=== PATIENT | female | born 1935 | race Caucasian/White ===

== ENCOUNTER 2020-06-18 10:44 | Outpatient (REF) | payer MEDICARE, SELFPAY ==
[2020-06-18 10:57] LABS: MANUAL DIFF FLAG NO
[2020-06-18 11:40] LABS: Basophils Percent Auto 0.3 % (0-2); Eosinophils Absolute Auto 0.1 X10*3/uL (0.0-0.4); Eosinophils Percent Auto 2.1 % (0-4); Hematocrit 36.6 % (37-47); Hemoglobin 12.4 g/dl (12.0-16.0); Imm Gran Abs Auto 0.01 X10*3/uL (0.00-0.03); Imm Gran Pct Auto 0.2 % (0.0-0.4); Lymphocytes Absolute Auto 2.2 X10*3/uL (1.2-4.9); Lymphocytes Percent Auto 36.1 % (20-40); Mean Corpuscular HGB Conc 33.9 g/dl (31.0-35.0); Mean Corpuscular Hemoglobin 32.5 pg (27.0-33.0); Mean Corpuscular Volume 95.8 fL (80-98); Mean Platelet Volume 11.2 fL (9.4-12.3); Monocytes Absolute Auto 0.4 X10*3/uL (0.1-1.2); Monocytes Percent Auto 7.2 % (2-11); Neutrophils Absolute Auto 3.3 X10*3/uL (2.0-8.3); Neutrophils Percent Auto 54.1 % (45-73); Platelet Count 237 X10*3/uL (160-400); Red Blood Count 3.82 X10*6/uL (4.20-5.50); Red Cell Distribution Width 11.9 % (11.0-16.0); White Blood Count 6.1 X10*3/uL (4.8-10.8)
[2020-06-18 11:52] LABS: Glucose Urine UA NEG (NEG); Leukocyte Esterase Urine TRACE (NEG); Nitrite Urine NEG (NEG); PH 6.5 (5.0-8.0); Urine Blood NEG (NEG); Urine Ketones NEG (NEG); Urine Protein NEG (NEG-TRACE)
[2020-06-18 11:55] LABS: Appearance Urine CLOUDY; Color Urine YELLOW; Estimated Average Glucose 100 mg/dL; Hemoglobin A1c % 5.1 %
[2020-06-18 12:08] LABS: Creatinine Urine 98.77 mg/dL; Microalbum/Creatinine Ratio Ur 47.5 ug/mg cr
[2020-06-18 12:10] LABS: Bacteria Urine 3+ /LPF; RBC Urine 0-2 /HPF (0); Squamous Epithelial Cell Urine 1+ /LPF
[2020-06-18 12:13] LABS: Alanine Aminotransferase 25 U/L (0-31); Albumin Level 4.5 g/dL (3.5-5.0); Alkaline Phosphatase 86 U/L (39-117); Anion Gap 13 (12-20); Aspartate Amino Transferase 28 U/L (5-31); Bilirubin Total 1.2 mg/dL (0.0-1.0); Blood Urea Nitrogen 17 mg/dL (9-16); Calcium 9.6 mg/dL (8.4-10.2); Carbon Dioxide 30 mmol/L (22-29); Chloride 99 mmol/L (96-108); Cholesterol 175 mg/dL; Estimated Glomerular Filt Rate > 60; Glucose Fasting 92 mg/dL (60-99); HDL Cholesterol 78 mg/dL; LDL Cholesterol Calculated 71 mg/dl; Potassium 4.1 mmol/L (3.3-5.1); Sodium 138 mmol/L (135-145); Total Protein 7.1 g/dL (6.5-8.0); Triglycerides 134 mg/dL
[2020-06-18 12:28] LABS: Reflex LDLD? No
[2020-06-18 12:34] LABS: TSH reflex Free T4 1.02 uIU/mL (0.32-4.0)
== END 2020-06-18 10:45 | disposition home or self-care (01) ==
LOC: HO.LNP 10:44
PROVIDERS: Visit Provider Internal Medicine
DX: E05.90 Thyrotoxicosis, unspecified without thyrotoxic crisis or storm (principal); I10 Essential (primary) hypertension; R73.03 Prediabetes; E78.00 Pure hypercholesterolemia, unspecified
CPT/HCPCS: 80053; 80061; 81001; 81003; 82043; 83036; 84443; 85025

== ENCOUNTER 2020-08-13 13:30 | Outpatient (REF) | payer SELFPAY ==
--- NOTE | 2020-08-13 14:06 | MHC.AU.P13 ---
Hearing Instrument Maintenance Date of Visit: 08/13/20 Right Ear: Staffing Analyst: Phonak Model: [place] SP Serial Number: [id number] Repair Warranty: Loss and Damage Warranty: Battery Size: 13 Color: beige Tubing: #13 THICK DOUBLE BEND Left Ear: Staffing Analyst: Phonak Model: IGNACIO SP Serial Number: [id number] Repair Warranty: Loss and Damage Warranty: Battery Size: 13 Color: BEIGE Follow-Up Summary: Aids brought in for cleaning - cleaned aids and retubed earmolds - both amplifying clearly. Recommended updated audiological evaluation. Recommendations: Recommendations: Hearing instrument follow-up or maintenance as needed. Signature: Provider: MISAEL Vanegas
== END 2020-08-13 13:31 | disposition home or self-care (01) ==
LOC: HO.HAP 13:30
PROVIDERS: Visit Provider Internal Medicine
DX: Z46.1 Encounter for fitting and adjustment of hearing aid (principal)
CPT/HCPCS: 99499

== ENCOUNTER 2021-02-08 00:18 | Inpatient (IN) | payer MEDICARE, SELFPAY ==
[2021-02-08] VITALS (22 sets, daily range): BP systolic 110–202; BP diastolic 65–103; PULSE 70–89; RESP 12–20; TEMP 36.3–36.8; O2SAT 90–100; BMI 23.0; BMI 25.0
--- NOTE | ~2021-02-08 | XR_ITS ---
EXAMINATION: XR ANKLE, RIGHT CLINICAL INFORMATION: Fall, right ankle pain, injury with deformity rule out fract COMPARISON: None TECHNIQUE: AP, lateral, and mortise views of the right ankle. FINDINGS: Bones are markedly osteopenic. There is a oblique transverse fracture of the base of the medial malleolus with lateral displacement of the medial malleolar fragment by 3 mm. . There is a oblique Hernandez B fracture of the distal fibula with lateral displacement of the distal fibular fracture by 5 mm. As seen on the lateral view, there is cortical irregularity along the posterior malleolus which is likely due to a mildly displaced posterior malleolar avulsion fracture, not well seen on the AP view. Surrounding soft tissues are swollen. There is mild widening of the medial ankle mortise. Diffuse edema signal. Moderate sized enthesopathic spur is present at the plantar fascial origin on the calcaneus. 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 XR/XR ankle RT 2V IMPRESSION: 1. Trimalleolar fracture at the right ankle with mild lateral displacement of the distal fracture fragments. 2. Marked osteopenia.
--- NOTE | ~2021-02-08 | XR_ITS ---
EXAMINATION: XR ANKLE, RIGHT CLINICAL INFORMATION: Postreduction films. COMPARISON: Same date at 12:44 AM TECHNIQUE: Four views of the right ankle. FINDINGS: Cast material is in place. There is persistent lateral displacement of the medial and lateral malleolar fracture fragments. The suspected posteriorly the fracture is not well seen. There is persistent widening of the medial ankle mortise. Soft tissues are swollen. Plantar calcaneal enthesopathic spur. Osteophyte is at the first MTP joint. XR/XR ankle RT 2V IMPRESSION: Persistent lateral displacement of the malleolar fracture fragments and talus status post splinting.
--- NOTE | ~2021-02-08 | FL_ITS ---
EXAMINATION: XR FLUOROSCOPY WITH IMAGES CLINICAL INFORMATION: Right ankle fracture COMPARISON: Previous x-ray 02/08/2021 TECHNIQUE: Fluoroscopy performed by Dr. Nilson Medel. Fluoroscopy time: 0.2 minutes DAP: 0.008 mGym2 Images: 3 FINDINGS: There is a plate and screws transfixing the distal fibular shaft fracture. There are 2 screws transfixing the transverse medial malleolar fracture. There is improved alignment. FL/FL guidance in OR IMPRESSION: Fluoroscopic guidance for ORIF of right ankle fracture.
--- NOTE | 2021-02-08 00:37 | ECG_ITS ---
Test Reason : FALL Blood Pressure : / mmHG Vent. Rate : 072 BPM Atrial Rate : 072 BPM P-R Int : 182 ms QRS Dur : 074 ms QT Int : 406 ms P-R-T Axes : 062 011 017 degrees QTc Int : 444 ms Sinus rhythm with occasional Premature ventricular complexes Nonspecific T wave abnormality Inferior leads Abnormal ECG No previous ECGs available Referred By: Momo Reno Electronically Signed By:BEATRICE PASCAL MD
--- NOTE | 2021-02-08 00:38 | ED_ITS ---
HPI - Fall General Chief Complaint: Fall Stated Complaint: ankle pain due to pain Time Seen by Provider: 02/08/21 00:32 Source: patient Mode of arrival: EMS Limitations: no limitations History of Present Illness HPI Narrative: 85-year-old female who presents emergency department for evaluation of a right ankle injury from a trip and fall at home. The patient states that she tripped and injured her right ankle. She states that after injuring her ankle she was unable to stand and walk. She denies any other inju ry. She denies head, neck, chest, abdominal injury. The patient states that she lives at home with her who has dementia. She states that her daughter lives nearby. She states that she did drink some wine last night but cannot quantify the amount of wine that she drank. She denied being ill in any way prior to the fall. She is currently complaining of right ankle pain which she describes as a sharp achy pain which is worse with movement. The pain is 9/10 at its worst. She did not take any pain medications prior to coming to the emergency department. Related Data Home Medications Medication Instructions Recorded Confirmed Unobtainable 02/08/21 02/08/21 Allergies Allergy/AdvReac Type Severity Reaction Status Date / Time No Known Allergies Allergy Unverified 12/21/19 15:56 [No Known Allergies*] Review of Systems Review of Systems: Yes all other systems are reviewed and are negative [facility] Past Medical History [facility] Narrative: Past medical history: Hypertension, hyperlipidemia, vasovagal syncope. Past surgical history: None. Social history: The patient lives with her has dementia. She states that her daughter lives nearby. She denies tobacco use. She does drink alcohol occasionally and she states she drink wine last night. She denies drug use. Medical History (Updated 02/08/21 @ 07:24 by Momo Reno MD) High cholesterol HTN (hypertension) Vaso-vagal reaction Social History Social History Alcohol intake: current Alcohol intake frequency: a few times a week Patient Tobacco Use Status: Never used Tobacco Use of substances other than those prescribed or required for medical reasons: No Advance Directives: No Advance Directives Information Provided: No Physical Exam Vital Signs: Vital Signs: Last Vital Signs Temp 98.1 F 02/08/21 01:30 Pulse 72 02/08/21 06:00 Resp 16 02/08/21 06:00 BP 174/70 H 02/08/21 04:00 Pulse Ox 95 02/08/21 02:44 Body Mass Index 23.0 Const: General: cooperative and no acute distress Orientation/consciousness: oriented to person and oriented to place Limitations: no limitations HENMT: Head: Yes normal to inspection, Yes normocephalic and Yes atraumatic Ears: external ears normal General nose exam: Normal external nose present Face and sinus: Yes normal facial exam Mouth: Normal oral and palatal mucosa present Throat: Yes posterior oropharynx normal Eyes: General: appearance normal, both eyes and all related structures Pupils: Equal, round and reactive pupils present Neck: Neck: Yes normal visual inspection, Yes no lymphadenopathy, Yes trachea midline and Yes supple Chest: Chest palpation & inspection: normal inspection of the chest and normal palpation of entire chest wall Resp: Effort & Inspection: normal respiratory effort and able to speak in complete sentences Auscultation: clear to auscultation bilaterally Cardio: Rate: regular rate Rhythm: abnormal rhythm regularly irregular Heart sounds: S1 normal heart sound present, S2 normal heart sound present and no murmurs GI: Inspection: Yes normal to inspection Palpation (GI): Soft to palpation, nontender and no guarding Auscultation: normal bowel sounds : General: Yes no CVA tenderness Back/Spine/Pelvis: Back: no CVA tenderness Skin: General skin exam: no rashes or lesions noted Neuro: General: oriented to person and oriented to place Cranial nerves: Yes CN's II-XII intact bilaterally and Yes Equal, round and reactive pupils present Cognition (Neuro): normal cognition Motor exam (neuro): 5/5 motor strength present throughout Extrem: Other: The patient has ecchymosis and soft tissue swelling to her right ankle with obvious deformity to the ankle, her extremities neurovascularly intact. Psych: Appearance: grossly normal Speech and movement: Normal speech and movement present Affect: normal affect Attitude: cooperative Thought process: Normal thought process present Thought content: Normal thought content present Course Course Course Narrative: 85-year-old female who presents emergency department for evaluation of trip and fall with injury to her right ankle. The patient's vital signs revealed an elevated blood pressure of 192/88 otherwise were unremarkable. Her exam does reveal an obvious deformity with ecchymosis and soft tissue swelling of her right ankle. I did order laboratory evaluation includes CBC, CMP, PT/INR, PTT, blood alcohol level. Twelve EKG and right ankle x-rays will be obtained. The patient'morgan will be treated with morphine 4 mg IV. 0653: The patient's x-ray of her right ankle revealed a trimalleolar fracture at the right ankle with mild lateral displacement of the distal fracture fragments. Laboratory evaluation revealed an H&H of 12 and 35.7. I was detectable but not elevated at 4.1. Blood alcohol level was elevated at 105. Using procedural sedation, I did reduce the patient's fracture and the patient was placed in a sugar-tung Ortho Glass and posterior ortho glass splint. Patient's extremities neurovascular intact. I did discuss the patient's fracture with the covering orthopedic physician kindergarten assistant,Rosalind Silva. She recommended follow-up with Orthopedics in several days to determine if the patient needs outpatient surgery or this could be managed with casting. The patient's age, the patient will be kept in the emergency department for case management and physical therapy evaluation to determine if she can be discharged home or if she needs to go to [facility]. I will also try to obtain an Orthopedic consult while the patient is here in the emergency department. 0716: Physician observation started at 0716. Patient placed in physician observation because the patient needed more time for case management and PT evaluation determine if the patient can be safely discharged home were she needs [facility]. At the time observation was started the patient's vitals were stable, patient is alert and oriented , Neuro: nonfocal, CV RRR, Lungs clear, right lower extremity neurovascular intact, ortho glass splint in place. Procedures Orthopedic Fracture Reduction Right ankle trimalleolar fracture: Time Out Performed: Yes Side: right Fracture Reduction Location: tibia (Distal) and fibula (Distal) Analgesia: procedural sedation (Propofol) Technique: traction/counter-traction Post Reduction X-rays Demonstrate: acceptable reduction Post-reduction neuro exam: intact Post-reduction vascular exam: intact Splint Applied: Yes (Ortho glass stirrup splint and posterior short-leg splint) Patient Tolerated Procedure: well MDM - Fall Lab Data Result diagrams: 02/08/21 00:48 02/08/21 00:48 Labs: Lab Results 02/08/21 02/08/21 02/08/21 Range/Units 00:48 00:48 00:48 WBC 9.3 (4.8-10.8) X10*3/uL RBC 3.78 L (4.20-5.50) X10*6/uL Hgb 12.0 (12.0-16.0) g/dl Hct 35.7 L (37.0-47.0) % MCV 94.4 (80.0-98.0) fL MCH 31.7 (27.0-33.0) pg MCHC 33.6 (31.0-35.0) g/dl RDW 11.9 (11.0-16.0) % Plt Count 226 (160-400) X10*3/uL MPV 10.5 (9.4-12.3) fL Immature Gran % (Auto) 0.2 (0.0-0.4) % Neut % (Auto) 73.3 H (45-73) % Lymph % (Auto) 19.7 L (20-40) % Bradley % (Auto) 5.7 (2-11) % Eos % (Auto) 0.9 (0-4) % Baso % (Auto) 0.2 (0-2) % Lymph # (Auto) 1.8 (1.2-4.9) X10*3/uL [place] # (Auto) 0.5 (0.1-1.2) X10*3/uL Eos # (Auto) 0.1 (0.0-0.4) X10*3/uL Baso # (Auto) 0.0 (0.0-0.2) X10*3/uL Abs Immat Gran (auto) 0.02 (0.00-0.03) X10*3/uL Absolute Neuts (auto) 6.8 (2.0-8.3) x10*3/uL Absolute Nucleated RBC 0.000 (0.0-0.012) X10*3/uL Nucleated RBC % (auto) 0.0 (0.0-0.2) /100WBC PT 10.5 (9.9-13.0) SEC INR 0.9 (0.9-1.1) APTT 29.3 (24.1-38.0) SEC Sodium 136 (135-145) mmol/L Potassium 4.3 (3.3-5.1) mmol/L Chloride 99 (96-108) mmol/L Carbon Dioxide 25 (22-29) mmol/L Anion Gap 16 (12-20) BUN 14 (9-16) mg/dL Creatinine 0.75 (0.5-1.4) mg/dL Estim Creat Clear Calc 46.5 Estimated GFR > 60 Random Glucose 121 H (60-115) mg/dL Calcium 9.8 (8.4-10.2) mg/dL Total Bilirubin 0.8 (0.0-1.0) mg/dL AST 28 (5-31) U/L ALT 31 (0-31) U/L Alkaline Phosphatase 96 (39-117) U/L Troponin I High Sens (<3.5-17.0) ng/L Total Protein 6.8 (6.5-8.0) g/dL Albumin 4.2 (3.5-5.0) g/dL Ethyl Alcohol mg/dL 02/08/21 02/08/21 Range/Units 00:48 01:03 WBC (4.8-10.8) X10*3/uL RBC (4.20-5.50) X10*6/uL Hgb (12.0-16.0) g/dl Hct (37.0-47.0) % MCV (80.0-98.0) fL MCH (27.0-33.0) pg MCHC (31.0-35.0) g/dl RDW (11.0-16.0) % Plt Count (160-400) X10*3/uL MPV (9.4-12.3) fL Immature Gran % (Auto) (0.0-0.4) % Neut % (Auto) (45-73) % Lymph % (Auto) (20-40) % Bradley % (Auto) (2-11) % Eos % (Auto) (0-4) % Baso % (Auto) (0-2) % Lymph # (Auto) (1.2-4.9) X10*3/uL [place] # (Auto) (0.1-1.2) X10*3/uL Eos # (Auto) (0.0-0.4) X10*3/uL Baso # (Auto) (0.0-0.2) X10*3/uL Abs Immat Gran (auto) (0.00-0.03) X10*3/uL Absolute Neuts (auto) (2.0-8.3) x10*3/uL Absolute Nucleated RBC (0.0-0.012) X10*3/uL Nucleated RBC % (auto) (0.0-0.2) /100WBC PT (9.9-13.0) SEC INR (0.9-1.1) APTT (24.1-38.0) SEC Sodium (135-145) mmol/L Potassium (3.3-5.1) mmol/L Chloride (96-108) mmol/L Carbon Dioxide (22-29) mmol/L Anion Gap (12-20) BUN (9-16) mg/dL Creatinine (0.5-1.4) mg/dL Estim Creat Clear Calc Estimated GFR Random Glucose (60-115) mg/dL Calcium (8.4-10.2) mg/dL Total Bilirubin (0.0-1.0) mg/dL AST (5-31) U/L ALT (0-31) U/L Alkaline Phosphatase (39-117) U/L Troponin I High Sens 4.1 (<3.5-17.0) ng/L Total Protein (6.5-8.0) g/dL Albumin (3.5-5.0) g/dL Ethyl Alcohol 105 mg/dL ECG Data Attestation: I personally reviewed and interpreted this ECG as follows: Interpretation: 0059 normal sinus rhythm rate of 72, normal OH interval QRS interval QTC interval, occasional PVC, no ST segment elevation, no ST segment depression, no significant T-wave abnormalities. Discharge Plan Discharge Clinical Impression: Closed trimalleolar fracture of ankle Qualifiers: Encounter type: initial encounter Laterality: right Qualified Code(s): S82.851A - Displaced trimalleolar fracture of right lower leg, initial encounter for closed fracture Fall Qualifiers: Encounter type: initial encounter Qualified Code(s): W19.XXXA - Unspecified fall, initial encounter Alcohol intoxication Qualifiers: Complication of substance-induced condition: uncomplicated Qualified Code(s): F10.920 - Alcohol use, unspecified with intoxication, uncomplicated Prescriptions: No Action Unobtainable RF: 0
[2021-02-08] MEDS: Morphine Sulfate 4 MG/ML CARTRIDGE IVPUSH ×2 (00:50→02:31)
[2021-02-08 00:55] LABS: MANUAL DIFF FLAG NO
--- NOTE | 2021-02-08 00:55 | PC.NURSE ---
x-ray at bedside patient medicated for pain. last time she had something to eat or drink was at 6pm last night. reports pain is 4/0 whikle stationary, 9/10 with movement.
[2021-02-08 01:01] LABS: Basophils Percent Auto 0.2 % (0-2); Eosinophils Absolute Auto 0.1 X10*3/uL (0.0-0.4); Eosinophils Percent Auto 0.9 % (0-4); Hematocrit 35.7 % (37.0-47.0); Imm Gran Abs Auto 0.02 X10*3/uL (0.00-0.03); Imm Gran Pct Auto 0.2 % (0.0-0.4); Lymphocytes Absolute Auto 1.8 X10*3/uL (1.2-4.9); Lymphocytes Percent Auto 19.7 % (20-40); Mean Corpuscular HGB Conc 33.6 g/dl (31.0-35.0); Mean Corpuscular Hemoglobin 31.7 pg (27.0-33.0); Mean Corpuscular Volume 94.4 fL (80.0-98.0); Mean Platelet Volume 10.5 fL (9.4-12.3); Monocytes Absolute Auto 0.5 X10*3/uL (0.1-1.2); Monocytes Percent Auto 5.7 % (2-11); Neutrophils Absolute Auto 6.8 x10*3/uL (2.0-8.3); Neutrophils Percent Auto 73.3 % (45-73); Platelet Count 226 X10*3/uL (160-400); Red Blood Count 3.78 X10*6/uL (4.20-5.50); Red Cell Distribution Width 11.9 % (11.0-16.0); White Blood Count 9.3 X10*3/uL (4.8-10.8)
[2021-02-08 01:12] LABS: INTERNATIONAL NORM RATIO 0.9 (0.9-1.1); Prothrombin Time 10.5 SEC (9.9-13.0)
[2021-02-08 01:14] LABS: Partial Thromboplastin Time 29.3 SEC (24.1-38.0)
[2021-02-08 01:15] LABS: Ethanol 105 mg/dL
[2021-02-08 01:19] LABS: Alanine Aminotransferase 31 U/L (0-31); Albumin Level 4.2 g/dL (3.5-5.0); Alkaline Phosphatase 96 U/L (39-117); Anion Gap 16 (12-20); Aspartate Amino Transferase 28 U/L (5-31); Bilirubin Total 0.8 mg/dL (0.0-1.0); Blood Urea Nitrogen 14 mg/dL (9-16); Calcium 9.8 mg/dL (8.4-10.2); Carbon Dioxide 25 mmol/L (22-29); Chloride 99 mmol/L (96-108); Creatinine Clr Calc Pharmacy 46.5; Estimated Glomerular Filt Rate > 60; Glucose Random 121 mg/dL (60-115); Potassium 4.3 mmol/L (3.3-5.1); Sodium 136 mmol/L (135-145); Total Protein 6.8 g/dL (6.5-8.0)
[2021-02-08 01:27] LABS: Troponin-I High Sensitivity 4.1 ng/L (<3.5-17.0)
[2021-02-08] MEDS: propofoL 200 MG/20 ML VIAL 60 MG IVPUSH (01:56)
--- NOTE | 2021-02-08 02:15 | PC.NURSE ---
PATIENT TOLERATED PROCEDURE WELL. MD GIVING 30MG OF PROPROFOL IV, WITNESSED WASTE OF THE ADDITIONAL ORDERED 30 MG WASTED WITH ISAIAS KENYON. DOCUMENTED ADJUSTED DOSE IN THE EMAR.
--- NOTE | 2021-02-08 03:31 | PC.NURSE ---
PATIET UNSURE OF HOME MEDICATION FAMILY MEMBER UNSURE OF MEDICATIONS. FAMILY MEMBER INSTRUCTED TO BRING MEDICATION LIST WHEN RETURNING TO THE DEPARTMENT IN THE AM. PATIENT OFFERING NO COMPLAINTS AT THIS TIME PAIN IS 1/10. NO DISTRESS NOTED.
--- NOTE | 2021-02-08 08:34 | PHA.MEDREC ---
Pharmacy Consult ? Medication Reconciliation Pharmacy has completed the medication reconciliation.
[2021-02-08] MEDS: ondansetron HCL 4 MG/2 ML VIAL IVPUSH (09:11)
--- NOTE | 2021-02-08 09:52 | MHC.CM.ED ---
pt would like to go to [facility] as a first choice, secondary choices are [facility] in [place]. pt has been vaccinated c [employer]: mid may and beginning of june of 2020. a HCP was completed per family request. daughter is at bedside. at the time of this note patient was admitted as inpatient . cm to cont. to follow.
--- NOTE | 2021-02-08 10:57 | PC.NURSE ---
The pt is resting in bed, alert and oriented x 3, daughter at bedside, RLE splint in place at site of knon R ankle Fx. pt is TBADM and she verbalizes an understanding of this and of the need for R ankle surgical repair. Speech clear and appropriate. SHe is pain free. No CP or SOB. She is taking PO food and fluids without difficulty. Pt is incontinent of urine - skin yhas been cleansed, linens changed. Awaiting inpatient bed assignment,
[2021-02-08 12:24] LABS: COVID-19 Test Negative (Negative); IDNOW Serial# 9DD0AD1C
--- NOTE | 2021-02-08 12:32 | PM.IMCN ---
History of Present Illness Data of Consult Service Date: 02/08/21 Requesting physician: Nilson Medel Primary Care Provider: Cesar Estrada MD [facility] Reason for consult: fall, foot fx 85-year-old female with past medical history of hypertension, Graves disease status post thyroidectomy in the past, hyperlipidemia, legally blind, loud on hearing: Came to the hospital status post fall. Patient said that she was watching TV show called clementoparsnehal-and then she went to switch of the lights-she says that she was supposed to return slowly but trying to turn quickly and lost balance and fell down. Denies any chest pain or palpitations or dizziness or shortness of breath before during or after the episode. She said she did not loss of consciousness She also has history of falling down before. Denies any new complaint abdominal pain or fever or chills or nausea or vomiting Denies any cough Denies any weakness or numbness. Lab imaging and EKG reviewed: Foot x-ray: Shows a right foot fracture CBC: WBCs 9.3, H&H 12.0/35.7 Platelets 226 For BUN: 14, creatinine 0.75 potassium 4.3 trop 4.1 EKG: NSR , hr 72 Socially: She lives with her a spent, ADL independent before the fall, could able to climb 1 flight of stair but she said is difficult to walk excessively for her on from last few years due to a knee arthritis. Review of Systems Review of Systems: As above. Yes all other systems are reviewed and are negative [facility] Medical History High cholesterol HTN (hypertension) Vaso-vagal reaction Pertinent family history: She says for her sister had heart disease. Social History Alcohol intake: current Alcohol intake frequency: a few times a week Patient Tobacco Use Status: Never used Tobacco Use of substances other than those prescribed or required for medical reasons: No Advance Directives: No Advance Directives Information Provided: No Meds Allergies Allergy/AdvReac Type Severity Reaction Status Date / Time No Known Allergies Allergy Unverified 12/21/19 15:56 [No Known Allergies*] Active Medications: Current Medications Acetaminophen (Acetaminophen 325 Mg Tablet) 650 mg PO Q6H PRN PRN Reason: Pain, Mild (Pain Scale 1-3) Docusate Sodium (Docusate Sodium 100 Mg Capsule) 100 mg PO BID [facility] Hydromorphone HCl (Hydromorphone Hcl 0.5 Mg/0.5 Ml Syringe) 0.25 mg IVPUSH Q4H PRN; Protocol PRN Reason: Pain, Severe (Pain Scale 7-10) Oxycodone HCl (Oxycodone Hcl Immed Release 5 Mg Tablet) 5 mg PO Q4H PRN PRN Reason: Pain, Moderate (Pain Scale 4-6 Pharmacy Consult (Consult Rx Perform Med Rec) 1 each MISCELLANE ONCE PRN PRN Reason: Consult order Sodium Chloride (0.9 % Sodium Chloride Flush 3 Ml Syringe) 3 ml IVFLUSH QSHIFT [facility] Home Medications Medication Instructions Recorded Confirmed Last Taken Type atorvastatin 10 mg tablet 10 mg PO DAILY 02/08/21 02/08/21 02/07/21 History estradiol 1 g VAGINAL SUWE 02/08/21 02/08/21 02/05/21 History latanoprost 0.005 % eye drops 1 drp OPHTHALMIC-RIGHT BEDTIME 02/08/21 02/08/21 02/07/21 History levothyroxine 100 mcg tablet 100 mcg PO DAILY 02/08/21 02/08/21 02/07/21 History metoprolol succinate 50 mg 50 mg PO DAILY 02/08/21 02/08/21 02/07/21 History tablet,extended release 24 hr omeprazole 20 mg capsule,delayed 1 cap PO DAILY 02/08/21 02/08/21 02/07/21 History release valsartan 320 mg tablet 320 mg PO DAILY 02/08/21 02/08/21 02/07/21 History Physical Exam Vital Signs and Narrative: Vital Signs: Last Vital Signs Temp 98.1 F 02/08/21 01:30 Pulse 81 02/08/21 11:56 Resp 14 02/08/21 11:56 BP 184/75 H 02/08/21 11:56 Pulse Ox 95 02/08/21 11:56 Body Mass Index 23.0 Physical exam: Appearance: Alert.? Oriented X3.? not in distress.? Eyes: Pupils equal, round and reactive to light.? Sclera nonicteric.? ENT: Pharynx normal.? Moist mucous membranes. cvs: rrr, [id number] , no murmur res: clear to auscultation ,no rhonchii or wheezing abd: no rebound or guarding ,nt, bs present. ext pulses present , no cyanosis oe edema , right foot wrapped with dressing , able to wiggle toes. neuro: axo3 , nonfocal. Results Labs CBC and Chem 7: 02/08/21 00:48 02/08/21 00:48 Labs: Laboratory Results - last 24 hr 02/08/21 02/08/21 02/08/21 00:48 00:48 00:48 MCV 94.4 MCH 31.7 MCHC 33.6 RDW 11.9 Plt Count 226 MPV 10.5 Immature Gran % (Auto) 0.2 Neut % (Auto) 73.3 H Lymph % (Auto) 19.7 L [place] % (Auto) 5.7 Eos % (Auto) 0.9 Baso % (Auto) 0.2 Lymph # (Auto) 1.8 [place] # (Auto) 0.5 Eos # (Auto) 0.1 Baso # (Auto) 0.0 Abs Immat Gran (auto) 0.02 Absolute Neuts (auto) 6.8 Absolute Nucleated RBC 0.000 Nucleated RBC % (auto) 0.0 PT 10.5 INR 0.9 APTT 29.3 Anion Gap 16 Estim Creat Clear Calc 46.5 Estimated GFR > 60 Random Glucose 121 H Calcium 9.8 Total Bilirubin 0.8 AST 28 ALT 31 Alkaline Phosphatase 96 Troponin I High Sens Total Protein 6.8 Albumin 4.2 Ethyl Alcohol COVID-19 ([facility]) COVID-19 Clin Com 02/08/21 02/08/21 02/08/21 00:48 01:03 11:59 MCV MCH MCHC RDW Plt Count MPV Immature Gran % (Auto) Neut % (Auto) Lymph % (Auto) [place] % (Auto) Eos % (Auto) Baso % (Auto) Lymph # (Auto) [place] # (Auto) Eos # (Auto) Baso # (Auto) Abs Immat Gran (auto) Absolute Neuts (auto) Absolute Nucleated RBC Nucleated RBC % (auto) PT INR APTT Anion Gap Estim Creat Clear Calc Estimated GFR Random Glucose Calcium Total Bilirubin AST ALT Alkaline Phosphatase Troponin I High Sens 4.1 Total Protein Albumin Ethyl Alcohol 105 COVID-19 ([facility]) Negative COVID-19 Clin Com See Note Imaging Radiologist's Impressions: Impressions Ankle X-Ray 02/08/21 00:32 IMPRESSION: 1. Trimalleolar fracture at the right ankle with mild lateral displacement of the distal fracture fragments. 2. Marked osteopenia. Ankle X-Ray 02/08/21 02:19 IMPRESSION: Persistent lateral displacement of the malleolar fracture fragments and talus status post splinting. Assessment and Plan (1) Hypothyroid: Status: Acute 85-year-old female with past medical history of hypertension, supplement-came to the hospital because of fall and foot fracture. 1. foot Fx: Pain mangement with oxycodone and morphine bowel regimen further management as per surgery Rcri -no hx of heart dis, Hf, chd, dm,cerebrovascular dis or pulmonary dis, function status somewhat limited but could climb 1 flight 12 steps stairs at home , ekg seems fine. Patient is moderate risk for given surgical procedure. 2. HTn:continue metoprolol and valsartan 3.Graves disease status post thyroidectomy :on levothyroxine . 4. Hlp: continue statin. 5. hx o alcohol use : once weekly add thiamine folic acid. dvt prophylax: mech devices as per primaty team. code status :full code Above management discussed with the patient patient daughter at bedside in detail length they both understand and in agreement with the above plan including code status currently patient is full code. Time spent 70 minutes
[2021-02-08 13:05] LABS: Estimated Average Glucose 103 mg/dL; Hemoglobin A1c % 5.2 %
--- NOTE | 2021-02-08 13:16 | P.HPOP_ITS ---
History of Present Illness History of Present Illness Date of Service: 02/08/21 <Rosalind Silva PA-C - Last Filed: 02/08/21 13:25> 02/11/21 <Nilson Medel MD - Last Filed: 02/11/21 13:30> Chief complaint: left distal femur fracture <Rosalind Silva PA-C - Last Filed: 02/08/21 13:25> Narrative: Licha Holguin is a 85 year old female with a past medical history significant for hypertension and hyperlipidemia who presents to the emergency department after sustaining a unwitnessed mechanical fall. She is accompanied by her daughter Mirella at bedside. The patient is ambulatory at baseline without assistance and lives at home with her who has dementia in which she cares for. She denies hitting her head, shortness of breath, or chest pain. She does have a prior history of syncopal episodes a which is attributed to orthostatic hypotension. <Rosalind Silva PA-C - Last Filed: 02/08/21 13:25> Review of Systems Review of Systems: Yes all other systems are reviewed and are negative <Rosalind Silva PA-C - Last Filed: 02/08/21 13:25> [facility] Past Medical History Medical History: Medical History High cholesterol HTN (hypertension) Vaso-vagal reaction <Rosalind Silva PA-C - Last Filed: 02/08/21 13:25> Social History Social History: Social History Household Members: Spouse Housing: House Do you presently have visiting nurse or other home services: No Alcohol intake: current Alcohol intake frequency: a few times a week Patient Tobacco Use Status: Never used Tobacco Use of substances other than those prescribed or required for medical reasons: No Currently Displaying Signs/Symptoms of Drug Intoxication Withdrawal: No Have you been hit, kicked, punched, or otherwise hurt by someone within the past year? If so, by whom?: No Do you feel safe in your current relationship?: No Is there a partner from a previous relationship who is making you feel unsafe now?: No Are you made to feel afraid or neglected: No Spiritual Healthcare Practices: latter day Are you DNR?: No Advance Directives: No Advance Directives Information Provided: No Advance Directives on File: Yes Do you have thoughts of harming others: None Do you have a plan to hurt others: No Plan Recently lost weight without trying: No How much weight loss: 2-13 pounds Eating poorly because of decreased appetite: No Nutrition screen score: 1 Nutrition Risks: No Nutritional Risk Patient : No : No Poor oral hygiene: No Current occupational status: retired <Rosalind Silva PA-C - Last Filed: 02/08/21 13:25> Meds Allergies/Adverse reactions: Allergies Allergy/AdvReac Type Severity Reaction Status Date / Time No Known Allergies Allergy Unverified 12/21/19 15:56 [No Known Allergies*] <Rosalind Silva PA-C - Last Filed: 02/08/21 13:25> Active Medications: Current Medications Acetaminophen (Acetaminophen 325 Mg Tablet) 650 mg PO Q6H PRN PRN Reason: Pain, Mild (Pain Scale 1-3) Atorvastatin Calcium (Atorvastatin Calcium 10 Mg Tablet) 10 mg PO DAILY [facility] Docusate Sodium (Docusate Sodium 100 Mg Capsule) 100 mg PO BID [facility] Hydromorphone HCl (Hydromorphone Hcl 0.5 Mg/0.5 Ml Syringe) 0.25 mg IVPUSH Q4H PRN; Protocol PRN Reason: Pain, Severe (Pain Scale 7-10) Latanoprost (Latanoprost 0.005 % Ophth Vivien 2.5 Ml Drops) 1 drop EYE-RIGHT BEDTIME [facility] Levothyroxine Sodium (Levothyroxine Sodium 100 Mcg Tablet) 100 mcg PO DAILY@0600 [facility] Metoprolol Succinate (Metoprolol Succinate Er 50 Mg Tab.Er.24h) 50 mg PO DAILY [facility]; Protocol Omeprazole (Omeprazole 20 Mg Capsule.Dr) 20 mg PO DAILY@0630 [facility] Oxycodone HCl (Oxycodone Hcl Immed Release 5 Mg Tablet) 5 mg PO Q4H PRN PRN Reason: Pain, Moderate (Pain Scale 4-6 Pharmacy Consult (Consult Rx Perform Med Rec) 1 each MISCELLANE ONCE PRN PRN Reason: Consult order Sodium Chloride (0.9 % Sodium Chloride Flush 3 Ml Syringe) 3 ml IVFLUSH [facility] Valsartan (Valsartan 320 Mg Tablet) 320 mg PO DAILY [facility]; Protocol <Rosalind Silva PA-C - Last Filed: 02/08/21 13:25> Home medications: Home Medications Medication Instructions Recorded Confirmed Last Taken Type atorvastatin 10 mg tablet 10 mg PO DAILY 02/08/21 02/08/21 02/07/21 History estradiol 1 g VAGINAL SUWE 02/08/21 02/08/21 02/05/21 History latanoprost 0.005 % eye drops 1 drp OPHTHALMIC-RIGHT BEDTIME 02/08/21 02/08/21 1 04/09/20 History levothyroxine 100 mcg tablet 100 mcg PO DAILY 02/08/21 02/08/21 02/07/21 History metoprolol succinate 50 mg 50 mg PO DAILY 02/08/21 02/08/21 02/07/21 History tablet,extended release 24 hr omeprazole 20 mg capsule,delayed 1 cap PO DAILY 02/08/21 02/08/21 02/07/21 History release valsartan 320 mg tablet 320 mg PO DAILY 02/08/21 02/08/21 02/07/21 History <Rosalind Silva PA-C - Last Filed: 02/08/21 13:25> Physical Exam Vital Signs: Vital Signs: Last Vital Signs Temp 98.1 F 02/08/21 01:30 Pulse 81 02/08/21 11:56 Resp 14 02/08/21 11:56 BP 184/75 H 02/08/21 11:56 Pulse Ox 95 02/08/21 11:56 Body Mass Index 23.0 <Rosalind Silva PA-C - Last Filed: 02/08/21 13:25> Const: General: cooperative, healthy appearing and no acute distress <Rosalind Silva PA-C - Last Filed: 02/08/21 13:25> Resp: Effort & Inspection: normal respiratory effort and able to speak in complete sentences <ANTONINA Wheeler Last Filed: 02/08/21 13:25> Cardio: Rate: regular rate <ANTONINA Wheeler Last Filed: 02/08/21 13:25> Peripheral pulses: Peripheral pulses 2+ throughout <Rosalind Drake ANTONINA Silva - Last Filed: 02/08/21 13:25> GI: Palpation (GI): Soft to palpation <Rosalind Drake ANTONINA Silva - Last Filed: 02/08/21 13:25> Skin: Lesions: no lesions <Rosalind Silva PA-C - Last Filed: 02/08/21 13:25> Rashes: no rashes <Rosalind Noelle Silva PA-C - Last Filed: 02/08/21 13:25> Extrem: Other: Right ankle skin is intact with minimal edema and ecchymosis. Patient is able to dorsiflex and plantar flex but is limited due to pain. Tenderness over the medial and lateral malleolus. Sensation is intact. Pedal pulse is not palpable on exam however the patient has warm perfusing tissue. <Rosalind Silva PA-C - Last Filed: 02/08/21 13:25> Results Labs Result Diagrams: : 02/11/21 06:04 02/11/21 06:04 <Rosalind K ANTONINA Silva Duong Last Filed: 02/08/21 13:25> Labs: Abnormal lab results 02/08/21 02/08/21 Range/Units 00:48 00:48 RBC 3.78 L (4.20-5.50) X10*6/uL Hct 35.7 L (37.0-47.0) % Neut % (Auto) 73.3 H (45-73) % Lymph % (Auto) 19.7 L (20-40) % Random Glucose 121 H (60-115) mg/dL H & H 02/08/21 Range/Units 00:48 Hgb 12.0 (12.0-16.0) g/dl Hct 35.7 L (37.0-47.0) % Coagulation 02/08/21 Range/Units 00:48 INR 0.9 (0.9-1.1) All other labs normal. <ANTONINA Wheeler Last Filed: 02/08/21 13:25> Assessment and Plan (1) Closed trimalleolar fracture of ankle: Qualifiers: Encounter type: initial encounter Laterality: right Qualified Code(s): S82.851A - Displaced trimalleolar fracture of right lower leg, initial encounter for closed fracture <Rosalind Silva PA-C - Last Filed: 02/08/21 13:25> Status: Acute <Rosalind Silva PA-C - Last Filed: 02/08/21 13:25> Ms. Holguin is an 85-year-old female with a past medical history significant for hypertension and hyperlipidemia. She also reports that she has had multiple syncopal episodes in the past which were treated to orthostatic hypotension. Yesterday evening she was in her home and sustained a mechanical fall. She presented to the ED where x-rays were obtained and she was found to have a right ankle trimalleolar fracture. The patient was placed in a posterior splint as well as a stirrup splint and Orthopedics was consulted for further evaluation and treatment. I discussed the case with Dr. Medel and explained the extent of the injury to the patient and her daughter Mirella. I explained the options available which include surgical intervention. I explained the procedure in detail along with the length of recovery and rehab course. I explained the risk, benefits and alternatives. Risk including, but not limited to infection, blood clots, bleeding, non union or malunion and nerve/tissue damage to surrounding areas. I answered all their questions and with their understanding they have consented to move forward with Operative Fixation of the right ankle. We will monitor the p atient daily for evaluation of swelling in preparation for surgical intervention. Emerita Vu can be reached at [phone] <Rosalind Silva PA-C - Last Filed: 02/08/21 13:25> Quality Stroke Does the patient have a stroke diagnosis?: No <Rosalind Silva PA-C - Last Filed: 02/08/21 13:25> VTE Prior VTE?: No <Rosalind Silva PA-C - Last Filed: 02/08/21 13:25> VTE Risk Level:: Surgical - very high <ANTONINA Wheeler Last Filed: 02/08/21 13:25> VTE Device Contraindication: N/A - Device Ordered <Rosalind Silva PA-C - Last Filed: 02/08/21 13:25> VTE Drug Contraindication: N/A - Med Ordered <Rosalind Silva PA-C - Last Filed: 02/08/21 13:25> Procedures Date of Service Date of Service: 02/08/21 <Rosalind Silva PA-C - Last Filed: 02/08/21 13:25>
[2021-02-08] MEDS: Metoprolol Succinate ER 50 MG TAB.ER.24H PO (14:25)
[2021-02-08] MEDS: Atorvastatin Calcium 10 MG TABLET PO (14:26)
[2021-02-08] MEDS: Levothyroxine Sodium 100 MCG TABLET PO (14:26)
[2021-02-08] MEDS: Valsartan 320 MG TABLET PO (14:32)
[2021-02-08] MEDS: 0.9 % Sodium Chloride Flush 3 ML SYRINGE IVFLUSH ×2 (16:27→21:57)
[2021-02-08] MEDS: amLODIPine Besylate 2.5 MG TABLET PO (19:24)
[2021-02-08] MEDS: ALPRAZolam 0.25 MG TABLET PO (19:25)
[2021-02-08] MEDS: Latanoprost 0.005 % Ophth Sol 2.5 ML DROPS 1 DROP EYE-RIGHT (21:57)
[2021-02-08] MEDS: Docusate Sodium 100 MG CAPSULE PO (21:57)
[2021-02-09] VITALS (10 sets, daily range): BP systolic 121–198; BP diastolic 68–88; PULSE 58–82; RESP 18–20; TEMP 36.3–37.1; O2SAT 91–97
[2021-02-09 05:40] LABS: MANUAL DIFF FLAG NO
[2021-02-09] MEDS: Levothyroxine Sodium 100 MCG TABLET PO (05:43)
[2021-02-09] MEDS: Omeprazole 20 MG CAPSULE.DR PO (05:43)
[2021-02-09 05:51] LABS: Basophils Percent Auto 0.1 % (0-2); Eosinophils Absolute Auto 0.1 X10*3/uL (0.0-0.4); Eosinophils Percent Auto 1.7 % (0-4); Hematocrit 32.5 % (37.0-47.0); Hemoglobin 11.1 g/dl (12.0-16.0); Imm Gran Abs Auto 0.01 X10*3/uL (0.00-0.03); Imm Gran Pct Auto 0.1 % (0.0-0.4); Lymphocytes Absolute Auto 1.3 X10*3/uL (1.2-4.9); Lymphocytes Percent Auto 16.6 % (20-40); Mean Corpuscular HGB Conc 34.2 g/dl (31.0-35.0); Mean Corpuscular Hemoglobin 32.3 pg (27.0-33.0); Mean Corpuscular Volume 94.5 fL (80.0-98.0); Mean Platelet Volume 10.9 fL (9.4-12.3); Monocytes Absolute Auto 0.8 X10*3/uL (0.1-1.2); Neutrophils Absolute Auto 5.4 x10*3/uL (2.0-8.3); Neutrophils Percent Auto 71.5 % (45-73); Platelet Count 187 X10*3/uL (160-400); Red Blood Count 3.44 X10*6/uL (4.20-5.50); White Blood Count 7.6 X10*3/uL (4.8-10.8)
[2021-02-09 06:06] LABS: Anion Gap 15 (12-20); Blood Urea Nitrogen 13 mg/dL (9-16); Calcium 9.3 mg/dL (8.4-10.2); Carbon Dioxide 27 mmol/L (22-29); Chloride 96 mmol/L (96-108); Creatinine Clr Calc Pharmacy 58.1; Estimated Glomerular Filt Rate > 60; Glucose Fasting 109 mg/dL (60-99); Sodium 134 mmol/L (135-145)
--- NOTE | 2021-02-09 08:36 | PM.PNORT ---
Subjective Subjective Date of Service: 02/09/21 Interval history: Patient is resting comfortably in bed. Overnight the patient had an increase in blood pressure. Medicine was notified and medications adjusted accordingly. Patient reports that her pain is tolerable. No additional complaints. Physical Exam Vital Signs: Vital Signs: Last Vital Signs Temp 97.6 F 02/09/21 07:14 Pulse 73 02/09/21 07:14 Resp 18 02/09/21 07:14 BP 185/82 H 02/09/21 07:14 Pulse Ox 93 02/09/21 07:14 Body Mass Index 25.0 Const: General: cooperative, healthy appearing and no acute distress Resp: Effort & Inspection: normal respiratory effort and able to speak in complete sentences Cardio: Rate: regular rate Peripheral pulses: Peripheral pulses 2+ throughout GI: Palpation (GI): Soft to palpation Skin: Lesions: no lesions Rashes: no rashes Extrem: Other: Right ankle skin intact. Mild swelling and ecchymosis. Patient is able to demonstrate limited dorsiflexion and plantarflexion due to pain. She is able to move all digits. Sensation intact. Procedures Date of Service Date of Service: 02/09/21 Progress Note: A&P Assessment and plan (1) Closed trimalleolar fracture of ankle: Status: Acute Assessment and Plan: Pain management Surgical planning for ORIF right ankle once swelling allows Keep splint clean, dry, and intact Elevate on 3 pillows Fall Risk Details Current Medications: Current Medications Acetaminophen (Acetaminophen 325 Mg Tablet) 650 mg PO Q6H PRN PRN Reason: Pain, Mild (Pain Scale 1-3) Alprazolam (Alprazolam 0.25 Mg Tablet) 0.25 mg PO DAILY PRN PRN Reason: anxiety Amlodipine Besylate (Amlodipine Besylate 2.5 Mg Tablet) 2.5 mg PO DAILY [facility]; Protocol Atorvastatin Calcium (Atorvastatin Calcium 10 Mg Tablet) 10 mg PO DAILY [facility] Last Admin: 02/08/21 14:26 Dose: 10 mg Documented by: Docusate Sodium (Docusate Sodium 100 Mg Capsule) 100 mg PO BID [facility] Last Admin: 02/08/21 21:57 Dose: 100 mg Documented by: Folic Acid (Folic Acid 1 Mg Tablet) 1 mg PO DAILY [facility] Hydromorphone HCl (Hydromorphone Hcl 0.5 Mg/0.5 Ml Syringe) 0.25 mg IVPUSH Q4H PRN; Protocol PRN Reason: Pain, Severe (Pain Scale 7-10) Latanoprost (Latanoprost 0.005 % Ophth Vivien 2.5 Ml Drops) 1 drop EYE-RIGHT BEDTIME [facility] Last Admin: 02/08/21 21:57 Dose: 1 drop Documented by: Levothyroxine Sodium (Levothyroxine Sodium 100 Mcg Tablet) 100 mcg PO DAILY@0600 [facility] Last Admin: 02/09/21 05:43 Dose: 100 mcg Documented by: Metoprolol Succinate (Metoprolol Succinate Er 50 Mg Tab.Er.24h) 50 mg PO DAILY [facility]; Protocol Last Admin: 02/08/21 14:25 Dose: 50 mg Documented by: Omeprazole (Omeprazole 20 Mg Capsule.Dr) 20 mg PO DAILY@0630 [facility] Last Admin: 02/09/21 05:43 Dose: 20 mg Documented by: Oxycodone HCl (Oxycodone Hcl Immed Release 5 Mg Tablet) 5 mg PO Q4H PRN PRN Reason: Pain, Moderate (Pain Scale 4-6 Pharmacy Consult (Consult Rx Perform Med Rec) 1 each MISCELLANE ONCE PRN PRN Reason: Consult order Sodium Chloride (0.9 % Sodium Chloride Flush 3 Ml Syringe) 3 ml IVFLUSH QSHIFT [facility] Last Admin: 02/08/21 21:57 Dose: 3 ml Documented by: Thiamine HCl (Thiamine Hcl 100 Mg Tablet) 100 mg PO DAILY [facility] Valsartan (Valsartan 320 Mg Tablet) 320 mg PO DAILY [facility]; Protocol Last Admin: 02/08/21 14:32 Dose: 320 mg Documented by: Time Spent With Patient Time: Total time spent is greater than 50% in coordination of care (as documented) at patient's floor/unit and/or counseling patient: Time with patient: less than 15 minutes Quality Stroke Does the patient have a stroke diagnosis?: No VTE Prior VTE?: No VTE Risk Level:: Surgical - very high VTE Device Contraindication: N/A - Device Ordered VTE Drug Contraindication: N/A - Med Ordered
[2021-02-09] MEDS: Valsartan 320 MG TABLET PO (09:21)
[2021-02-09] MEDS: Metoprolol Succinate ER 50 MG TAB.ER.24H PO (09:22)
[2021-02-09] MEDS: Docusate Sodium 100 MG CAPSULE PO ×2 (09:22→20:04)
[2021-02-09] MEDS: Atorvastatin Calcium 10 MG TABLET PO (09:22)
[2021-02-09] MEDS: Acetaminophen 325 MG TABLET 650 MG PO (09:23)
[2021-02-09] MEDS: Folic Acid 1 MG TABLET PO (09:25)
[2021-02-09] MEDS: Thiamine HCL 100 MG TABLET PO (09:25)
[2021-02-09] MEDS: amLODIPine Besylate 2.5 MG TABLET PO ×2 (09:27→15:49)
[2021-02-09] MEDS: 0.9 % Sodium Chloride Flush 3 ML SYRINGE IVFLUSH ×3 (09:32→23:57)
--- NOTE | 2021-02-09 09:38 | HO.PM.IMPN ---
Subjective Subjective Date of Service: 02/09/21 Interval History: htn Review of Systems Denies any new complaint of chest pain or shortness of breath or abdominal pain or fever or chills or nausea or vomiting Denies any cough Denies any weakness or numbness. slightly anxious about procedure. Physical Exam Vital Signs: Vital Signs: Last Vital Signs Temp 97.6 F 02/09/21 07:14 Pulse 73 02/09/21 07:14 Resp 18 02/09/21 07:14 BP 185/82 H 02/09/21 07:14 Pulse Ox 93 02/09/21 07:14 Body Mass Index 25.0 Appearance: Alert.? Oriented X3.? not in distress.? Eyes: Pupils equal, round and reactive to light.? Sclera nonicteric.? ENT: Pharynx normal.? Moist mucous membranes. cvs: rrr, [id number] , no murmur res: clear to auscultation ,no rhonchii or wheezing abd: no rebound or guarding ,nt, bs present. ext pulses present , no cyanosis oe edema , right foot wrapped with dressing , able to wiggle toes. neuro: axo3 , nonfocal. Objective Data Active Medications Acetaminophen (Acetaminophen 325 Mg Tablet) 650 mg PO Q6H PRN PRN Reason: Pain, Mild (Pain Scale 1-3) Last Admin: 02/09/21 09:23 Dose: 650 mg Documented by: DIAN Alprazolam (Alprazolam 0.25 Mg Tablet) 0.25 mg PO DAILY PRN PRN Reason: anxiety Amlodipine Besylate (Amlodipine Besylate 2.5 Mg Tablet) 2.5 mg PO DAILY [facility]; Protocol Last Admin: 02/09/21 09:27 Dose: 2.5 mg Documented by: DIAN Atorvastatin Calcium (Atorvastatin Calcium 10 Mg Tablet) 10 mg PO DAILY [facility] Last Admin: 02/09/21 09:22 Dose: 10 mg Documented by: DIAN Docusate Sodium (Docusate Sodium 100 Mg Capsule) 100 mg PO BID [facility] Last Admin: 02/09/21 09:22 Dose: 100 mg Documented by: DIAN Folic Acid (Folic Acid 1 Mg Tablet) 1 mg PO DAILY [facility] Last Admin: 02/09/21 09:25 Dose: 1 mg Documented by: DIAN Hydromorphone HCl (Hydromorphone Hcl 0.5 Mg/0.5 Ml Syringe) 0.25 mg IVPUSH Q4H PRN; Protocol PRN Reason: Pain, Severe (Pain Scale 7-10) Latanoprost (Latanoprost 0.005 % Ophth Vivien 2.5 Ml Drops) 1 drop EYE-RIGHT BEDTIME [facility] Last Admin: 02/08/21 21:57 Dose: 1 drop Documented by: JOSEPH Levothyroxine Sodium (Levothyroxine Sodium 100 Mcg Tablet) 100 mcg PO DAILY@0600 [facility] Last Admin: 02/09/21 05:43 Dose: 100 mcg Documented by: JOSEPH Metoprolol Succinate (Metoprolol Succinate Er 50 Mg Tab.Er.24h) 50 mg PO DAILY [facility]; Protocol Last Admin: 02/09/21 09:22 Dose: 50 mg Documented by: DIAN Omeprazole (Omeprazole 20 Mg Capsule.Dr) 20 mg PO DAILY@0630 [facility] Last Admin: 02/09/21 05:43 Dose: 20 mg Documented by: JOSEPH Oxycodone HCl (Oxycodone Hcl Immed Release 5 Mg Tablet) 5 mg PO Q4H PRN PRN Reason: Pain, Moderate (Pain Scale 4-6 Pharmacy Consult (Consult Rx Perform Med Rec) 1 each MISCELLANE ONCE PRN PRN Reason: Consult order Sodium Chloride (0.9 % Sodium Chloride Flush 3 Ml Syringe) 3 ml IVFLUSH QSHIFT [facility] Last Admin: 02/09/21 09:32 Dose: 3 ml Documented by: DIAN Thiamine HCl (Thiamine Hcl 100 Mg Tablet) 100 mg PO DAILY [facility] Last Admin: 02/09/21 09:25 Dose: 100 mg Documented by: DIAN Valsartan (Valsartan 320 Mg Tablet) 320 mg PO DAILY [facility]; Protocol Last Admin: 02/09/21 09:21 Dose: 320 mg Documented by: DIAN Labs CBC & Chem 7: 02/09/21 05:25 02/09/21 05:25 Labs: Laboratory Results - last 24 hr 02/08/21 02/08/21 02/09/21 00:48 11:59 05:25 MCV 94.5 MCH 32.3 MCHC 34.2 RDW 12.0 Plt Count 187 MPV 10.9 Immature Gran % (Auto) 0.1 Neut % (Auto) 71.5 Lymph % (Auto) 16.6 L Nye % (Auto) 10.0 Eos % (Auto) 1.7 Baso % (Auto) 0.1 Lymph # (Auto) 1.3 Nye # (Auto) 0.8 Eos # (Auto) 0.1 Baso # (Auto) 0.0 Abs Immat Gran (auto) 0.01 Absolute Neuts (auto) 5.4 Absolute Nucleated RBC 0.000 Nucleated RBC % (auto) 0.0 Anion Gap Estim Creat Clear Calc Estimated GFR Fasting Glucose Estimat Average Glucose 103 Hemoglobin A1c % 5.2 Calcium COVID-19 ([facility]) Negative COVID-19 Clin Com See Note 02/09/21 05:25 MCV MCH MCHC RDW Plt Count MPV Immature Gran % (Auto) Neut % (Auto) Lymph % (Auto) Nye % (Auto) Eos % (Auto) Baso % (Auto) Lymph # (Auto) Nye # (Auto) Eos # (Auto) Baso # (Auto) Abs Immat Gran (auto) Absolute Neuts (auto) Absolute Nucleated RBC Nucleated RBC % (auto) Anion Gap 15 Estim Creat Clear Calc 58.1 Estimated GFR > 60 Fasting Glucose 109 H Estimat Average Glucose Hemoglobin A1c % Calcium 9.3 COVID-19 ([facility]) COVID-19 Clin Com Assessment and Plan (1) Hypothyroid: Status: Acute Assessment and Plan: 85-year-old female with past medical history of hypertension, supplement-came to the hospital because of fall and foot fracture. 1. foot Fx: Pain mangement with oxycodone and morphine bowel regimen further management as per surgery 2. HTn uncontrolled -multifactorial , may be pain/stress also contributing:continue metoprolol and valsartan, will add small dose amlodipine. 3.Graves disease status post thyroidectomy :on levothyroxine . 4. Hlp: continue statin. 5. hx o alcohol use : add thiamine folic acid. [facility]. Quality Stroke Does the patient have a stroke diagnosis?: No VTE Prior VTE?: No VTE Risk Level:: Surgical - very high VTE Device Contraindication: N/A - Device Ordered VTE Drug Contraindication: N/A - Med Ordered
[2021-02-09] MEDS: Enoxaparin Sodium 40 MG/0.4 ML SYRINGE SUBCUT (12:31)
--- NOTE | 2021-02-09 13:03 | MHC.CM.PN ---
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 PT REPORTS SHE RECENTLY CHANGED HER HCP HER HAS DEMENTIA IMM DELIVERED PT IS AWARE SHE WILL LIKELY NEED STR PT [facility]
[2021-02-09] MEDS: Latanoprost 0.005 % Ophth Sol 2.5 ML DROPS 1 DROP EYE-RIGHT (21:44)
[2021-02-10] VITALS (9 sets, daily range): BP systolic 136–188; BP diastolic 64–90; PULSE 70–89; RESP 15–20; TEMP 36.2–37.4; O2SAT 93–96
[2021-02-10] MEDS: Omeprazole 20 MG CAPSULE.DR PO (06:33)
[2021-02-10] MEDS: Levothyroxine Sodium 100 MCG TABLET PO (06:33)
[2021-02-10 06:40] LABS: MANUAL DIFF FLAG NO
[2021-02-10 06:57] LABS: Basophils Percent Auto 0.3 % (0-2); Eosinophils Absolute Auto 0.1 X10*3/uL (0.0-0.4); Eosinophils Percent Auto 1.7 % (0-4); Hematocrit 33.1 % (37.0-47.0); Hemoglobin 11.1 g/dl (12.0-16.0); Imm Gran Abs Auto 0.02 X10*3/uL (0.00-0.03); Imm Gran Pct Auto 0.3 % (0.0-0.4); Lymphocytes Absolute Auto 1.3 X10*3/uL (1.2-4.9); Lymphocytes Percent Auto 19.1 % (20-40); Mean Corpuscular HGB Conc 33.5 g/dl (31.0-35.0); Mean Corpuscular Volume 92.5 fL (80.0-98.0); Mean Platelet Volume 11.2 fL (9.4-12.3); Monocytes Absolute Auto 0.8 X10*3/uL (0.1-1.2); Monocytes Percent Auto 11.5 % (2-11); Neutrophils Absolute Auto 4.4 x10*3/uL (2.0-8.3); Neutrophils Percent Auto 67.1 % (45-73); Platelet Count 191 X10*3/uL (160-400); Red Blood Count 3.58 X10*6/uL (4.20-5.50); Red Cell Distribution Width 11.6 % (11.0-16.0); White Blood Count 6.6 X10*3/uL (4.8-10.8)
[2021-02-10] MEDS: Thiamine HCL 100 MG TABLET PO (07:32)
[2021-02-10] MEDS: Valsartan 320 MG TABLET PO (07:32)
[2021-02-10] MEDS: NIFEdipine ER 30 MG TAB.ER.24 60 MG PO (07:32)
[2021-02-10] MEDS: Atorvastatin Calcium 10 MG TABLET PO (07:33)
[2021-02-10] MEDS: Metoprolol Succinate ER 50 MG TAB.ER.24H PO (07:33)
[2021-02-10] MEDS: 0.9 % Sodium Chloride Flush 3 ML SYRINGE IVFLUSH ×3 (07:33→22:41)
[2021-02-10 07:34] LABS: Anion Gap 12 (12-20); Blood Urea Nitrogen 12 mg/dL (9-16); Carbon Dioxide 30 mmol/L (22-29); Chloride 94 mmol/L (96-108); Creatinine Clr Calc Pharmacy 63.9; Estimated Glomerular Filt Rate > 60; Glucose Fasting 98 mg/dL (60-99); Sodium 132 mmol/L (135-145)
[2021-02-10] MEDS: Folic Acid 1 MG TABLET PO (07:34)
--- NOTE | 2021-02-10 08:16 | P.PNOP_ITS ---
Subjective Subjective Date of Service: 02/10/21 Interval history: Patient is resting comfortably in bed. Patient reports that her pain is tolerable. No additional complaints. Physical Exam Vital Signs: Vital Signs: Last Vital Signs Temp 98.6 F 02/10/21 07:08 Pulse 70 02/10/21 07:33 Resp 18 02/10/21 07:08 BP 188/90 H 02/10/21 07:33 Pulse Ox 93 02/10/21 07:08 Body Mass Index 25.0 Const: General: cooperative, healthy appearing and no acute distress Resp: Effort & Inspection: normal respiratory effort and able to speak in complete sentences Cardio: Rate: regular rate Peripheral pulses: Peripheral pulses 2+ throughout GI: Palpation (GI): Soft to palpation Skin: Lesions: no lesions Rashes: no rashes Extrem: Other: Right ankle skin intact. Mild swelling and ecchymosis. Patient is able to demonstrate limited dorsiflexion and plantarflexion due to pain. She is able to move all digits. Sensation intact. Procedures Date of Service Date of Service: 02/10/21 Progress Note: A&P Assessment and plan (1) Closed trimalleolar fracture of ankle: Status: Acute Assessment and Plan: Pain management Surgical planning for ORIF right ankle once swelling allows - Likely Wednesday and patient will be NPO after midnight tonight Keep splint clean, dry, and intact Elevate on 3 pillows Fall Risk Details Current Medications: Current Medications Acetaminophen (Acetaminophen 325 Mg Tablet) 650 mg PO Q6H PRN PRN Reason: Pain, Mild (Pain Scale 1-3) Last Admin: 02/09/21 09:23 Dose: 650 mg Documented by: Alprazolam (Alprazolam 0.25 Mg Tablet) 0.25 mg PO DAILY PRN PRN Reason: anxiety Atorvastatin Calcium (Atorvastatin Calcium 10 Mg Tablet) 10 mg PO DAILY [facility] Last Admin: 02/10/21 07:33 Dose: 10 mg Documented by: Docusate Sodium (Docusate Sodium 100 Mg Capsule) 100 mg PO BID [facility] Last Admin: 02/10/21 07:33 Dose: Not Given Documented by: Enoxaparin Sodium (Enoxaparin Sodium 40 Mg/0.4 Ml Syringe) 40 mg SUBCUT Q24H [facility] Stop: 02/18/21 00:00 Last Admin: 02/09/21 12:31 Dose: 40 mg Documented by: Folic Acid (Folic Acid 1 Mg Tablet) 1 mg PO DAILY [facility] Last Admin: 02/10/21 07:34 Dose: 1 mg Documented by: Hydralazine HCl (Hydralazine Hcl 20 Mg/Ml Vial) 5 mg IVPUSH Q6H PRN PRN Reason: SBP > 160 Hydromorphone HCl (Hydromorphone Hcl 0.5 Mg/0.5 Ml Syringe) 0.25 mg IVPUSH Q4H PRN; Protocol PRN Reason: Pain, Severe (Pain Scale 7-10) Latanoprost (Latanoprost 0.005 % Ophth Vivien 2.5 Ml Drops) 1 drop EYE-RIGHT BEDTIME [facility] Last Admin: 02/09/21 21:44 Dose: 1 drop Documented by: Levothyroxine Sodium (Levothyroxine Sodium 100 Mcg Tablet) 100 mcg PO DAILY@0600 [facility] Last Admin: 02/10/21 06:33 Dose: 100 mcg Documented by: Metoprolol Succinate (Metoprolol Succinate Er 50 Mg Tab.Er.24h) 50 mg PO DAILY [facility]; Protocol Last Admin: 02/10/21 07:33 Dose: 50 mg Documented by: Nifedipine (Nifedipine Er 30 Mg Tab.Er.24) 60 mg PO DAILY [facility]; Protocol Last Admin: 02/10/21 07:32 Dose: 60 mg Documented by: Omeprazole (Omeprazole 20 Mg Capsule.Dr) 20 mg PO DAILY@0630 [facility] Last Admin: 02/10/21 06:33 Dose: 20 mg Documented by: Oxycodone HCl (Oxycodone Hcl Immed Release 5 Mg Tablet) 5 mg PO Q4H PRN PRN Reason: Pain, Moderate (Pain Scale 4-6 Pharmacy Consult (Consult Rx Perform Med Rec) 1 each MISCELLANE ONCE PRN PRN Reason: Consult order Sodium Chloride (0.9 % Sodium Chloride Flush 3 Ml Syringe) 3 ml IVFLUSH QSHIFT [facility] Last Admin: 02/10/21 07:33 Dose: 3 ml Documented by: Thiamine HCl (Thiamine Hcl 100 Mg Tablet) 100 mg PO DAILY [facility] Last Admin: 02/10/21 07:32 Dose: 100 mg Documented by: Valsartan (Valsartan 320 Mg Tablet) 320 mg PO DAILY [facility]; Protocol Last Admin: 02/10/21 07:32 Dose: 320 mg Documented by: Time Spent With Patient Time: Total time spent is greater than 50% in coordination of care (as documented) at patient's floor/unit and/or counseling patient: Time with patient: less than 15 minutes Quality Stroke Does the patient have a stroke diagnosis?: No VTE Prior VTE?: No VTE Risk Level:: Surgical - very high VTE Device Contraindication: N/A - Device Ordered VTE Drug Contraindication: N/A - Med Ordered
--- NOTE | 2021-02-10 11:23 | MHC.CM.PN ---
Per ROUNDS discussion, Patient is not yet medically cleared for dc (Uncontrolled HTN). STR/SNF is the goal for dc and CM will follow for possible need to adjust the dc plan.
[2021-02-10] MEDS: Enoxaparin Sodium 40 MG/0.4 ML SYRINGE SUBCUT (11:44)
--- NOTE | 2021-02-10 12:18 | HO.PM.IMPN ---
Subjective Subjective Date of Service: 02/10/21 Interval History: htn Review of Systems Denies any new complaint of chest pain or shortness of breath or abdominal pain or fever or chills or nausea or weakness or numbness. less anxious today Physical Exam Vital Signs: Vital Signs: Last Vital Signs Temp 97.9 F 02/10/21 10:55 Pulse 76 02/10/21 10:55 Resp 15 02/10/21 10:55 BP 176/77 H 02/10/21 10:55 Pulse Ox 93 02/10/21 10:55 Body Mass Index 25.0 Appearance: Alert.? Oriented X3.? not in distress.? Eyes: Pupils equal, round and reactive to light.? Sclera nonicteric.? ENT: Pharynx normal.? Moist mucous membranes. cvs: rrr, [id number] , no murmur res: clear to auscultation ,no rhonchii or wheezing abd: no rebound or guarding ,nt, bs present. ext pulses present , no cyanosis oe edema , right foot wrapped with dressing , able to wiggle toes. neuro: axo3 , nonfocal. Objective Data Active Medications Acetaminophen (Acetaminophen 325 Mg Tablet) 650 mg PO Q6H PRN PRN Reason: Pain, Mild (Pain Scale 1-3) Last Admin: 02/09/21 09:23 Dose: 650 mg Documented by: DIAN Alprazolam (Alprazolam 0.25 Mg Tablet) 0.25 mg PO DAILY PRN PRN Reason: anxiety Atorvastatin Calcium (Atorvastatin Calcium 10 Mg Tablet) 10 mg PO DAILY [facility] Last Admin: 02/10/21 07:33 Dose: 10 mg Documented by: CHARLOTTE Docusate Sodium (Docusate Sodium 100 Mg Capsule) 100 mg PO BID [facility] Last Admin: 02/10/21 07:33 Dose: Not Given Documented by: CHARLOTTE Non-Admin Reason: Patient Refused Enoxaparin Sodium (Enoxaparin Sodium 40 Mg/0.4 Ml Syringe) 40 mg SUBCUT Q24H [facility] Stop: 02/18/21 00:00 Last Admin: 02/10/21 11:44 Dose: 40 mg Documented by: CHARLOTTE Folic Acid (Folic Acid 1 Mg Tablet) 1 mg PO DAILY [facility] Last Admin: 02/10/21 07:34 Dose: 1 mg Documented by: CHARLOTTE Hydralazine HCl (Hydralazine Hcl 20 Mg/Ml Vial) 5 mg IVPUSH Q6H PRN PRN Reason: SBP > 160 Hydromorphone HCl (Hydromorphone Hcl 0.5 Mg/0.5 Ml Syringe) 0.25 mg IVPUSH Q4H PRN; Protocol PRN Reason: Pain, Severe (Pain Scale 7-10) Cefazolin Sodium/Dextrose (Ancef) 2 gm in 50 mls @ 100 mls/hr IV PREOP ONE Stop: 02/11/21 08:44 Latanoprost (Latanoprost 0.005 % Ophth Vivien 2.5 Ml Drops) 1 drop EYE-RIGHT BEDTIME [facility] Last Admin: 02/09/21 21:44 Dose: 1 drop Documented by: CARLOS Levothyroxine Sodium (Levothyroxine Sodium 100 Mcg Tablet) 100 mcg PO DAILY@0600 [facility] Last Admin: 02/10/21 06:33 Dose: 100 mcg Documented by: JEANNE Metoprolol Succinate (Metoprolol Succinate Er 50 Mg Tab.Er.24h) 50 mg PO DAILY [facility]; Protocol Last Admin: 02/10/21 07:33 Dose: 50 mg Documented by: CHARLOTTE Nifedipine (Nifedipine Er 30 Mg Tab.Er.24) 60 mg PO DAILY [facility]; Protocol Last Admin: 02/10/21 07:32 Dose: 60 mg Documented by: CHARLOTTE Omeprazole (Omeprazole 20 Mg Capsule.Dr) 20 mg PO DAILY@0630 [facility] Last Admin: 02/10/21 06:33 Dose: 20 mg Documented by: JEANNE Oxycodone HCl (Oxycodone Hcl Immed Release 5 Mg Tablet) 5 mg PO Q4H PRN PRN Reason: Pain, Moderate (Pain Scale 4-6 Pharmacy Consult (Consult Rx Perform Med Rec) 1 each MISCELLANE ONCE PRN PRN Reason: Consult order Sodium Chloride (0.9 % Sodium Chloride Flush 3 Ml Syringe) 3 ml IVFLUSH QSHIFT [facility] Last Admin: 02/10/21 07:33 Dose: 3 ml Documented by: CHARLOTTE Thiamine HCl (Thiamine Hcl 100 Mg Tablet) 100 mg PO DAILY [facility] Last Admin: 02/10/21 07:32 Dose: 100 mg Documented by: CHARLOTTE Valsartan (Valsartan 320 Mg Tablet) 320 mg PO DAILY [facility]; Protocol Last Admin: 02/10/21 07:32 Dose: 320 mg Documented by: CHARLOTTE Labs CBC & Chem 7: 02/10/21 06:02 02/10/21 06:02 Labs: Laboratory Results - last 24 hr 02/10/21 02/10/21 02/10/21 06:02 06:02 09:53 MCV 92.5 MCH 31.0 MCHC 33.5 RDW 11.6 Plt Count 191 MPV 11.2 Immature Gran % (Auto) 0.3 Neut % (Auto) 67.1 Lymph % (Auto) 19.1 L [place] % (Auto) 11.5 H Eos % (Auto) 1.7 Baso % (Auto) 0.3 Lymph # (Auto) 1.3 [place] # (Auto) 0.8 Eos # (Auto) 0.1 Baso # (Auto) 0.0 Abs Immat Gran (auto) 0.02 Absolute Neuts (auto) 4.4 Absolute Nucleated RBC 0.000 Nucleated RBC % (auto) 0.0 Anion Gap 12 Estim Creat Clear Calc 63.9 Estimated GFR > 60 Fasting Glucose 98 Calcium 9.0 Blood Type B Negative Antibody Screen NEGATIVE Assessment and Plan (1) HTN (hypertension): Status: Acute (2) Hypothyroid: Status: Acute Assessment and Plan: 85-year-old female with past medical history of hypertension, supplement-came to the hospital because of fall and foot fracture. 1. foot Fx: Pain mangement with oxycodone and morphine bowel regimen further management as per surgery 2. HTn uncontrolled -multifactorial , may be pain/stress also contributing:continue metoprolol and valsartan, will add small dose amlodipine. 3.Graves disease status post thyroidectomy :on levothyroxine . 4. Hlp: continue statin. 5. hx o alcohol use : add thiamine folic acid. dvt prophylax: [facility] devices as per primaty team. Quality Stroke Does the patient have a stroke diagnosis?: No VTE Prior VTE?: No VTE Risk Level:: Surgical - very high VTE Device Contraindication: N/A - Device Ordered VTE Drug Contraindication: N/A - Med Ordered
[2021-02-10] MEDS: hydrALAZINE HCl 20 MG/ML VIAL 5 MG IVPUSH (13:44)
--- NOTE | 2021-02-10 16:51 | CONS_ITS ---
DATE OF SERVICE: 02/10/2021 REASON FOR CONSULTATION: I was called to see this patient to assist in the management of severe hypertension and hyponatremia. HISTORY OF PRESENT ILLNESS: To summarize, Licha is an 85-year-old woman with history of hypertension who follows with Dr. Estrada. She has been on valsartan and metoprolol, and she has done very well. Prior to the admission, she was watching TV and she try to stand and fell and sustained fracture of the right malleolus. At the time of admission, she was hypertensive with blood pressure of 184/94. Blood pressure has been difficult to control since admission. Serum sodium was 134, which was up to 132, and this consultation has been requested for management of hypertension. Her daughter Mirella was at bedside. Mirella tells me that Licha has a diagnosis of vasovagal syncope in the past. She is not sure if she has undergone any workup for the same. ONGOING MEDICAL PROBLEMS: Include history of hypertension, essentially normal renal function, vasovagal reaction, hyperlipidemia, history of hypothyroidism, history of Graves disease status post thyroidectomy, history of alcohol use. PAST SURGICAL HISTORY: Include thyroidectomy. HOME MEDICATIONS: Include atorvastatin, estradiol, levothyroxine 100 mcg, metoprolol, omeprazole, valsartan 320 mg. Not on any diuretics. ALLERGIES: NO KNOWN DRUG ALLERGIES. SOCIAL HISTORY: She has a history of consuming alcohol. No history of any smoking. REVIEW OF SYSTEMS: She has no headache, nausea, or vomiting. No abdominal pain, diarrhea, or constipation. No urinary symptoms. No palpitations. No unexplained sweating. All other systems were reviewed. PHYSICAL EXAMINATION: GENERAL: Licha is an 85-year-old woman. She is comfortable, not in any distress. NECK: Supple. No JVD. She has strabismus. No carotid bruits. LUNGS: Air entry equal. No rales. HEART: S1, S2 heard. No gallop or rub. ABDOMEN: Soft, nontender. Bowel sounds are heard. No bruit. EXTREMITIES: Right leg is wrapped. Left leg, no edema. VITAL SIGNS: All the blood pressure readings were reviewed. Most recent blood pressure 188/90 mmHg, pulse of 70 per minute. LABORATORY DATA: Hemoglobin 11.1, platelets 191. Sodium 132, bicarb of 30, BUN 12, creatinine 0.59. Urine studies in the past showed no protein or blood. Serum alcohol level was 105 on admission. Ankle x-ray was reviewed. IMPRESSION: 1. Severe hypertension. 2. Licha has a history of hypertension. Blood pressure is suboptimal at this time. She is on 3 medications including Diovan 320 mg, metoprolol 50 mg, and Nifedipine has been added. We will recheck the blood pressure today and optimize the blood pressure goals. Keep systolic blood pressure less than 160 mmHg today. There is a history of vasovagal phenomena. Ideally, we should check her orthostatic blood pressure change. However, due to her ankle fracture, we will hold off on this for the time being. If the blood pressure remains elevated, we will screen for secondary causes. 3. The renal function is stable and normal at baseline. 4. Hyponatremia. The pain could be a source of non-osmotic ADH release. However, she has a history of hypothyroidism; therefore, TSH should be checked to make sure she is not hypothyroid. 5. Mild alkalosis, which seems to be chronic. Given the history of hypertension and alkalosis, I will check the serum aldosterone and plasma renin activity, even though she has no documented hypokalemia. We will be happy to follow along with the team. MD MIRIAN Hoyos/MODL / [id number] MTDD
[2021-02-10] MEDS: Latanoprost 0.005 % Ophth Sol 2.5 ML DROPS 1 DROP EYE-RIGHT (22:40)
[2021-02-11] VITALS (15 sets, daily range): BP systolic 108–178; BP diastolic 55–82; PULSE 68–90; RESP 14–20; TEMP 36.1–37.2; O2SAT 92–100
[2021-02-11] MEDS: Omeprazole 20 MG CAPSULE.DR PO (05:52)
[2021-02-11] MEDS: Levothyroxine Sodium 100 MCG TABLET PO (05:52)
[2021-02-11 06:17] LABS: MANUAL DIFF FLAG NO
[2021-02-11 06:40] LABS: Basophils Percent Auto 0.2 % (0-2); Eosinophils Absolute Auto 0.1 X10*3/uL (0.0-0.4); Eosinophils Percent Auto 1.8 % (0-4); Hematocrit 33.7 % (37.0-47.0); Hemoglobin 11.5 g/dl (12.0-16.0); Imm Gran Abs Auto 0.03 X10*3/uL (0.00-0.03); Imm Gran Pct Auto 0.5 % (0.0-0.4); Lymphocytes Absolute Auto 1.1 X10*3/uL (1.2-4.9); Lymphocytes Percent Auto 17.9 % (20-40); Mean Corpuscular HGB Conc 34.1 g/dl (31.0-35.0); Mean Corpuscular Hemoglobin 31.3 pg (27.0-33.0); Mean Corpuscular Volume 91.6 fL (80.0-98.0); Mean Platelet Volume 10.7 fL (9.4-12.3); Monocytes Absolute Auto 0.8 X10*3/uL (0.1-1.2); Monocytes Percent Auto 12.4 % (2-11); Neutrophils Absolute Auto 4.1 x10*3/uL (2.0-8.3); Neutrophils Percent Auto 67.2 % (45-73); Platelet Count 192 X10*3/uL (160-400); Red Blood Count 3.68 X10*6/uL (4.20-5.50); Red Cell Distribution Width 11.7 % (11.0-16.0); White Blood Count 6.1 X10*3/uL (4.8-10.8)
[2021-02-11 06:41] LABS: Anion Gap 10 (12-20); Blood Urea Nitrogen 13 mg/dL (9-16); Calcium 9.3 mg/dL (8.4-10.2); Carbon Dioxide 29 mmol/L (22-29); Chloride 94 mmol/L (96-108); Creatinine Clr Calc Pharmacy 66.2; Estimated Glomerular Filt Rate > 60; Glucose Fasting 102 mg/dL (60-99); Sodium 129 mmol/L (135-145)
[2021-02-11 07:04] LABS: Thyroid Stimulating Hormone 3.17 uIU/mL (0.32-4.0)
[2021-02-11] MEDS: 0.9 % Sodium Chloride Flush 3 ML SYRINGE IVFLUSH ×2 (08:57→20:45)
[2021-02-11] MEDS: Valsartan 320 MG TABLET PO (08:57)
[2021-02-11] MEDS: Metoprolol Succinate ER 50 MG TAB.ER.24H PO (08:58)
[2021-02-11] MEDS: Atorvastatin Calcium 10 MG TABLET PO (08:58)
[2021-02-11] MEDS: NIFEdipine ER 30 MG TAB.ER.24 60 MG PO (08:58)
[2021-02-11] MEDS: Thiamine HCL 100 MG TABLET PO (08:58)
[2021-02-11] MEDS: Folic Acid 1 MG TABLET PO (08:58)
[2021-02-11] MEDS: Docusate Sodium 100 MG CAPSULE PO ×2 (08:58→20:45)
--- NOTE | 2021-02-11 10:09 | PM.PNNEP ---
Subjective Subjective Date of Service: 02/12/21 Interval history: Events noted Feeling better Physical Exam Vital Signs: Vital Signs: Last Vital Signs Temp 98.4 F 02/11/21 08:00 Pulse 90 02/11/21 08:58 Resp 18 02/11/21 08:00 BP 177/82 H 02/11/21 08:58 Pulse Ox 93 02/11/21 08:00 Body Mass Index 25.0 Const: General: cooperative Neck: Neck: Yes no JVD Resp: Effort & Inspection: normal respiratory effort Auscultation: clear to auscultation bilaterally Cardio: Jugular venous distension: no JVD Palpation: no palpable S3 and no palpable S4 Rate: not tachycardic GI: Inspection: Yes normal to inspection Palpation (GI): Soft to palpation Auscultation: normal bowel sounds Skin: General skin exam: no rashes or lesions noted Extrem: Right upper extremity: No no edema Objective Data Labs CBC & Chem 7: 02/12/21 06:05 02/12/21 06:05 Labs: Laboratory Results - last 24 hr 02/10/21 02/11/21 02/11/21 09:53 06:04 06:04 WBC 6.1 RBC 3.68 L Hgb 11.5 L Hct 33.7 L MCV 91.6 MCH 31.3 MCHC 34.1 RDW 11.7 Plt Count 192 MPV 10.7 Immature Gran % (Auto) 0.5 H Neut % (Auto) 67.2 Lymph % (Auto) 17.9 L [place] % (Auto) 12.4 H Eos % (Auto) 1.8 Baso % (Auto) 0.2 Lymph # (Auto) 1.1 L [place] # (Auto) 0.8 Eos # (Auto) 0.1 Baso # (Auto) 0.0 Abs Immat Gran (auto) 0.03 Absolute Neuts (auto) 4.1 Absolute Nucleated RBC 0.000 Nucleated RBC % (auto) 0.0 Sodium 129 L Potassium 4.0 Chloride 94 L Carbon Dioxide 29 Anion Gap 10 L BUN 13 Creatinine 0.57 Estim Creat Clear Calc 66.2 Estimated GFR > 60 Fasting Glucose 102 H Calcium 9.3 TSH 3.17 Antibody Screen NEGATIVE Procedures Date of Service Date of Service: 02/11/21 Assessment & Plan Assessment and plan (1) HTN (hypertension): Status: Acute Assessment and Plan: Work up in progress BP elevated but better controlled Keep current meds (2) Hyponatremia: Status: Acute Assessment and Plan: Asymptomatic Urine studies ordered - but not dose Assessment and Plan: Restrict hypotonic fluids /PO water to 1L per 24 hrs Obtain urine studies. From a renal stand point, no absolute contraindication for surgery Time Spent With Patient Time: Total time spent is greater than 50% in coordination of care (as documented) at patient's floor/unit and/or counseling patient: Progress Note: Quality Stroke Does the patient have a stroke diagnosis?: No
--- NOTE | 2021-02-11 13:12 | HO.ANESPROP2 ---
[facility] Active Problems Active Problems: All Active Problems (Updated 02/11/21 @ 10:11 by Mario Gan MD) Hyponatremia (Acute) HTN (hypertension) (Acute) Hypothyroid (Acute) Closed trimalleolar fracture of ankle (Acute) Fall (Acute) Alcohol intoxication (Acute) Past Medical History Medical History High cholesterol HTN (hypertension) Vaso-vagal reaction Patient : No Family History Family history of problems with anesthesia: No Surgical History History of Problems with Anesthesia: No Social History Social History Household Members: Spouse Housing: House Do you presently have visiting nurse or other home services: No Alcohol intake: current Alcohol intake frequency: a few times a week Patient Tobacco Use Status: Never used Tobacco Use of substances other than those prescribed or required for medical reasons: No Currently Displaying Signs/Symptoms of Drug Intoxication Withdrawal: No Have you been hit, kicked, punched, or otherwise hurt by someone within the past year? If so, by whom?: No Do you feel safe in your current relationship?: No Is there a partner from a previous relationship who is making you feel unsafe now?: No Are you made to feel afraid or neglected: No Spiritual Healthcare Practices: faith Are you DNR?: No Advance Directives: No Advance Directives Information Provided: No Advance Directives on File: Yes Do you have thoughts of harming others: None Do you have a plan to hurt others: No Plan Recently lost weight without trying: No How much weight loss: 2-13 pounds Eating poorly because of decreased appetite: No Nutrition screen score: 1 Nutrition Risks: No Nutritional Risk Patient : No : No Poor oral hygiene: No Current occupational status: retired Meds Allergies Allergy/AdvReac Type Severity Reaction Status Date / Time No Known Allergies Allergy Unverified 12/21/19 15:56 [No Known Allergies*] Active Medications: Current Medications Acetaminophen (Acetaminophen 325 Mg Tablet) 650 mg PO Q6H PRN PRN Reason: Pain, Mild (Pain Scale 1-3) Last Admin: 02/09/21 09:23 Dose: 650 mg Documented by: Alprazolam (Alprazolam 0.25 Mg Tablet) 0.25 mg PO DAILY PRN PRN Reason: anxiety Atorvastatin Calcium (Atorvastatin Calcium 10 Mg Tablet) 10 mg PO DAILY [facility] Last Admin: 02/11/21 08:58 Dose: 10 mg Documented by: Docusate Sodium (Docusate Sodium 100 Mg Capsule) 100 mg PO BID [facility] Last Admin: 02/11/21 08:58 Dose: 100 mg Documented by: Enoxaparin Sodium (Enoxaparin Sodium 40 Mg/0.4 Ml Syringe) 40 mg SUBCUT Q24H [facility] Stop: 02/18/21 00:00 Last Admin: 02/10/21 11:44 Dose: 40 mg Documented by: Folic Acid (Folic Acid 1 Mg Tablet) 1 mg PO DAILY [facility] Last Admin: 02/11/21 08:58 Dose: 1 mg Documented by: Hydralazine HCl (Hydralazine Hcl 20 Mg/Ml Vial) 5 mg IVPUSH Q6H PRN PRN Reason: SBP > 160 Last Admin: 02/10/21 13:44 Dose: 5 mg Documented by: Hydromorphone HCl (Hydromorphone Hcl 0.5 Mg/0.5 Ml Syringe) 0.25 mg IVPUSH Q4H PRN; Protocol PRN Reason: Pain, Severe (Pain Scale 7-10) Latanoprost (Latanoprost 0.005 % Ophth Vivien 2.5 Ml Drops) 1 drop EYE-RIGHT BEDTIME [facility] Last Admin: 02/10/21 22:40 Dose: 1 drop Documented by: Levothyroxine Sodium (Levothyroxine Sodium 100 Mcg Tablet) 100 mcg PO DAILY@0600 [facility] Last Admin: 02/11/21 05:52 Dose: 100 mcg Documented by: Metoprolol Succinate (Metoprolol Succinate Er 50 Mg Tab.Er.24h) 50 mg PO DAILY [facility]; Protocol Last Admin: 02/11/21 08:58 Dose: 50 mg Documented by: Nifedipine (Nifedipine Er 30 Mg Tab.Er.24) 60 mg PO DAILY [facility]; Protocol Last Admin: 02/11/21 08:58 Dose: 60 mg Documented by: Omeprazole (Omeprazole 20 Mg Capsule.) 20 mg PO DAILY@0630 [facility] Last Admin: 02/11/21 05:52 Dose: 20 mg Documented by: Oxycodone HCl (Oxycodone Hcl Immed Release 5 Mg Tablet) 5 mg PO Q4H PRN PRN Reason: Pain, Moderate (Pain Scale 4-6 Pharmacy Consult (Consult Rx Perform Med Rec) 1 each MISCELLANE ONCE PRN PRN Reason: Consult order Sodium Chloride (0.9 % Sodium Chloride Flush 3 Ml Syringe) 3 ml IVFLUSH QSHIFT [facility] Last Admin: 02/11/21 08:57 Dose: 3 ml Documented by: Thiamine HCl (Thiamine Hcl 100 Mg Tablet) 100 mg PO DAILY [facility] Last Admin: 02/11/21 08:58 Dose: 100 mg Documented by: Valsartan (Valsartan 320 Mg Tablet) 320 mg PO DAILY [facility]; Protocol Last Admin: 02/11/21 08:57 Dose: 320 mg Documented by: Home Medications Medication Instructions Recorded Confirmed Last Taken Type atorvastatin 10 mg tablet 10 mg PO DAILY 02/08/21 02/08/21 02/07/21 History estradiol 1 g VAGINAL SUWE 02/08/21 02/08/21 02/05/21 History latanoprost 0.005 % eye drops 1 drp OPHTHALMIC-RIGHT BEDTIME 02/08/21 02/08/21 02/07/21 History levothyroxine 100 mcg tablet 100 mcg PO DAILY 02/08/21 02/08/21 02/07/21 History metoprolol succinate 50 mg 50 mg PO DAILY 02/08/21 02/08/21 02/07/21 History tablet,extended release 24 hr omeprazole 20 mg capsule,delayed 1 cap PO DAILY 02/08/21 02/08/21 02/07/21 History release valsartan 320 mg tablet 320 mg PO DAILY 02/08/21 02/08/21 02/07/21 History Exam Exam Date and Time: February 11, 2021 1312 Height,Weight and Vital Signs: Height 5 ft 4 in Weight 66 kg Last Vital Signs Temp 97.0 F 02/11/21 12:47 Pulse 87 02/11/21 12:47 Resp 16 02/11/21 12:47 BP 168/72 H 02/11/21 12:47 Pulse Ox 97 02/11/21 12:47 Pertinent Lab Results Pertinent Lab Results: Laboratory Tests 02/08/21 02/08/21 02/08/21 00:48 00:48 00:48 WBC 9.3 RBC 3.78 L Hgb 12.0 Hct 35.7 L MCV 94.4 MCH 31.7 MCHC 33.6 RDW 11.9 Plt Count 226 MPV 10.5 Immature Gran % (Auto) 0.2 Neut % (Auto) 73.3 H Lymph % (Auto) 19.7 L Hart % (Auto) 5.7 Eos % (Auto) 0.9 Baso % (Auto) 0.2 Lymph # (Auto) 1.8 Hart # (Auto) 0.5 Eos # (Auto) 0.1 Baso # (Auto) 0.0 Abs Immat Gran (auto) 0.02 Absolute Neuts (auto) 6.8 Absolute Nucleated RBC 0.000 Nucleated RBC % (auto) 0.0 PT 10.5 INR 0.9 APTT 29.3 Sodium 136 Potassium 4.3 Chloride 99 Carbon Dioxide 25 Anion Gap 16 BUN 14 Creatinine 0.75 Estim Creat Clear Calc 46.5 Estimated GFR > 60 Random Glucose 121 H Fasting Glucose Estimat Average Glucose Hemoglobin A1c % Calcium 9.8 Total Bilirubin 0.8 AST 28 ALT 31 Alkaline Phosphatase 96 Troponin I High Sens Total Protein 6.8 Albumin 4.2 TSH Ethyl Alcohol COVID-19 ([facility]ARSHAL) [employer] Blood Type Antibody Screen 02/08/21 02/08/21 02/08/21 00:48 00:48 01:03 WBC RBC Hgb Hct MCV MCH MCHC RDW Plt Count MPV Immature Gran % (Auto) Neut % (Auto) Lymph % (Auto) Hart % (Auto) Eos % (Auto) Baso % (Auto) Lymph # (Auto) Hart # (Auto) Eos # (Auto) Baso # (Auto) Abs Immat Gran (auto) Absolute Neuts (auto) Absolute Nucleated RBC Nucleated RBC % (auto) PT INR APTT Sodium Potassium Chloride Carbon Dioxide Anion Gap BUN Creatinine Estim Creat Clear Calc Estimated GFR Random Glucose Fasting Glucose Estimat Average Glucose 103 Hemoglobin A1c % 5.2 Calcium Total Bilirubin AST ALT Alkaline Phosphatase Troponin I High Sens 4.1 Total Protein Albumin TSH Ethyl Alcohol 105 COVID-19 ([facility]ARSHAL) [employer] Blood Type Antibody Screen 02/08/21 02/09/21 02/09/21 11:59 05:25 05:25 WBC 7.6 RBC 3.44 L Hgb 11.1 L Hct 32.5 L MCV 94.5 MCH 32.3 MCHC 34.2 RDW 12.0 Plt Count 187 MPV 10.9 Immature Gran % (Auto) 0.1 Neut % (Auto) 71.5 Lymph % (Auto) 16.6 L Hart % (Auto) 10.0 Eos % (Auto) 1.7 Baso % (Auto) 0.1 Lymph # (Auto) 1.3 Hart # (Auto) 0.8 Eos # (Auto) 0.1 Baso # (Auto) 0.0 Abs Immat Gran (auto) 0.01 Absolute Neuts (auto) 5.4 Absolute Nucleated RBC 0.000 Nucleated RBC % (auto) 0.0 PT INR APTT Sodium 134 L Potassium 4.0 Chloride 96 Carbon Dioxide 27 Anion Gap 15 BUN 13 Creatinine 0.65 Estim Creat Clear Calc 58.1 Estimated GFR > 60 Random Glucose Fasting Glucose 109 H Estimat Average Glucose Hemoglobin A1c % Calcium 9.3 Total Bilirubin AST ALT Alkaline Phosphatase Troponin I High Sens Total Protein Albumin TSH Ethyl Alcohol COVID-19 ([facility]ARSHAL) Negative [employer] See Note Blood Type Antibody Screen 02/10/21 02/10/21 02/10/21 06:02 06:02 09:53 WBC 6.6 RBC 3.58 L Hgb 11.1 L Hct 33.1 L MCV 92.5 MCH 31.0 MCHC 33.5 RDW 11.6 Plt Count 191 MPV 11.2 Immature Gran % (Auto) 0.3 Neut % (Auto) 67.1 Lymph % (Auto) 19.1 L Hart % (Auto) 11.5 H Eos % (Auto) 1.7 Baso % (Auto) 0.3 Lymph # (Auto) 1.3 Hart # (Auto) 0.8 Eos # (Auto) 0.1 Baso # (Auto) 0.0 Abs Immat Gran (auto) 0.02 Absolute Neuts (auto) 4.4 Absolute Nucleated RBC 0.000 Nucleated RBC % (auto) 0.0 PT INR APTT Sodium 132 L Potassium 4.0 Chloride 94 L Carbon Dioxide 30 H Anion Gap 12 BUN 12 Creatinine 0.59 Estim Creat Clear Calc 63.9 Estimated GFR > 60 Random Glucose Fasting Glucose 98 Estimat Average Glucose Hemoglobin A1c % Calcium 9.0 Total Bilirubin AST ALT Alkaline Phosphatase Troponin I High Sens Total Protein Albumin TSH Ethyl Alcohol COVID-19 ([facility]ARSHAL) [employer] Blood Type B Negative Antibody Screen NEGATIVE 02/11/21 02/11/21 06:04 06:04 WBC 6.1 RBC 3.68 L Hgb 11.5 L Hct 33.7 L MCV 91.6 MCH 31.3 MCHC 34.1 RDW 11.7 Plt Count 192 MPV 10.7 Immature Gran % (Auto) 0.5 H Neut % (Auto) 67.2 Lymph % (Auto) 17.9 L Hart % (Auto) 12.4 H Eos % (Auto) 1.8 Baso % (Auto) 0.2 Lymph # (Auto) 1.1 L Hart # (Auto) 0.8 Eos # (Auto) 0.1 Baso # (Auto) 0.0 Abs Immat Gran (auto) 0.03 Absolute Neuts (auto) 4.1 Absolute Nucleated RBC 0.000 Nucleated RBC % (auto) 0.0 PT INR APTT Sodium 129 L Potassium 4.0 Chloride 94 L Carbon Dioxide 29 Anion Gap 10 L BUN 13 Creatinine 0.57 Estim Creat Clear Calc 66.2 Estimated GFR > 60 Random Glucose Fasting Glucose 102 H Estimat Average Glucose Hemoglobin A1c % Calcium 9.3 Total Bilirubin AST ALT Alkaline Phosphatase Troponin I High Sens Total Protein Albumin TSH 3.17 Ethyl Alcohol COVID-19 ([facility]AL) COVID-19 Clin Com Blood Type Antibody Screen Airway Mallampati Class: II TM Dist: >3cm Neck ROM: Full Heart: RRR Lungs: CTA Assessment and Plan Final Anesthetic Review Family History of Problems with Anesthesia: No History of Problems with Anesthesia: No Patient Risk: Intermediate Procedure Risk: Intermediate Anesthetic Plan Anesthetic Plan: GA and Neuraxial Block: Disposition: Standard PACU
--- NOTE | 2021-02-11 13:30 | MHC.SHP ---
Pre-Procedural Eval Section A Date of Service: 02/11/21 The patient is an INPATIENT: Yes Changes since office visit: Yes Patient answered all questions; No Cold of Flu in the past 2 weeks, No New Medical Problems and No Changes in Medication The History & Physical has been completed within 30 days and I have reviewed it.: Yes Section B Chief Complaint: left distal femur fracture Allergies: Allergies Allergy/AdvReac Type Severity Reaction Status Date / Time No Known Allergies Allergy Unverified 12/21/19 15:56 [No Known Allergies*] Plan I have reviewed the history and physical and performed a pertinent physical examination on my patient. No changes have occurred unless specified.
--- NOTE | 2021-02-11 14:40 | P.PNIM_ITS ---
Subjective Subjective Date of Service: 02/11/21 Interval History: Patient seen and examined at bedside. Blood pressure review still slightly high with a systolic around 160s. Patient reports that even at her primary care's office her blood pressure usually runs high, she denies any chest pain, no shortness of breath, no lower extremity swelling. She has no constipation and no urinary symptoms. Plan for surgery this afternoon. Review of Systems Review of Systems: Yes all other systems are reviewed and are negative Physical Exam Vital Signs: Vital Signs: Last Vital Signs Temp 97.0 F 02/11/21 12:47 Pulse 87 02/11/21 12:47 Resp 16 02/11/21 12:47 BP 168/72 H 02/11/21 12:47 Pulse Ox 97 02/11/21 12:47 Body Mass Index 25.0 Const: General: cooperative and no acute distress Orientation/consciousness: patient oriented x3 Eyes: Pupils: Equal, round and reactive pupils present Resp: Effort & Inspection: normal respiratory effort, able to speak in complete sentences and abnormal respiratory pattern Auscultation: clear to auscultation bilaterally Cardio: Rate: regular rate Rhythm: regular rhythm Neuro: General: patient oriented x3 Cranial nerves: Yes Equal, round and reactive pupils present Cognition (Neuro): normal cognition Extrem: General: Yes normal to inspection and Yes no pedal edema Objective Data Active Medications Acetaminophen (Acetaminophen 325 Mg Tablet) 650 mg PO Q6H PRN PRN Reason: Pain, Mild (Pain Scale 1-3) Last Admin: 02/09/21 09:23 Dose: 650 mg Documented by: DIAN Alprazolam (Alprazolam 0.25 Mg Tablet) 0.25 mg PO DAILY PRN PRN Reason: anxiety Atorvastatin Calcium (Atorvastatin Calcium 10 Mg Tablet) 10 mg PO DAILY [facility] Last Admin: 02/11/21 08:58 Dose: 10 mg Documented by: ARIADNA Docusate Sodium (Docusate Sodium 100 Mg Capsule) 100 mg PO BID [facility] Last Admin: 02/11/21 08:58 Dose: 100 mg Documented by: ARIADNA Enoxaparin Sodium (Enoxaparin Sodium 40 Mg/0.4 Ml Syringe) 40 mg SUBCUT Q24H [facility] Stop: 02/18/21 00:00 Last Admin: 02/10/21 11:44 Dose: 40 mg Documented by: [place] Folic Acid (Folic Acid 1 Mg Tablet) 1 mg PO DAILY [facility] Last Admin: 02/11/21 08:58 Dose: 1 mg Documented by: ARIADNA Hydralazine HCl (Hydralazine Hcl 20 Mg/Ml Vial) 5 mg IVPUSH Q6H PRN PRN Reason: SBP > 160 Last Admin: 02/10/21 13:44 Dose: 5 mg Documented by: [place] Hydromorphone HCl (Hydromorphone Hcl 0.5 Mg/0.5 Ml Syringe) 0.25 mg IVPUSH Q4H PRN; Protocol PRN Reason: Pain, Severe (Pain Scale 7-10) Latanoprost (Latanoprost 0.005 % Ophth Vivien 2.5 Ml Drops) 1 drop EYE-RIGHT BEDTIME [facility] Last Admin: 02/10/21 22:40 Dose: 1 drop Documented by: TRICIA Levothyroxine Sodium (Levothyroxine Sodium 100 Mcg Tablet) 100 mcg PO DAILY@0600 [facility] Last Admin: 02/11/21 05:52 Dose: 100 mcg Documented by: TRICIA Metoprolol Succinate (Metoprolol Succinate Er 50 Mg Tab.Er.24h) 50 mg PO DAILY [facility]; Protocol Last Admin: 02/11/21 08:58 Dose: 50 mg Documented by: ARIADNA Nifedipine (Nifedipine Er 30 Mg Tab.Er.24) 60 mg PO DAILY [facility]; Protocol Last Admin: 02/11/21 08:58 Dose: 60 mg Documented by: ARIADNA Omeprazole (Omeprazole 20 Mg Capsule.) 20 mg PO DAILY@0630 [facility] Last Admin: 02/11/21 05:52 Dose: 20 mg Documented by: TRICIA Ondansetron HCl (Ondansetron Hcl 4 Mg/2 Ml Vial) 4 mg IVPUSH ONCE PRN PRN Reason: Nausea and Vomiting Oxycodone HCl (Oxycodone Hcl Immed Release 5 Mg Tablet) 5 mg PO Q4H PRN PRN Reason: Pain, Moderate (Pain Scale 4-6 Pharmacy Consult (Consult Rx Perform Med Rec) 1 each MISCELLANE ONCE PRN PRN Reason: Consult order Sodium Chloride (0.9 % Sodium Chloride Flush 3 Ml Syringe) 3 ml IVFLUSH QSHIFT [facility] Last Admin: 02/11/21 08:57 Dose: 3 ml Documented by: ARIADNA Thiamine HCl (Thiamine Hcl 100 Mg Tablet) 100 mg PO DAILY [facility] Last Admin: 02/11/21 08:58 Dose: 100 mg Documented by: ARIADNA Valsartan (Valsartan 320 Mg Tablet) 320 mg PO DAILY [facility]; Protocol Last Admin: 02/11/21 08:57 Dose: 320 mg Documented by: ARIADNA Labs CBC & Chem 7: 02/11/21 06:04 02/11/21 06:04 Labs: Laboratory Results - last 24 hr 02/11/21 02/11/21 06:04 06:04 MCV 91.6 MCH 31.3 MCHC 34.1 RDW 11.7 Plt Count 192 MPV 10.7 Immature Gran % (Auto) 0.5 H Neut % (Auto) 67.2 Lymph % (Auto) 17.9 L Spink % (Auto) 12.4 H Eos % (Auto) 1.8 Baso % (Auto) 0.2 Lymph # (Auto) 1.1 L Spink # (Auto) 0.8 Eos # (Auto) 0.1 Baso # (Auto) 0.0 Abs Immat Gran (auto) 0.03 Absolute Neuts (auto) 4.1 Absolute Nucleated RBC 0.000 Nucleated RBC % (auto) 0.0 Anion Gap 10 L Estim Creat Clear Calc 66.2 Estimated GFR > 60 Fasting Glucose 102 H Calcium 9.3 TSH 3.17 Assessment and Plan (1) HTN (hypertension): Status: Acute (2) Hyponatremia: Status: Acute (3) Closed trimalleolar fracture of ankle: Status: Acute Assessment and Plan: This is an 85-year-old female who was admitted to the hospital on 02 08 secondary to malleolar fracture has uncontrolled hypertension. We were consulted on this patient for management of her blood pressure. # uncontrolled hypertension - she is on 3 medications including Diovan metoprolol and nifedipine. Nephrology recommends to keep systolic blood pressure less than 160, -this morning blood pressures slightly better - will continue her current medications including metoprolol 50, nifedipine 60 mg daily, as well as Diovan 320 mg daily - further nephrology recommendation appreciated # hyponatremia - possibly secondary to pain driving ADH release - asymptomatic - nephrology recommends restricting hypotonic fluids with p.o. water to 1 L per 24 hours - urine studies - follow BMP # malleolar fracture - plan for surgery today - pain control - DVT prophylaxis per surgical team # hypothyroidism - TSH normal - continue levothyroxine # history of alcohol use - continue folic acid and thiamine DVT prophylaxis: SCDs at this time, with post surgery, per surgical team Quality Stroke Does the patient have a stroke diagnosis?: No VTE Prior VTE?: No VTE Risk Level:: Surgical - very high VTE Device Contraindication: N/A - Device Ordered VTE Drug Contraindication: N/A - Med Ordered
--- NOTE | 2021-02-11 16:08 | PM.OP ---
Brief Operative Note Date of Service: 02/11/21 Pre-op diagnosis: right bimalleolar ankle fracture Post-op diagnosis: same Procedure: ORIF right bimalleolar ankle fracture Implants: Vania locking plat and screws laterally and 2 400 mm 4.0 partially threaded cannulated screws medially Surgeon: Nilson Medel MD Anesthesia: GETA and regional Was an Specialist Field Engineer used for this Procedure?: Yes Specialist Field Engineer: Aysha Ruth Estimated blood loss (mL): 20 Tourniquet time (min): 30 IV fluids (mL): 800 Pathology: none sent Condition: stable Disposition: PACU
[2021-02-11] MEDS: ceFAZolin Sodium/Dextrose,Iso 2 GM/50 ML PIGGYBACK IV (20:45)
[2021-02-12] VITALS (10 sets, daily range): BP systolic 147–177; BP diastolic 65–101; PULSE 70–88; RESP 18–20; TEMP 36.3–37.3; O2SAT 92–100
[2021-02-12] MEDS: Acetaminophen 325 MG TABLET 650 MG PO ×2 (00:21→06:24)
[2021-02-12 03:55] LABS: Creatinine Urine 121.06 mg/dL
[2021-02-12 04:01] LABS: Osmolality Urine 671 mosm/kg (373-1093)
[2021-02-12] MEDS: Omeprazole 20 MG CAPSULE.DR PO (06:18)
[2021-02-12] MEDS: Levothyroxine Sodium 100 MCG TABLET PO (06:18)
[2021-02-12 06:40] LABS: MANUAL DIFF FLAG NO
[2021-02-12 06:48] LABS: Basophils Percent Auto 0.1 % (0-2); Eosinophils Absolute Auto 0.1 X10*3/uL (0.0-0.4); Eosinophils Percent Auto 1.3 % (0-4); Hematocrit 34.1 % (37.0-47.0); Imm Gran Abs Auto 0.02 X10*3/uL (0.00-0.03); Imm Gran Pct Auto 0.2 % (0.0-0.4); Lymphocytes Percent Auto 12.4 % (20-40); Mean Corpuscular HGB Conc 35.2 g/dl (31.0-35.0); Mean Corpuscular Hemoglobin 32.3 pg (27.0-33.0); Mean Corpuscular Volume 91.9 fL (80.0-98.0); Mean Platelet Volume 10.7 fL (9.4-12.3); Monocytes Percent Auto 11.6 % (2-11); Neutrophils Absolute Auto 6.2 x10*3/uL (2.0-8.3); Neutrophils Percent Auto 74.4 % (45-73); Platelet Count 231 X10*3/uL (160-400); Red Blood Count 3.71 X10*6/uL (4.20-5.50); Red Cell Distribution Width 11.8 % (11.0-16.0); White Blood Count 8.4 X10*3/uL (4.8-10.8)
[2021-02-12 07:03] LABS: Anion Gap 12 (12-20); Blood Urea Nitrogen 16 mg/dL (9-16); Calcium 9.1 mg/dL (8.4-10.2); Carbon Dioxide 29 mmol/L (22-29); Chloride 93 mmol/L (96-108); Creatinine Clr Calc Pharmacy 63.9; Estimated Glomerular Filt Rate > 60; Glucose Fasting 106 mg/dL (60-99); Potassium 4.1 mmol/L (3.3-5.1); Sodium 130 mmol/L (135-145)
[2021-02-12 07:31] LABS: Osmolality, Serum 273 mosm/kg (281-305)
--- NOTE | 2021-02-12 08:37 | PC.NURSE ---
Skin assessment completed. Patient has a surgical incision on right ankle from an ORIF-dressing C/D/I. Patient also has redness to perineal area and buttocks. No other skin issues noted at this time.
--- NOTE | 2021-02-12 09:21 | P.PNOP_ITS ---
Subjective Subjective Date of Service: 02/12/21 Interval history: Postop day 1 status post ORIF of the right ankle No overnight events Patient is resting comfortably in bed with no concerns. Denies chest pain shortness of breath or palpitations. Physical Exam Vital Signs: Vital Signs: Last Vital Signs Temp 98.4 F 02/12/21 07:26 Pulse 70 02/12/21 08:26 Resp 18 02/12/21 07:26 BP 155/65 H 02/12/21 08:26 Pulse Ox 98 02/12/21 08:26 Body Mass Index 25.0 Const: General: cooperative, healthy appearing and no acute distress Resp: Effort & Inspection: normal respiratory effort and able to speak in complete sentences Cardio: Rate: regular rate Peripheral pulses: Peripheral pulses 2+ throughout GI: Palpation (GI): Soft to palpation Skin: General skin exam: no rashes or lesions noted Extrem: Other: Right lower extremity splint intact. She does have sensation and motor function of the toes intact. Procedures Date of Service Date of Service: 02/12/21 Progress Note: A&P Assessment and plan (1) Status post ORIF of fracture of ankle: Status: Acute Assessment and Plan: Continue pain management Resume Lovenox for DVT prophylaxis Physical therapy and occupational therapy-nonweightbearing right lower extremity Dispo planning: PT eval and pain management Fall Risk Details Current Medications: Current Medications Acetaminophen (Acetaminophen 325 Mg Tablet) 650 mg PO Q6H PRN PRN Reason: Pain, Mild (Pain Scale 1-3) Last Admin: 02/12/21 06:24 Dose: 650 mg Documented by: Alprazolam (Alprazolam 0.25 Mg Tablet) 0.25 mg PO DAILY PRN PRN Reason: anxiety Atorvastatin Calcium (Atorvastatin Calcium 10 Mg Tablet) 10 mg PO DAILY [facility] Last Admin: 02/11/21 08:58 Dose: 10 mg Documented by: Docusate Sodium (Docusate Sodium 100 Mg Capsule) 100 mg PO BID [facility] Last Admin: 02/11/21 20:45 Dose: 100 mg Documented by: Enoxaparin Sodium (Enoxaparin Sodium 40 Mg/0.4 Ml Syringe) 40 mg SUBCUT Q24H [facility] Stop: 02/18/21 00:00 Last Admin: 02/11/21 15:37 Dose: Not Given Documented by: Folic Acid (Folic Acid 1 Mg Tablet) 1 mg PO DAILY [facility] Last Admin: 02/11/21 08:58 Dose: 1 mg Documented by: Hydralazine HCl (Hydralazine Hcl 20 Mg/Ml Vial) 5 mg IVPUSH Q6H PRN PRN Reason: SBP > 160 Last Admin: 02/10/21 13:44 Dose: 5 mg Documented by: Hydromorphone HCl (Hydromorphone Hcl 0.5 Mg/0.5 Ml Syringe) 0.25 mg IVPUSH Q4H PRN; Protocol PRN Reason: Pain, Severe (Pain Scale 7-10) Latanoprost (Latanoprost 0.005 % Ophth Vivien 2.5 Ml Drops) 1 drop EYE-RIGHT BEDTIME [facility] Last Admin: 02/11/21 20:46 Dose: Not Given Documented by: Levothyroxine Sodium (Levothyroxine Sodium 100 Mcg Tablet) 100 mcg PO DAILY@0600 [facility] Last Admin: 02/12/21 06:18 Dose: 100 mcg Documented by: Metoprolol Succinate (Metoprolol Succinate Er 50 Mg Tab.Er.24h) 50 mg PO DAILY [facility]; Protocol Last Admin: 02/11/21 08:58 Dose: 50 mg Documented by: Nifedipine (Nifedipine Er 30 Mg Tab.Er.24) 60 mg PO DAILY [facility]; Protocol Last Admin: 02/11/21 08:58 Dose: 60 mg Documented by: Omeprazole (Omeprazole 20 Mg Capsule.Dr) 20 mg PO DAILY@0630 [facility] Last Admin: 02/12/21 06:18 Dose: 20 mg Documented by: Oxycodone HCl (Oxycodone Hcl Immed Release 5 Mg Tablet) 5 mg PO Q4H PRN PRN Reason: Pain, Moderate (Pain Scale 4-6 Pharmacy Consult (Consult Rx Perform Med Rec) 1 each MISCELLANE ONCE PRN PRN Reason: Consult order Sodium Chloride (0.9 % Sodium Chloride Flush 3 Ml Syringe) 3 ml IVFLUSH QSHIFT [facility] Last Admin: 02/11/21 20:45 Dose: 3 ml Documented by: Valsartan (Valsartan 320 Mg Tablet) 320 mg PO DAILY [facility]; Protocol Last Admin: 02/11/21 08:57 Dose: 320 mg Documented by: Time Spent With Patient Time: Total time spent is greater than 50% in coordination of care (as documented) at patient's floor/unit and/or counseling patient: Time with patient: less than 15 minutes Quality Stroke Does the patient have a stroke diagnosis?: No VTE Prior VTE?: No VTE Risk Level:: Surgical - very high VTE Device Contraindication: N/A - Device Ordered VTE Drug Contraindication: N/A - Med Ordered
[2021-02-12] MEDS: Docusate Sodium 100 MG CAPSULE PO (09:32)
[2021-02-12] MEDS: 0.9 % Sodium Chloride Flush 3 ML SYRINGE IVFLUSH (09:32)
[2021-02-12] MEDS: Metoprolol Succinate ER 50 MG TAB.ER.24H PO (09:32)
[2021-02-12] MEDS: Valsartan 320 MG TABLET PO (09:33)
[2021-02-12] MEDS: NIFEdipine ER 30 MG TAB.ER.24 60 MG PO (09:33)
[2021-02-12] MEDS: Atorvastatin Calcium 10 MG TABLET PO (09:33)
[2021-02-12] MEDS: Folic Acid 1 MG TABLET PO (09:41)
--- NOTE | 2021-02-12 09:59 | W.PM.DNNEP ---
Subjective Subjective This patient was seen during dialysis. Interval history: Patient seen and examined at bedside. Blood pressure review still slightly high with a systolic around 160s. Patient reports that even at her primary care's office her blood pressure usually runs high, she denies any chest pain, no shortness of breath, no lower extremity swelling. She has no constipation and no urinary symptoms. Plan for surgery this afternoon. Physical Exam Vital Signs: Vital Signs: Last Vital Signs Temp 98.4 F 02/12/21 07:26 Pulse 70 02/12/21 09:33 Resp 18 02/12/21 07:26 BP 155/65 H 02/12/21 09:33 Pulse Ox 98 02/12/21 08:26 Body Mass Index 25.0 Const: General: cooperative Neck: Neck: Yes no JVD Resp: Effort & Inspection: normal respiratory effort Auscultation: clear to auscultation bilaterally Cardio: Jugular venous distension: no JVD Palpation: no palpable S3 and no palpable S4 Rate: not tachycardic GI: Inspection: Yes normal to inspection Palpation (GI): Soft to palpation Auscultation: normal bowel sounds Skin: General skin exam: no rashes or lesions noted Extrem: Right upper extremity: No no edema Assessment & Plan Assessment and plan (1) HTN (hypertension): Status: Acute Assessment and Plan: Work up in progress BP elevated but better controlled Keep current meds (2) Hyponatremia: Status: Acute Assessment and Plan: Asymptomatic urine studies point towards SIADH Na in better today Assessment and Plan: Restrict hypotonic fluids /PO water to 1L per 24 hrs Goal pNa> 133 Time Spent With Patient Time: Total time spent is greater than 50% in coordination of care (as documented) at patient's floor/unit and/or counseling patient: Time with patient: 15 - 24 minutes
--- NOTE | 2021-02-12 11:34 | MHC.CM.PN ---
Patient is not yet medically cleared for dc ;[facility] is following for STR and CM will follow.
--- NOTE | 2021-02-12 12:10 | P.PNIM_ITS ---
Subjective Subjective Date of Service: 02/12/21 Interval History: Patient had ORIF of ankle done yesterday. She is sitting at bedside chair, has no acute complaints. Complaining that she is hungry and waiting for her breakfast. Otherwise denies any chest pain, reports that her pain is controlled at this time. She denies any shortness of breath, no diarrhea constipation. no abdominal pain, headache. No numbness or tingling. Review of Systems Review of Systems: Yes all other systems are reviewed and are negative Physical Exam Vital Signs: Vital Signs: Last Vital Signs Temp 98.0 F 02/12/21 11:13 Pulse 78 02/12/21 11:13 Resp 18 02/12/21 11:13 BP 149/70 H 02/12/21 11:13 Pulse Ox 97 02/12/21 11:13 Body Mass Index 25.0 Const: General: cooperative and no acute distress Orientation/consciousness: patient oriented x3 Eyes: Pupils: Equal, round and reactive pupils present Resp: Effort & Inspection: normal respiratory effort, able to speak in complete sentences and abnormal respiratory pattern Auscultation: clear to auscultation bilaterally Cardio: Rate: regular rate Rhythm: regular rhythm Neuro: General: patient oriented x3 Cranial nerves: Yes Equal, round and reactive pupils present Cognition (Neuro): normal cognition Extrem: Other: Right ankle in dresseing. elevated General: Yes no pedal edema Objective Data Active Medications Acetaminophen (Acetaminophen 325 Mg Tablet) 650 mg PO Q6H PRN PRN Reason: Pain, Mild (Pain Scale 1-3) Last Admin: 02/12/21 06:24 Dose: 650 mg Documented by: JEANNE Alprazolam (Alprazolam 0.25 Mg Tablet) 0.25 mg PO DAILY PRN PRN Reason: anxiety Atorvastatin Calcium (Atorvastatin Calcium 10 Mg Tablet) 10 mg PO DAILY [facility] Last Admin: 02/12/21 09:33 Dose: 10 mg Documented by: ALYSIA Docusate Sodium (Docusate Sodium 100 Mg Capsule) 100 mg PO BID [facility] Last Admin: 02/12/21 09:32 Dose: 100 mg Documented by: ALYSIA Enoxaparin Sodium (Enoxaparin Sodium 40 Mg/0.4 Ml Syringe) 40 mg SUBCUT Q24H [facility] Stop: 02/18/21 00:00 Last Admin: 02/11/21 15:37 Dose: Not Given Documented by: ARIADNA Non-Admin Reason: Off Unit: Surgery Folic Acid (Folic Acid 1 Mg Tablet) 1 mg PO DAILY [facility] Last Admin: 02/12/21 09:41 Dose: 1 mg Documented by: ALYSIA Hydralazine HCl (Hydralazine Hcl 20 Mg/Ml Vial) 5 mg IVPUSH Q6H PRN PRN Reason: SBP > 160 Last Admin: 02/10/21 13:44 Dose: 5 mg Documented by: CHARLOTTE Hydromorphone HCl (Hydromorphone Hcl 0.5 Mg/0.5 Ml Syringe) 0.25 mg IVPUSH Q4H PRN; Protocol PRN Reason: Pain, Severe (Pain Scale 7-10) Lactated Ringer's (Lr) 1,000 mls @ 100 mls/hr IVCONT .Q10H [facility] Latanoprost (Latanoprost 0.005 % Ophth Vivien 2.5 Ml Drops) 1 drop EYE-RIGHT BEDTIME [facility] Last Admin: 02/11/21 20:46 Dose: Not Given Documented by: CAROLYN Non-Admin Reason: Med Not Available Levothyroxine Sodium (Levothyroxine Sodium 100 Mcg Tablet) 100 mcg PO DAILY@0600 [facility] Last Admin: 02/12/21 06:18 Dose: 100 mcg Documented by: JEANNE Metoprolol Succinate (Metoprolol Succinate Er 50 Mg Tab.Er.24h) 50 mg PO DAILY [facility]; Protocol Last Admin: 02/12/21 09:32 Dose: 50 mg Documented by: ALYSIA Nifedipine (Nifedipine Er 30 Mg Tab.Er.24) 60 mg PO DAILY [facility]; Protocol Last Admin: 02/12/21 09:33 Dose: 60 mg Documented by: ALYSIA Omeprazole (Omeprazole 20 Mg Capsule.Dr) 20 mg PO DAILY@0630 [facility] Last Admin: 02/12/21 06:18 Dose: 20 mg Documented by: JEANNE Oxycodone HCl (Oxycodone Hcl Immed Release 5 Mg Tablet) 5 mg PO Q4H PRN PRN Reason: Pain, Moderate (Pain Scale 4-6 Pharmacy Consult (Consult Rx Perform Med Rec) 1 each MISCELLANE ONCE PRN PRN Reason: Consult order Sodium Chloride (0.9 % Sodium Chloride Flush 3 Ml Syringe) 3 ml IVFLUSH QSHIFT [facility] Last Admin: 02/12/21 09:32 Dose: 3 ml Documented by: ALYSIA Valsartan (Valsartan 320 Mg Tablet) 320 mg PO DAILY [facility]; Protocol Last Admin: 02/12/21 09:33 Dose: 320 mg Documented by: ALYSIA Labs CBC & Chem 7: 02/12/21 06:05 02/12/21 06:05 Labs: Laboratory Results - last 24 hr 02/12/21 02/12/21 02/12/21 03:26 03:26 06:05 MCV 91.9 MCH 32.3 MCHC 35.2 H RDW 11.8 Plt Count 231 MPV 10.7 Immature Gran % (Auto) 0.2 Neut % (Auto) 74.4 H Lymph % (Auto) 12.4 L [place] % (Auto) 11.6 H Eos % (Auto) 1.3 Baso % (Auto) 0.1 Lymph # (Auto) 1.0 L [place] # (Auto) 1.0 Eos # (Auto) 0.1 Baso # (Auto) 0.0 Abs Immat Gran (auto) 0.02 Absolute Neuts (auto) 6.2 Absolute Nucleated RBC 0.000 Nucleated RBC % (auto) 0.0 Anion Gap Estim Creat Clear Calc Estimated GFR Fasting Glucose Osmolality Calcium Urine Osmolality 671 Ur Random Chloride 66.0 Urine Creatinine 121.06 02/12/21 02/12/21 06:05 06:05 MCV MCH MCHC RDW Plt Count MPV Immature Gran % (Auto) Neut % (Auto) Lymph % (Auto) [place] % (Auto) Eos % (Auto) Baso % (Auto) Lymph # (Auto) [place] # (Auto) Eos # (Auto) Baso # (Auto) Abs Immat Gran (auto) Absolute Neuts (auto) Absolute Nucleated RBC Nucleated RBC % (auto) Anion Gap 12 Estim Creat Clear Calc 63.9 Estimated GFR > 60 Fasting Glucose 106 H Osmolality 273 L Calcium 9.1 Urine Osmolality Ur Random Chloride Urine Creatinine Assessment and Plan (1) Status post ORIF of fracture of ankle: Status: Acute (2) Hyponatremia: Status: Acute (3) HTN (hypertension): Status: Acute (4) Hypothyroid: Status: Acute Assessment and Plan: This is an 85-year-old female who was admitted to the hospital on 02/08 secondary to malleolar fracture has uncontrolled hypertension. We were consulted on this patient for management of her blood pressure. # uncontrolled hypertension - improved - she is on 3 medications including Diovan metoprolol and nifedipine. 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 water to 1 L per 24 hours - follow BMP # malleolar fracture - POD1 - pain control - Lovenox for DVT - PT/OT - NWB right lower extremity # hypothyroidism - TSH normal - continue levothyroxine # history of alcohol use - continue folic acid and thiamine DVT prophylaxis: Lovenox Quality Stroke Does the patient have a stroke diagnosis?: No VTE Prior VTE?: No VTE Risk Level:: Surgical - very high VTE Device Contraindication: N/A - Device Ordered VTE Drug Contraindication: N/A - Med Ordered
[2021-02-12 12:16] LABS: Glucose, Whole Blood 151 mg/dL (60-115)
[2021-02-12] MEDS: Enoxaparin Sodium 40 MG/0.4 ML SYRINGE SUBCUT (12:20)
[2021-02-12] MEDS: Lactated Ringers 1,000 ML 100 ML IVCONT (12:21)
--- NOTE | 2021-02-12 12:21 | PM.EVENT ---
Event Note Date of Service: 02/12/21 Event Note: Received call from nursing that pt has developed non-stop diarrhea HDS will obtain cdiff and stool cultures IVF
--- NOTE | 2021-02-12 13:22 | PC.NURSE ---
Patient had three episodes of loose stool, was incontinent. While on commode, patient become fatigue, c/o excessive sweating. Glucose checked 151, vss, BP 149/70 minutes before the complaints of severe fatigue and diaphoresis, recheck 10min later 110/68. Change of status reported to the hospitalist. LR @ 100 added. BP 30 min later 110/56, patient had no complaints at that time.
--- NOTE | 2021-02-12 13:36 | HO.POSTANES ---
Post Anesthesia Evaluation Post Anesthesia Evaluation Vital Signs: Vital Signs Temp Pulse Resp BP Pulse Ox 02/12/21 11:13 98.0 F 78 18 149/70 H 97 02/12/21 09:33 70 155/65 H 02/12/21 09:32 70 155/65 H 02/12/21 08:26 70 155/65 H 98 02/12/21 07:26 98.4 F 70 18 155/65 H 98 02/12/21 06:21 147/66 H 02/12/21 03:03 97.5 F 76 18 177/77 H 96 Anesthesia: Nerve Block and General Mental Status: Awake Pain Control: Satisfactory Nausea/Vomiting: None Hydration: Adequate Anesthesia-Related Issues: No Anes. Related Issues
--- NOTE | 2021-02-12 16:10 | P.PNNP_ITS ---
Subjective Subjective Date of Service: 02/12/21 Physical Exam Vital Signs: Vital Signs: Last Vital Signs Temp 98.2 F 02/12/21 14:52 Pulse 78 02/12/21 14:52 Resp 20 02/12/21 14:52 BP 166/101 H 02/12/21 14:52 Pulse Ox 100 02/12/21 14:52 Body Mass Index 25.0 Const: General: cooperative, healthy appearing and no acute distress Eyes: General: appearance normal, both eyes and all related structures Pupils: Equal, round and reactive pupils present Neck: Neck: Yes no lymphadenopathy and Yes supple Resp: Effort & Inspection: normal respiratory effort and able to speak in complete sentences Auscultation: clear to auscultation bilaterally Cardio: Jugular venous distension: no JVD Heart sounds: S1 normal heart sound present, S2 normal heart sound present and no murmurs Peripheral pulses: Peripheral pulses 2+ throughout GI: Palpation (GI): Soft to palpation, nontender and no guarding Auscultation: normal bowel sounds Skin: General skin exam: no rashes or lesions noted Lesions: no lesions Neuro: Cranial nerves: Yes Equal, round and reactive pupils present Motor exam (neuro): 5/5 motor strength present throughout Objective Data Labs CBC & Chem 7: 02/12/21 06:05 02/12/21 06:05 Labs: Laboratory Results - last 24 hr 02/12/21 02/12/21 02/12/21 03:26 03:26 06:05 WBC 8.4 RBC 3.71 L Hgb 12.0 Hct 34.1 L MCV 91.9 MCH 32.3 MCHC 35.2 H RDW 11.8 Plt Count 231 MPV 10.7 Immature Gran % (Auto) 0.2 Neut % (Auto) 74.4 H Lymph % (Auto) 12.4 L [place] % (Auto) 11.6 H Eos % (Auto) 1.3 Baso % (Auto) 0.1 Lymph # (Auto) 1.0 L [place] # (Auto) 1.0 Eos # (Auto) 0.1 Baso # (Auto) 0.0 Abs Immat Gran (auto) 0.02 Absolute Neuts (auto) 6.2 Absolute Nucleated RBC 0.000 Nucleated RBC % (auto) 0.0 Sodium Potassium Chloride Carbon Dioxide Anion Gap BUN Creatinine Estim Creat Clear Calc Estimated GFR POC Glucose Fasting Glucose Osmolality Calcium Urine Osmolality 671 Ur Random Chloride 66.0 Urine Creatinine 121.06 02/12/21 02/12/21 02/12/21 06:05 06:05 11:55 WBC RBC Hgb Hct MCV MCH MCHC RDW Plt Count MPV Immature Gran % (Auto) Neut % (Auto) Lymph % (Auto) [place] % (Auto) Eos % (Auto) Baso % (Auto) Lymph # (Auto) [place] # (Auto) Eos # (Auto) Baso # (Auto) Abs Immat Gran (auto) Absolute Neuts (auto) Absolute Nucleated RBC Nucleated RBC % (auto) Sodium 130 L Potassium 4.1 Chloride 93 L Carbon Dioxide 29 Anion Gap 12 BUN 16 Creatinine 0.59 Estim Creat Clear Calc 63.9 Estimated GFR > 60 POC Glucose 151 H Fasting Glucose 106 H Osmolality 273 L Calcium 9.1 Urine Osmolality Ur Random Chloride Urine Creatinine Procedures Date of Service Date of Service: 02/12/21 Assessment & Plan Assessment and plan (1) HTN (hypertension): Status: Acute Assessment and Plan: Work up in progress BP elevated but better controlled Keep current meds (2) Hyponatremia: Status: Acute Assessment and Plan: Asymptomatic urine studies point towards SIADH Na in better today Assessment and Plan: Restrict hypotonic fluids /PO water to 1L per 24 hrs Goal pNa> 133 Time Spent With Patient Time: Total time spent is greater than 50% in coordination of care (as documented) at patient's floor/unit and/or counseling patient: Time with patient: 15 - 24 minutes Progress Note: Quality Stroke Does the patient have a stroke diagnosis?: No
[2021-02-12] MEDS: oxyCODONE HCl Immed Release 5 MG TABLET PO (18:20)
[2021-02-12] MEDS: Latanoprost 0.005 % Ophth Sol 2.5 ML DROPS 1 DROP EYE-RIGHT (21:23)
[2021-02-13] MEDS: Lactated Ringers 1,000 ML 100 ML IVCONT ×2 (00:40→09:24)
[2021-02-13 03:04] VITALS: BP 170/72; PULSE 94; RESP 20; TEMP 36.9; O2SAT 97
[2021-02-13] MEDS: Levothyroxine Sodium 100 MCG TABLET PO (05:40)
[2021-02-13] MEDS: Omeprazole 20 MG CAPSULE.DR PO (05:40)
[2021-02-13 06:59] VITALS: BP 170/70; PULSE 84; RESP 20; TEMP 36.1; O2SAT 96
[2021-02-13 07:19] LABS: MANUAL DIFF FLAG NO
[2021-02-13 07:22] LABS: Basophils Percent Auto 0.2 % (0-2); Eosinophils Absolute Auto 0.1 X10*3/uL (0.0-0.4); Eosinophils Percent Auto 1.7 % (0-4); Hemoglobin 10.8 g/dl (12.0-16.0); Imm Gran Abs Auto 0.01 X10*3/uL (0.00-0.03); Imm Gran Pct Auto 0.2 % (0.0-0.4); Lymphocytes Absolute Auto 1.1 X10*3/uL (1.2-4.9); Lymphocytes Percent Auto 18.1 % (20-40); Mean Corpuscular HGB Conc 34.8 g/dl (31.0-35.0); Mean Corpuscular Hemoglobin 32.4 pg (27.0-33.0); Mean Corpuscular Volume 93.1 fL (80.0-98.0); Mean Platelet Volume 10.4 fL (9.4-12.3); Monocytes Absolute Auto 0.8 X10*3/uL (0.1-1.2); Monocytes Percent Auto 13.3 % (2-11); Neutrophils Absolute Auto 4.2 x10*3/uL (2.0-8.3); Neutrophils Percent Auto 66.5 % (45-73); Platelet Count 211 X10*3/uL (160-400); Red Blood Count 3.33 X10*6/uL (4.20-5.50); Red Cell Distribution Width 11.8 % (11.0-16.0); White Blood Count 6.3 X10*3/uL (4.8-10.8)
[2021-02-13 07:58] LABS: Anion Gap 13 (12-20); Blood Urea Nitrogen 11 mg/dL (9-16); Carbon Dioxide 27 mmol/L (22-29); Chloride 96 mmol/L (96-108); Creatinine Clr Calc Pharmacy 68.6; Estimated Glomerular Filt Rate > 60; Glucose Fasting 93 mg/dL (60-99); Sodium 132 mmol/L (135-145)
--- NOTE | 2021-02-13 09:05 | PM.PNORT ---
Subjective Subjective Date of Service: 02/13/21 Interval history: Postop day 2 status post ORIF of the right ankle No overnight events Patient is resting comfortably in bed with no concerns. Denies chest pain shortness of breath or palpitations. Physical Exam Vital Signs: Vital Signs: Last Vital Signs Temp 97 F 02/13/21 06:59 Pulse 84 02/13/21 06:59 Resp 20 02/13/21 06:59 BP 170/70 H 02/13/21 06:59 Pulse Ox 96 02/13/21 06:59 Body Mass Index 25.0 Const: General: cooperative, healthy appearing and no acute distress Resp: Effort & Inspection: normal respiratory effort and able to speak in complete sentences Cardio: Rate: regular rate Peripheral pulses: Peripheral pulses 2+ throughout GI: Palpation (GI): Soft to palpation Skin: Lesions: no lesions Rashes: no rashes Extrem: Other: Right lower extremity splint intact.? She does have sensation and motor function of the toes intact. Procedures Date of Service Date of Service: 02/13/21 Progress Note: A&P Assessment and plan (1) Status post ORIF of fracture of ankle: Status: Acute Assessment and Plan: Continue pain management Resume Lovenox for DVT prophylaxis Physical therapy and occupational therapy-nonweightbearing right lower extremity Dispo planning:? Pain management, Patient is cleared from ortho perspective to d/c to rehab Fall Risk Details Current Medications: Current Medications Acetaminophen (Acetaminophen 325 Mg Tablet) 650 mg PO Q6H PRN PRN Reason: Pain, Mild (Pain Scale 1-3) Last Admin: 02/12/21 06:24 Dose: 650 mg Documented by: Alprazolam (Alprazolam 0.25 Mg Tablet) 0.25 mg PO DAILY PRN PRN Reason: anxiety Atorvastatin Calcium (Atorvastatin Calcium 10 Mg Tablet) 10 mg PO DAILY [facility]CLUDES [facility] Last Admin: 02/12/21 09:33 Dose: 10 mg Documented by: Docusate Sodium (Docusate Sodium 100 Mg Capsule) 100 mg PO BID [facility]CLUD[facility] Last Admin: 02/12/21 20:00 Dose: Not Given Documented by: Enoxaparin Sodium (Enoxaparin Sodium 40 Mg/0.4 Ml Syringe) 40 mg SUBCUT Q24H [facility] Stop: 02/18/21 00:00 Last Admin: 02/12/21 12:20 Dose: 40 mg Documented by: Folic Acid (Folic Acid 1 Mg Tablet) 1 mg PO DAILY [facility] Last Admin: 02/12/21 09:41 Dose: 1 mg Documented by: Hydralazine HCl (Hydralazine Hcl 20 Mg/Ml Vial) 5 mg IVPUSH Q6H PRN PRN Reason: SBP > 160 Last Admin: 02/10/21 13:44 Dose: 5 mg Documented by: Hydromorphone HCl (Hydromorphone Hcl 0.5 Mg/0.5 Ml Syringe) 0.25 mg IVPUSH Q4H PRN; Protocol PRN Reason: Pain, Severe (Pain Scale 7-10) Lactated Ringer's (Lr) 1,000 mls @ 100 mls/hr IVCONT .Q10H [facility] Last Admin: 02/13/21 00:40 Dose: 100 mls/hr Documented by: Latanoprost (Latanoprost 0.005 % Ophth Vivien 2.5 Ml Drops) 1 drop EYE-RIGHT BEDTIME COUNT [facility]CLUDES [facility] Last Admin: 02/12/21 21:23 Dose: 1 drop Documented by: Levothyroxine Sodium (Levothyroxine Sodium 100 Mcg Tablet) 100 mcg PO DAILY@0600 [facility] Last Admin: 02/13/21 05:40 Dose: 100 mcg Documented by: Metoprolol Succinate (Metoprolol Succinate Er 50 Mg Tab.Er.24h) 50 mg PO DAILY [facility]; Protocol Last Admin: 02/12/21 09:32 Dose: 50 mg Documented by: Nifedipine (Nifedipine Er 30 Mg Tab.Er.24) 60 mg PO DAILY [facility]; Protocol Last Admin: 02/12/21 09:33 Dose: 60 mg Documented by: Omeprazole (Omeprazole 20 Mg Capsule.Dr) 20 mg PO DAILY@0630 [facility] Last Admin: 02/13/21 05:40 Dose: 20 mg Documented by: Oxycodone HCl (Oxycodone Hcl Immed Release 5 Mg Tablet) 5 mg PO Q4H PRN PRN Reason: Pain, Moderate (Pain Scale 4-6 Last Admin: 02/12/21 18:20 Dose: 5 mg Documented by: Pharmacy Consult (Consult Rx Perform Med Rec) 1 each MISCELLANE ONCE PRN PRN Reason: Consult order Sodium Chloride (0.9 % Sodium Chloride Flush 3 Ml Syringe) 3 ml IVFLUSH QSHIFT [facility] Last Admin: 02/13/21 00:24 Dose: Not Given Documented by: Valsartan (Valsartan 320 Mg Tablet) 320 mg PO DAILY [facility]; Protocol Last Admin: 02/12/21 09:33 Dose: 320 mg Documented by: Time Spent With Patient Time: Total time spent is greater than 50% in coordination of care (as documented) at patient's floor/unit and/or counseling patient: Time with patient: less than 15 minutes Quality Stroke Does the patient have a stroke diagnosis?: No VTE Prior VTE?: No VTE Risk Level:: Surgical - very high VTE Device Contraindication: N/A - Device Ordered VTE Drug Contraindication: N/A - Med Ordered
[2021-02-13 09:20] VITALS: BP 170/70; PULSE 84
[2021-02-13] MEDS: NIFEdipine ER 30 MG TAB.ER.24 60 MG PO (09:20)
[2021-02-13] MEDS: Enoxaparin Sodium 40 MG/0.4 ML SYRINGE SUBCUT (09:20)
[2021-02-13] MEDS: Metoprolol Succinate ER 50 MG TAB.ER.24H PO (09:20)
[2021-02-13 09:21] VITALS: BP 170/70; PULSE 84
[2021-02-13] MEDS: Atorvastatin Calcium 10 MG TABLET PO (09:21)
[2021-02-13] MEDS: Valsartan 320 MG TABLET PO (09:21)
[2021-02-13] MEDS: Folic Acid 1 MG TABLET PO (09:21)
[2021-02-13] MEDS: oxyCODONE HCl Immed Release 5 MG TABLET PO (09:24)
--- NOTE | 2021-02-13 09:53 | P.PNNP_ITS ---
Subjective Subjective Date of Service: 03/03/21 Interval history: Events noted SBP in the 170s Physical Exam Vital Signs: Vital Signs: Last Vital Signs Temp 97 F 02/13/21 06:59 Pulse 84 02/13/21 09:21 Resp 20 02/13/21 06:59 BP 170/70 H 02/13/21 09:21 Pulse Ox 96 02/13/21 06:59 Body Mass Index 25.0 Const: General: cooperative, healthy appearing and no acute distress Eyes: General: appearance normal, both eyes and all related structures Pupils: Equal, round and reactive pupils present Neck: Neck: Yes no lymphadenopathy and Yes supple Resp: Effort & Inspection: normal respiratory effort and able to speak in complete sentences Auscultation: clear to auscultation bilaterally Cardio: Jugular venous distension: no JVD Heart sounds: S1 normal heart sound present, S2 normal heart sound present and no murmurs Peripheral pulses: Peripheral pulses 2+ throughout GI: Palpation (GI): Soft to palpation, nontender and no guarding Auscultation: normal bowel sounds Skin: General skin exam: no rashes or lesions noted Lesions: no lesions Neuro: Cranial nerves: Yes Equal, round and reactive pupils present Motor exam (neuro): 5/5 motor strength present throughout Objective Data Labs CBC & Chem 7: 02/13/21 06:33 02/13/21 06:33 Labs: Laboratory Results - last 24 hr 02/12/21 02/13/21 02/13/21 11:55 06:33 06:33 WBC 6.3 RBC 3.33 L Hgb 10.8 L Hct 31.0 L MCV 93.1 MCH 32.4 MCHC 34.8 RDW 11.8 Plt Count 211 MPV 10.4 Immature Gran % (Auto) 0.2 Neut % (Auto) 66.5 Lymph % (Auto) 18.1 L [place] % (Auto) 13.3 H Eos % (Auto) 1.7 Baso % (Auto) 0.2 Lymph # (Auto) 1.1 L [place] # (Auto) 0.8 Eos # (Auto) 0.1 Baso # (Auto) 0.0 Abs Immat Gran (auto) 0.01 Absolute Neuts (auto) 4.2 Absolute Nucleated RBC 0.000 Nucleated RBC % (auto) 0.0 Sodium 132 L Potassium 4.0 Chloride 96 Carbon Dioxide 27 Anion Gap 13 BUN 11 Creatinine 0.55 Estim Creat Clear Calc 68.6 Estimated GFR > 60 POC Glucose 151 H Fasting Glucose 93 Calcium 9.0 Procedures Date of Service Date of Service: 02/13/21 Assessment & Plan Assessment and plan (1) HTN (hypertension): Assessment and Plan: BP elevated PA,PRA pending Check Orthostatic BPs Can add Hydralazine 25 mg PO TID Taper and DC IVF Keep current meds (2) Hyponatremia: Assessment and Plan: Asymptomatic urine studies point towards SIADH Na in better today at 132 Assessment and Plan: Restrict hypotonic fluids /PO water to 1L per 24 hrs Goal pNa> 133 Time Spent With Patient Time: Total time spent is greater than 50% in coordination of care (as documented) at patient's floor/unit and/or counseling patient: Time with patient: 15 - 24 minutes Progress Note: Quality Stroke Does the patient have a stroke diagnosis?: No
[2021-02-13 10:47] VITALS: BP 145/65; PULSE 77; RESP 19; TEMP 35.8; O2SAT 95
[2021-02-13 11:07] VITALS: BP 145/65; PULSE 77; O2SAT 95
--- NOTE | 2021-02-13 13:15 | MHC.CM.PN ---
Per ORTHO RYAN/Rosalind, Patient has been cleared for dc to STR/SNF today.Patient will dc to [facility] today at 3PM, via [facility].Patient and her Daughter/Florence at [phone] are aware of and in agreement with the dc plan. Second IMM addressed with Patient and the original has been given to her and a copy has been placed on the chart.
[2021-02-13 13:52] LABS: COVID-19 Test Negative (Negative)
--- NOTE | 2021-02-13 14:02 | HO.PM.IMPN ---
Subjective Subjective Date of Service: 02/13/21 Interval History: Seen and examined this morning Follow-up for medical consultation Denies diarrhea this morning no specific complaints at this time Review of Systems Review of Systems: Yes all other systems are reviewed and are negative Constitutional Constitutional: Denies chills and Denies fever(s) Cardiovascular Cardiovascular: Denies chest pain Respiratory Respiratory: Denies cough Gastrointestinal Gastrointestinal: Denies abdominal pain Physical Exam Vital Signs: Vital Signs: Last Vital Signs Temp 96.5 F L 02/13/21 10:47 Pulse 77 02/13/21 11:07 Resp 19 02/13/21 10:47 BP 145/65 H 02/13/21 11:07 Pulse Ox 95 02/13/21 11:07 Body Mass Index 25.0 Const: General: cooperative, comfortable, no acute distress, alert and awake Nutritional Appearance: well nourished HENMT: Head: Yes normocephalic and Yes atraumatic Eyes: Sclerae: sclerae normal Resp: Effort & Inspection: normal respiratory effort and no respiratory distress Cardio: Rate: regular rate Rhythm: regular rhythm GI: Palpation (GI): Soft to palpation and nontender Neuro: Cranial nerves: Yes CN's II-XII intact bilaterally and Yes Bilaterally intact EOM present Extrem: Other: Right ankle in Andrew bandage Objective Data Active Medications Acetaminophen (Acetaminophen 325 Mg Tablet) 650 mg PO Q6H PRN PRN Reason: Pain, Mild (Pain Scale 1-3) Last Admin: 02/12/21 06:24 Dose: 650 mg Documented by: JEANNE Alprazolam (Alprazolam 0.25 Mg Tablet) 0.25 mg PO DAILY PRN PRN Reason: anxiety Atorvastatin Calcium (Atorvastatin Calcium 10 Mg Tablet) 10 mg PO DAILY [facility] Last Admin: 02/13/21 09:21 Dose: 10 mg Documented by: CARINE Docusate Sodium (Docusate Sodium 100 Mg Capsule) 100 mg PO BID [facility] Last Admin: 02/13/21 09:26 Dose: Not Given Documented by: CARINE Non-Admin Reason: diarrhea Enoxaparin Sodium (Enoxaparin Sodium 40 Mg/0.4 Ml Syringe) 40 mg SUBCUT Q24H [facility] Stop: 02/18/21 00:00 Last Admin: 02/13/21 09:20 Dose: 40 mg Documented by: CARINE Folic Acid (Folic Acid 1 Mg Tablet) 1 mg PO DAILY [facility] Last Admin: 02/13/21 09:21 Dose: 1 mg Documented by: CARINE Hydralazine HCl (Hydralazine Hcl 20 Mg/Ml Vial) 5 mg IVPUSH Q6H PRN PRN Reason: SBP > 160 Last Admin: 02/10/21 13:44 Dose: 5 mg Documented by: CHARLOTTE Latanoprost (Latanoprost 0.005 % Ophth Ivvien 2.5 Ml Drops) 1 drop EYE-RIGHT BEDTIME [facility] Last Admin: 02/12/21 21:23 Dose: 1 drop Documented by: PALAK Levothyroxine Sodium (Levothyroxine Sodium 100 Mcg Tablet) 100 mcg PO DAILY@0600 [facility] Last Admin: 02/13/21 05:40 Dose: 100 mcg Documented by: PALAK Metoprolol Succinate (Metoprolol Succinate Er 50 Mg Tab.Er.24h) 50 mg PO DAILY [facility]; Protocol Last Admin: 02/13/21 09:20 Dose: 50 mg Documented by: CARINE Nifedipine (Nifedipine Er 30 Mg Tab.Er.24) 60 mg PO DAILY [facility]; Protocol Last Admin: 02/13/21 09:20 Dose: 60 mg Documented by: CARINE Omeprazole (Omeprazole 20 Mg Capsule.Dr) 20 mg PO DAILY@0630 [facility] Last Admin: 02/13/21 05:40 Dose: 20 mg Documented by: PALAK Pharmacy Consult (Consult Rx Perform Med Rec) 1 each MISCELLANE ONCE PRN PRN Reason: Consult order Sodium Chloride (0.9 % Sodium Chloride Flush 3 Ml Syringe) 3 ml IVFLUSH QSHIFT [facility] Last Admin: 02/13/21 09:22 Dose: Not Given Documented by: CARINE Non-Admin Reason: IV Running Valsartan (Valsartan 320 Mg Tablet) 320 mg PO DAILY [facility]; Protocol Last Admin: 02/13/21 09:21 Dose: 320 mg Documented by: CARINE Labs CBC & Chem 7: 02/13/21 06:33 02/13/21 06:33 Labs: Laboratory Results - last 24 hr 02/13/21 02/13/21 02/13/21 06:33 06:33 13:20 MCV 93.1 MCH 32.4 MCHC 34.8 RDW 11.8 Plt Count 211 MPV 10.4 Immature Gran % (Auto) 0.2 Neut % (Auto) 66.5 Lymph % (Auto) 18.1 L [place] % (Auto) 13.3 H Eos % (Auto) 1.7 Baso % (Auto) 0.2 Lymph # (Auto) 1.1 L [place] # (Auto) 0.8 Eos # (Auto) 0.1 Baso # (Auto) 0.0 Abs Immat Gran (auto) 0.01 Absolute Neuts (auto) 4.2 Absolute Nucleated RBC 0.000 Nucleated RBC % (auto) 0.0 Anion Gap 13 Estim Creat Clear Calc 68.6 Estimated GFR > 60 Fasting Glucose 93 Calcium 9.0 COVID-19 ([facility]) Negative COVID-19 Clin Com See Note Assessment and Plan (1) Hyponatremia: Status: Acute (2) HTN (hypertension): Status: Acute Assessment and Plan: This is an 85-year-old female who was admitted to the hospital on 02/08 secondary to malleolar fracture has uncontrolled hypertension. We were consulted on this patient for management of her blood pressure. Diarrhea No further episodes diarrhea today C diff, stool culture uncollected uncontrolled hypertension. improving - add hydralazine per nephro rec - continue Diovan, metoprolol and nifedipine. hyponatremia, improving. Sodium 132 today Likely secondary to SIADH - follow BMP malleolar fracture POD2 s/p repair -Management per orthopedic team hypothyroidism - TSH normal - continue levothyroxine history of alcohol use No active withdrawal at this time - continue folic acid and thiamine DVT prophylaxis: Lovenox attending: dr. amador Quality Stroke Does the patient have a stroke diagnosis?: No VTE Prior VTE?: No VTE Risk Level:: Surgical - very high VTE Device Contraindication: N/A - Device Ordered VTE Drug Contraindication: N/A - Med Ordered
--- NOTE | 2021-02-13 14:23 | PM.DS ---
DS: Providers Provider Date of Service: 02/13/21 Date of admission: 02/08/21 09:50 Primary care physician: Cesar Estrada MD Consults: 02/08/21 07:21 Consult to Orthopedics Routine Consulting Provider: Nilson Medel Reason for consultation: Right ankle Trimalleolar fracture Has provider been notified: No 02/08/21 10:56 Consult to Hospitalist Routine Consulting Provider: Hospitalist Reason For Exam: routine medical management and preop clearance 02/09/21 15:24 Consult to Nephrology Routine Consulting Provider: Mario Gan Reason for consultation: uncontrolled htn Has provider been notified: No DS: Diagnosis Discharge Diagnosis (1) HTN (hypertension): Status: Acute (2) Hyponatremia: Status: Acute DS: Summary Hospital Course Hospital Course: The patient underwent a successful right ankle ORIF, they were transferred to PACU and then to the floor to recover. During their stay, their vitals were stable, afebrile at 96.5. Labs were unremarkable, H/H 10.8/31.0. POD 1 they were started on Lovenox for DVT ppx, they also received Physical Therapy services twice a day. Prior to discharge, their dressing was changed, incision clean dry and intact, new Aquacel dressing applied and the plan was to be discharged home with VNA services. Time Spent with Patient Time attestation: Total time spent providing and/or coordinating discharge services: Discharge coordination time: Less than 30 minutes Quality: Stroke Does the patient have a stroke diagnosis?: No Physical Exam Vital Signs: Vital Signs: Last Vital Signs Temp 96.5 F L 02/13/21 10:47 Pulse 77 02/13/21 11:07 Resp 19 02/13/21 10:47 BP 145/65 H 02/13/21 11:07 Pulse Ox 95 02/13/21 11:07 Body Mass Index 25.0 Const: General: cooperative, healthy appearing and no acute distress Resp: Effort & Inspection: normal respiratory effort and able to speak in complete sentences Cardio: Rate: regular rate Peripheral pulses: Peripheral pulses 2+ throughout GI: Palpation (GI): Soft to palpation Skin: Lesions: no lesions Rashes: no rashes Extrem: Other: Right lower extremity splint intact.? She does have sensation and motor function of the toes intact. DS: Data Data Completed and Pending Labs on day of discharge: Laboratory Results - last 24 hr 02/13/21 02/13/21 02/13/21 06:33 06:33 13:20 WBC 6.3 RBC 3.33 L Hgb 10.8 L Hct 31.0 L MCV 93.1 MCH 32.4 MCHC 34.8 RDW 11.8 Plt Count 211 MPV 10.4 Immature Gran % (Auto) 0.2 Neut % (Auto) 66.5 Lymph % (Auto) 18.1 L [place] % (Auto) 13.3 H Eos % (Auto) 1.7 Baso % (Auto) 0.2 Lymph # (Auto) 1.1 L [place] # (Auto) 0.8 Eos # (Auto) 0.1 Baso # (Auto) 0.0 Abs Immat Gran (auto) 0.01 Absolute Neuts (auto) 4.2 Absolute Nucleated RBC 0.000 Nucleated RBC % (auto) 0.0 Sodium 132 L Potassium 4.0 Chloride 96 Carbon Dioxide 27 Anion Gap 13 BUN 11 Creatinine 0.55 Estim Creat Clear Calc 68.6 Estimated GFR > 60 Fasting Glucose 93 Calcium 9.0 COVID-19 ([facility]) Negative COVID-19 Clin Com See Note Discharge Plan Discharge Patient Disposition: Xfer SNF Discharge Diagnosis: s/p RT ankle ORIF Referrals: [facility] [Outside] - 1 Week Cesar Estrada MD [Primary Care Provider] - 1 Week Discharge Medications: New enoxaparin 40 mg/0.4 mL Syringe 40 mg subcut Q24H 30 Days Qty: 12 RF: 0 hydralazine 25 mg Tablet 25 mg PO BID 30 Days Qty: 60 RF: 0 acetaminophen 325 mg Tablet 650 mg PO Q6H PRN (Reason: Pain, Mild (Pain Scale 1-3)) 30 Days Qty: 240 RF: 0 nifedipine 30 mg Tablet Extended Release 24hr 60 mg PO DAILY 30 Days Qty: 60 RF: 0 folic acid 1 mg Tablet 1 mg PO DAILY 30 Days Qty: 30 RF: 0 Continued latanoprost 0.005 % drops 1 drp ophthalmic-Right BEDTIME RF: 0 atorvastatin 10 mg tablet 10 mg PO DAILY RF: 0 levothyroxine 100 mcg tablet 100 mcg PO DAILY RF: 0 valsartan 320 mg tablet 320 mg PO DAILY RF: 0 omeprazole 20 mg capsule,delayed release(DR/EC) 1 cap PO DAILY RF: 0 estradiol 0.01 % (0.1 mg/gram) cream 1 g vaginal SUWE RF: 0 metoprolol succinate 50 mg tablet extended release 24 hr 50 mg PO DAILY RF: 0 Discharge Orders: Discharge Order (Routine); Ordered 02/13/21 Ordered By: Rosalind Silva Activity on Discharge: Use cane or walker Stand Alone Forms: Patient Portal Discharge page Care Plan Goals: restore fxn to right ankle Health Concerns: HTN Plan of Treatment: Keep splint clean, dry, and intact Elevate throughout the day NWB Do not bathe or shower--keep splint dry Call [facility] orthopedics with any questions or concerns. Follow up with orthopedics in 7-10 days post op Assessment: stable for d/c
[2021-02-13] MEDS: Acetaminophen 325 MG TABLET 650 MG PO (15:29)
--- NOTE | 2021-02-14 13:15 | P.OP_ITS ---
Operative Note Operative Note Date of Service: 02/14/21 Narrative: Pre-op diagnosis: right bimalleolar ankle fracture Post-op diagnosis: same Procedure: ORIF right bimalleolar ankle fracture Implants: [place] locking plat and screws laterally and 2 400 mm 4.0 partially threaded cannulated screws medially Surgeon: Nilson Medel MD Anesthesia: GETA and regional Was an Acquisition Specialist used for this Procedure?: Yes Acquisition Specialist: Aysha Ruth Estimated blood loss (mL): 20 Tourniquet time (min): 30 IV fluids (mL): 800 Pathology: none sent Condition: stable Disposition: PACU Procedure in detail: Patient was brought to the operating room and placed supine on the operative table. All bony prominences were well padded and a time-out was called to identify proper site proper procedure proper surgeon. IV antibiotics per weight were administered. I began by exsanguinating limb is slightly tourniquet to 300 mm Hg. I then made a standard posterolateral incision over the fibula. Full- thickness flaps were taken down to the fibular shaft and distal fibula. The fracture was identified and cleaned with a combination of curette, rongeur and irrigation. A lobster claw was used to provisionally reduce the fracture and a 6 hole distal fibular locking plate was applied using standard AO technique. Biplanar fluoroscopy was used to confirm hardware position and fracture reduction. Once I was satisfied that both of these were acceptable I irrigated copiously and turned my attention to the medial side. The transverse medial malleolar fracture was identified after skin incision. Full-thickness skin flaps were developed and, With a sharp tenaculum, the fracture was reduced. 2 threaded K-wires were then placed from distal to proximal and perpendicular to the fracture. Biplanar fluoroscopy was used to confirm positioning and then they were overdrilled and 2 40 mm 4.0 partially-threaded cannulated cancellous screws were placed across the fracture. I was satisfied with the position and the fracture reduction based on biplanar fluoroscopy. This syndesmosis was tested using external rotation test and was found to be stable. Therefore all instrumentation was removed and copious irrigation was performed. Absorbable suture and melva were used for closure and the patient was placed into sterile dressings and a well-padded posterior splint. Tourniquet was let down and the patient was extubated brought to recovery room in stable condition there were no known complications.
[2021-02-17 04:37] LABS: Renin 0.44 ng/mL/h (0.25-5.82)
== END 2021-02-13 15:45 | disposition skilled nursing facility (03) | DRG 493 ==
LOC: HO.ED 07:24 → HO.EDOVER 09:54 → HO.S3 16:54 → HO.IMC 02-09 15:15
PROVIDERS: Internal Medicine; Internal Medicine Hypertension Specialist; Physician Assistant; Admitting Provider Orthopaedic Surgery; Emergency Provider Emergency Medicine Emergency Medical Services; PCP Internal Medicine; Visit Provider Orthopaedic Surgery
PROC: 0QSG04Z Reposition Right Tibia with Internal Fixation Device, Open Approach (ICD-10-PCS; principal; 2021-02-11 15:00)
DX: S82.851A Displaced trimalleolar fracture of right lower leg, initial encounter for closed fracture (principal); E87.3 Alkalosis; E22.2 Syndrome of inappropriate secretion of antidiuretic hormone; W01.0XXA Fall on same level from slipping, tripping and stumbling without subsequent striking against object, initial encounter; E89.0 Postprocedural hypothyroidism; I10 Essential (primary) hypertension; H54.8 Legal blindness, as defined in USA; Y92.009 Unspecified place in unspecified non-institutional (private) residence as the place of occurrence of the external cause; E78.5 Hyperlipidemia, unspecified; Y90.5 Blood alcohol level of 100-119 mg/100 ml; Z20.822 Contact with and (suspected) exposure to COVID-19; Z79.890 Hormone replacement therapy; Z79.899 Other long term (current) drug therapy
CPT/HCPCS: 36415; 73600; 80048; 80053; 82077; 82088; 82436; 82947; 83036; 83930; 83935; 84244; 84443; 84484; 85025; 85610; 85730; 86850; 86900; 86901; 87635; 93005; 96374; 96375; 96376; 97110; 97162; 97166; 97530; 97535; 99285; C1713; J0690; J1650; J2250; J2270; J2405; J3010

== ENCOUNTER 2021-02-24 07:16 | Outpatient (REF) | payer MEDICARE, SELFPAY ==
--- NOTE | ~2021-02-24 | XR_ITS ---
EXAMINATION: XR ANKLE, RIGHT CLINICAL INFORMATION: Status post reduction fractures right ankle. COMPARISON: Radiographs right ankle 02/08/2021. TECHNIQUE: AP, lateral, and mortise views of the right ankle. FINDINGS: There is an overlying fiberglass splint. Medial malleolus fracture reduced with 2 screws. Fragments and near anatomic alignment. There are overlying skin melva. The distal fibular fracture is reduced with lateral compression plate and multiple screws. Hardware is intact. Fracture fragments are in near-anatomic alignment. Ankle mortise appears symmetric. There is a corticated ossicle adjacent to the distal posterior malleolus. Bulky plantar calcaneal spur again seen. XR/XR ankle RT min 3V IMPRESSION: Status post open reduction internal fixation bimalleolar fracture with fragments in near-anatomic alignment. Hardware intact.
== END 2021-02-24 07:17 | disposition home or self-care (01) ==
LOC: HO.HOSX 07:16
PROVIDERS: Visit Provider Physician Assistant
DX: S82.851D Displaced trimalleolar fracture of right lower leg, subsequent encounter for closed fracture with routine healing (principal)
CPT/HCPCS: 29405; 73610; 99212

== ENCOUNTER 2021-03-21 15:03 | Outpatient (REF) | payer MEDICARE, SELFPAY ==
[2021-03-21 15:16] LABS: Anion Gap 15 (12-20); Carbon Dioxide 23 mmol/L (22-29); Chloride 102 mmol/L (96-108); Potassium 3.9 mmol/L (3.3-5.1); Sodium 136 mmol/L (135-145)
== END 2021-03-21 15:04 | disposition home or self-care (01) ==
LOC: HO.LNP 15:03
PROVIDERS: Visit Provider Internal Medicine
DX: E87.1 Hypo-osmolality and hyponatremia (principal)
CPT/HCPCS: 80051

== ENCOUNTER 2021-03-24 07:55 | Outpatient (REF) | payer MEDICARE, SELFPAY ==
--- NOTE | ~2021-03-24 | XR_ITS ---
EXAMINATION: XR ANKLE, RIGHT CLINICAL INFORMATION: Right ankle pain. COMPARISON: 02/24/2021 TECHNIQUE: AP, lateral, and mortise views of the right ankle. FINDINGS: Partially threaded screws of the medial malleolus are intact. The medial malleolar fracture is ill-defined, likely due to partial healing. Partial healing is also suspected at the Hernandez B distal fibular fracture status post ORIF with lateral plate and screw fixation construct. Alignment appears near-anatomic. The ankle mortise is symmetric. No significant degenerative arthritis. Disuse osteopenia. Soft tissue swelling. Moderate-sized enthesopathic spur is present at the plantar fascial origin on the calcaneus. XR/XR ankle RT min 3V IMPRESSION: 1. Progressive healing of the bimalleolar fracture status post ORIF. 2. Disuse osteopenia.
== END 2021-03-24 07:56 | disposition home or self-care (01) ==
LOC: HO.HOSX 07:55
PROVIDERS: Visit Provider Physician Assistant
DX: M25.571 Pain in right ankle and joints of right foot (principal); Z98.890 Other specified postprocedural states; Z87.81 Personal history of (healed) traumatic fracture
CPT/HCPCS: 73610; 99212

== ENCOUNTER 2021-05-05 12:59 | Outpatient (REF) | payer MEDICARE, SELFPAY | END 2021-05-05 13:00 | disposition home or self-care (01) | LOC: HO.HOSX 12:59 | PROVIDERS: Visit Provider Physician Assistant | DX: Z47.89 Encounter for other orthopedic aftercare (principal); Z98.890 Other specified postprocedural states | CPT/HCPCS: 99212 ==

== ENCOUNTER 2021-07-01 10:45 | Outpatient (REF) | payer MEDICARE, SELFPAY ==
[2021-07-01 10:49] LABS: MANUAL DIFF FLAG NO
[2021-07-01 11:05] LABS: Basophils Percent Auto 0.5 % (0-2); Eosinophils Absolute Auto 0.1 X10*3/uL (0.0-0.4); Eosinophils Percent Auto 2.1 % (0-4); Hematocrit 36.9 % (37.0-47.0); Hemoglobin 11.8 g/dl (12.0-16.0); Imm Gran Abs Auto 0.01 X10*3/uL (0.00-0.03); Imm Gran Pct Auto 0.2 % (0.0-0.4); Lymphocytes Absolute Auto 2.6 X10*3/uL (1.2-4.9); Lymphocytes Percent Auto 44.6 % (20-40); Mean Corpuscular Hemoglobin 30.5 pg (27.0-33.0); Mean Corpuscular Volume 95.3 fL (80.0-98.0); Mean Platelet Volume 10.7 fL (9.4-12.3); Monocytes Absolute Auto 0.5 X10*3/uL (0.1-1.2); Monocytes Percent Auto 8.8 % (2-11); Neutrophils Absolute Auto 2.5 x10*3/uL (2.0-8.3); Neutrophils Percent Auto 43.8 % (45-73); Platelet Count 264 X10*3/uL (160-400); Red Blood Count 3.87 X10*6/uL (4.20-5.50); Red Cell Distribution Width 13.5 % (11.0-16.0); White Blood Count 5.8 X10*3/uL (4.8-10.8)
[2021-07-01 11:08] LABS: Appearance Urine HAZY; Color Urine YELLOW; Glucose Urine UA NEG (NEG); Leukocyte Esterase Urine NEG (NEG); Nitrite Urine NEG (NEG); PH 6.5 (5.0-8.0); Urine Blood NEG (NEG); Urine Ketones NEG (NEG); Urine Protein NEG (NEG-TRACE)
[2021-07-01 11:18] LABS: Alanine Aminotransferase 19 U/L (0-31); Albumin Level 4.5 g/dL (3.5-5.0); Alkaline Phosphatase 101 U/L (39-117); Anion Gap 12 (12-20); Aspartate Amino Transferase 19 U/L (5-31); Bilirubin Total 0.8 mg/dL (0.0-1.0); Blood Urea Nitrogen 23 mg/dL (9-16); Calcium 10.2 mg/dL (8.4-10.2); Carbon Dioxide 30 mmol/L (22-29); Chloride 102 mmol/L (96-108); Cholesterol 175 mg/dL; Estimated Glomerular Filt Rate 57; Glucose Fasting 99 mg/dL (60-99); HDL Cholesterol 75 mg/dL; LDL Cholesterol Calculated 80 mg/dl; Potassium 4.4 mmol/L (3.3-5.1); Sodium 140 mmol/L (135-145); Total Protein 7.2 g/dL (6.5-8.0); Triglycerides 100 mg/dL
[2021-07-01 11:19] LABS: Estimated Average Glucose 100 mg/dL; Hemoglobin A1c % 5.1 %
[2021-07-01 11:41] LABS: TSH reflex Free T4 2.33 uIU/mL (0.32-4.0)
[2021-07-01 11:54] LABS: Creatinine Urine 122.46 mg/dL
== END 2021-07-01 10:46 | disposition home or self-care (01) ==
LOC: HO.LNP 10:45
PROVIDERS: Visit Provider Internal Medicine
DX: I10 Essential (primary) hypertension (principal); R73.03 Prediabetes; E05.90 Thyrotoxicosis, unspecified without thyrotoxic crisis or storm; E87.1 Hypo-osmolality and hyponatremia; E89.0 Postprocedural hypothyroidism; E78.00 Pure hypercholesterolemia, unspecified
CPT/HCPCS: 80053; 80061; 81003; 82043; 83036; 84443; 85025

== ENCOUNTER 2021-07-08 15:41 | Outpatient (REF) | payer MEDICARE, SELFPAY ==
[2021-07-08 15:45] LABS: MANUAL DIFF FLAG NO
[2021-07-08 15:48] LABS: Basophils Percent Auto 0.4 % (0-2); Eosinophils Absolute Auto 0.1 X10*3/uL (0.0-0.4); Eosinophils Percent Auto 1.7 % (0-4); Hematocrit 35.1 % (37.0-47.0); Hemoglobin 11.2 g/dl (12.0-16.0); Imm Gran Abs Auto 0.01 X10*3/uL (0.00-0.03); Imm Gran Pct Auto 0.2 % (0.0-0.4); Lymphocytes Absolute Auto 1.5 X10*3/uL (1.2-4.9); Lymphocytes Percent Auto 32.9 % (20-40); Mean Corpuscular HGB Conc 31.9 g/dl (31.0-35.0); Mean Corpuscular Hemoglobin 30.7 pg (27.0-33.0); Mean Corpuscular Volume 96.2 fL (80.0-98.0); Mean Platelet Volume 10.9 fL (9.4-12.3); Monocytes Absolute Auto 0.5 X10*3/uL (0.1-1.2); Monocytes Percent Auto 10.2 % (2-11); Neutrophils Absolute Auto 2.5 x10*3/uL (2.0-8.3); Neutrophils Percent Auto 54.6 % (45-73); Platelet Count 230 X10*3/uL (160-400); Red Blood Count 3.65 X10*6/uL (4.20-5.50); Red Cell Distribution Width 13.4 % (11.0-16.0); White Blood Count 4.6 X10*3/uL (4.8-10.8)
== END 2021-07-08 15:42 | disposition home or self-care (01) ==
LOC: HO.LNP 15:41
PROVIDERS: Visit Provider Internal Medicine
DX: D72.820 Lymphocytosis (symptomatic) (principal)
CPT/HCPCS: 85025

== ENCOUNTER 2022-01-09 12:32 | Outpatient (REF) | payer MEDICARE, SELFPAY ==
[2022-01-09 12:44] LABS: Appearance Urine Clear; Color Urine Yellow; Glucose Urine UA Negative (Negative); Leukocyte Esterase Urine Trace (Negative); Nitrite Urine Negative (Negative); PH 6.5 (5.0-9.0); Specific Gravity - Urine 1.015 (1.005-1.025); UMIC TRIGGER UA YES; Urine Blood Negative (Negative); Urine Ketones Negative (Negative); Urine Protein Negative (Neg-Trace)
[2022-01-09 12:46] LABS: Bacteria Urine Trace (None Seen); Hyaline Casts Urine 0-2 /LPF (0-2); RBC Urine 0-2 /HPF (0-2)
[2022-01-09 12:51] LABS: Estimated Average Glucose 103 mg/dL; Hemoglobin A1c % 5.2 %
[2022-01-09 12:55] LABS: Alanine Aminotransferase 22 U/L (0-31); Albumin Level 4.4 g/dL (3.5-5.0); Alkaline Phosphatase 91 U/L (39-117); Aspartate Amino Transferase 24 U/L (5-31); Bilirubin Direct 0.5 mg/dL (0.0-0.5); Bilirubin Total 1.2 mg/dL (0.0-1.0); Cholesterol 170 mg/dL; Glucose Fasting 111 mg/dL (60-99); HDL Cholesterol 65 mg/dL; LDL Cholesterol Calculated 85 mg/dl; Triglycerides 101 mg/dL
[2022-01-09 14:47] LABS: Reflex LDLD? No
== END 2022-01-09 12:33 | disposition home or self-care (01) ==
LOC: HO.LNP 12:32
PROVIDERS: Visit Provider Internal Medicine
DX: N39.0 Urinary tract infection, site not specified (principal); R73.03 Prediabetes; E78.00 Pure hypercholesterolemia, unspecified
CPT/HCPCS: 80061; 80076; 81001; 82947; 83036; 87086

== ENCOUNTER 2022-02-05 14:13 | Outpatient (REF) | payer SELFPAY | END 2022-02-05 14:14 | disposition home or self-care (01) | LOC: HO.HAP 14:13 | PROVIDERS: Visit Provider Internal Medicine | DX: Z46.1 Encounter for fitting and adjustment of hearing aid (principal) | CPT/HCPCS: 92700 ==

== ENCOUNTER 2022-03-31 09:28 | Outpatient (REF) | payer MEDICARE, SELFPAY | END 2022-03-31 09:29 | disposition home or self-care (01) | LOC: HO.SH 09:28 | PROVIDERS: Visit Provider Internal Medicine | DX: Z46.1 Encounter for fitting and adjustment of hearing aid (principal); H90.6 Mixed conductive and sensorineural hearing loss, bilateral | CPT/HCPCS: 92557; 92567 ==

== ENCOUNTER 2022-03-31 12:00 | Outpatient (REF) | payer SELFPAY ==
--- NOTE | 2022-03-31 12:25 | MHC.AU.MED ---
Medical Clearance for Hearing Instrumentation Date: 03/31/22 Patient Name: Licha Holguin Date of : 1935 Primary Care Provider: Cesar Estrada MD We have seen your patient on 03/31/22 and have determined that they are a candidate for amplification (See accompanying report). Specifically, they would benefit from: Hearing aid use in both ears There is a statute that addresses Medical Evaluation Requirements prior to fitting a patient with a hearing aid. According to [place] statute 265 CMR:6.03(1), (a) General. Except as provided in 265 CMR 6.03(1)(b), a trim machine operator shall not sell a hearing aid unless the prospective user has presented to the trim machine operator a written statement signed by a licensed physician that states that the patient's hearing loss has been medically evaluated and the patient may be considered a candidate for a hearing aid. The medical evaluation must have taken place within the preceding six months. Please note: Due to the [place] Statute referenced above, we cannot accept a signature other than that of a licensed physician. LICENSED MENTAL HEALTH COUNSELOR and PA signatures cannot be accepted. I am in agreement with the above recommendation. There is no medical contraindication for hearing instrumentation. Physician Signature Date Physician Name (Printed)
--- NOTE | 2022-03-31 12:41 | MHC.AU.HA1 ---
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 Her right hearing aid is currently not working. Licha opted to purchase one hearing aid at this time to be fit on her left ear. Her current left hearing aid will be reprogrammed for her right ear to use in the meantime. Licha also chose to use her current acrylic ear molds. Discussed option to purchase new molds in future if needed if issues arise related to feedback, comfort, etc. Hearing Aid Prescription: Based on the individual?s shared listening needs, communication environments, dexterity, desire for connectivity, and personal preferences, the following prescription for amplification has been made: Right ear: Will reprogram old left hearing aid to use on right ear as old right hearing aid is not working Make, Model, Color: Phonak Cydney SP BTE Color: Beige Battery Size: 13 Type of Earmold/Dome/CShell/SlimTip: Acrylic full shell Left ear: Make, Model, Color: Phonak Antonella P50 UP BTE Color: Beige Battery Size: 675 Type of Earmold/Dome/CShell/SlimTip: Acrylic full shell Plan of Care: Patient wishes to purchase hearing aids as prescribed Action Taken/Action Needed: Hearing Instrument Fitting to be scheduled when materials arrive Primary Diagnosis: H90.6 Mixed Hearing Loss, Bilateral Signature: Provider: Avtar Thomas, [facility]
== END 2022-03-31 12:01 | disposition home or self-care (01) ==
LOC: HO.HAP 12:00
PROVIDERS: Visit Provider Internal Medicine
DX: Z46.1 Encounter for fitting and adjustment of hearing aid (principal); H90.6 Mixed conductive and sensorineural hearing loss, bilateral
CPT/HCPCS: 92590

== ENCOUNTER → 2022-04-13 09:35 | Outpatient (BNVA) | payer MEDICARE, SELFPAY | PROVIDERS: PCP Internal Medicine; Referring Provider Internal Medicine; Visit Provider Internal Medicine | DX: I49.3 Ventricular premature depolarization (principal); I10 Essential (primary) hypertension; E78.00 Pure hypercholesterolemia, unspecified | CPT/HCPCS: 93005; 99202 ==

== ENCOUNTER 2022-04-21 10:02 | Outpatient (REF) | payer SELFPAY ==
--- NOTE | 2022-04-21 11:46 | MHC.AU.HA2 ---
Hearing Instrument Fitting- Adult- Binaural Date of Visit: 04/21/22 Hearing Instruments Dispensed: Right Ear: Make, Model, Color, Serial Number: Andrea [place] SP BTE SN: [id number] Color: Beige Battery Size: 13 Earmold/Dome/CShell/SlimTip: Acrylic Full Shell Left Ear: Make, Model, Color, Serial Number: Andrea Antonella P50 UP BTE SN: [id number] Color: Beige Human Resources Leader Repair Warranty: 06/29/2025 Human Resources Leader Loss and Damage Warranty: 06/29/2025 [facility] Service Plan: OPTED OUT Battery Size: 675 Earmold/Dome/CShell/SlimTip: Acrylic full shell Summary of Fitting: Feedback subcontracts manager and real ear measurements performed on new left hearing aid. Appropriate match to target through 2kHz. SoundRecover On for better audibility of high frequencies. Comfortable at real ear settings. Reviewed care and use including changing battery, turning on/off, and volume control use. Reprogrammed old left hearing aid (Cydney SP BTE) for right ear and ran feedback subcontracts manager. Licha was happy with comfort and sound quality of both hearing aids. Discussed possibility of new silicone earmolds if concerns with feedback arise; although no significant feedback noted in office. Recommendations: A hearing instrument follow-up was scheduled. Recommendations (Other): *New right Antonella P50-UP hearing aid (Serial #: [id number]) was returned for credit as it was ordered in error* Diagnosis Code(s): Primary Diagnosis: H90.6 Mixed Hearing Loss, Bilateral Signature: Provider: Avtar Thomas, [facility]
== END 2022-04-21 10:03 | disposition home or self-care (01) ==
LOC: HO.HAP 10:02
PROVIDERS: Visit Provider Internal Medicine
DX: Z46.1 Encounter for fitting and adjustment of hearing aid (principal); H90.6 Mixed conductive and sensorineural hearing loss, bilateral
CPT/HCPCS: V5257

== ENCOUNTER 2022-07-07 12:19 | Outpatient (REF) | payer SELFPAY ==
[2022-07-07 12:22] LABS: MANUAL DIFF FLAG NO
[2022-07-07 13:18] LABS: Basophils Percent Auto 0.4 % (0-2); Eosinophils Absolute Auto 0.1 X10*3/uL (0.0-0.4); Eosinophils Percent Auto 1.3 % (0-4); Hematocrit 35.3 % (37.0-47.0); Hemoglobin 11.1 g/dl (12.0-16.0); Imm Gran Abs Auto 0.02 X10*3/uL (0.00-0.03); Imm Gran Pct Auto 0.4 % (0.0-0.4); Lymphocytes Absolute Auto 1.7 X10*3/uL (1.2-4.9); Lymphocytes Percent Auto 30.1 % (20-40); Mean Corpuscular HGB Conc 31.4 g/dl (31.0-35.0); Mean Corpuscular Hemoglobin 28.8 pg (27.0-33.0); Mean Corpuscular Volume 91.7 fL (80.0-98.0); Mean Platelet Volume 10.7 fL (9.4-12.3); Monocytes Absolute Auto 0.6 X10*3/uL (0.1-1.2); Monocytes Percent Auto 11.5 % (2-11); Neutrophils Absolute Auto 3.1 x10*3/uL (2.0-8.3); Neutrophils Percent Auto 56.3 % (45-73); Platelet Count 289 X10*3/uL (160-400); Red Blood Count 3.85 X10*6/uL (4.20-5.50); White Blood Count 5.5 X10*3/uL (4.8-10.8)
[2022-07-07 13:33] LABS: Alanine Aminotransferase 16 U/L (0-31); Albumin Level 4.1 g/dL (3.5-5.0); Alkaline Phosphatase 96 U/L (39-117); Anion Gap 13 (12-20); Aspartate Amino Transferase 19 U/L (5-31); Bilirubin Total 1.2 mg/dL (0.0-1.0); Blood Urea Nitrogen 19 mg/dL (9-16); Calcium 9.9 mg/dL (8.4-10.2); Carbon Dioxide 29 mmol/L (22-29); Chloride 103 mmol/L (96-108); Cholesterol 159 mg/dL; Estimated Glomerular Filt Rate > 60; Glucose Fasting 108 mg/dL (60-99); HDL Cholesterol 62 mg/dL; LDL Cholesterol Calculated 85 mg/dl; Potassium 4.4 mmol/L (3.3-5.1); Sodium 141 mmol/L (135-145); Total Protein 6.5 g/dL (6.5-8.0); Triglycerides 63 mg/dL
[2022-07-07 13:48] LABS: TSH reflex Free T4 0.25 uIU/mL (0.32-4.0)
[2022-07-07 13:50] LABS: Estimated Average Glucose 111 mg/dL; Hemoglobin A1c % 5.5 %
[2022-07-07 13:54] LABS: Appearance Urine Cloudy; Color Urine Yellow; Glucose Urine UA Negative (Negative); Leukocyte Esterase Urine Small (1+) (Negative); Nitrite Urine Negative (Negative); UMIC TRIGGER UACC YES; Urine Blood Negative (Negative); Urine Ketones Negative (Negative); Urine Protein Trace mg/dL (Neg-Trace)
[2022-07-07 13:57] LABS: Bacteria Urine 3+ (None Seen); Hyaline Casts Urine 0-2 /LPF (0-2); RBC Urine 0-2 /HPF (0-2); Squamous Epithelial Cell Urine >20 /HPF (0-2); UACC Culture Trigger YES
[2022-07-07 14:27] LABS: Creatinine Urine 146.57 mg/dL; Microalbum/Creatinine Ratio Ur 38.2 ug/mg cr
[2022-07-07 14:56] LABS: Free T4 (Free Thyroxine) 1.13 ng/dL (0.71-1.85)
== END 2022-07-07 12:20 | disposition home or self-care (01) ==
LOC: HO.LNP 12:19
PROVIDERS: Visit Provider Internal Medicine
DX: Z00.00 Encounter for general adult medical examination without abnormal findings (principal); I10 Essential (primary) hypertension; R73.09 Other abnormal glucose; E05.90 Thyrotoxicosis, unspecified without thyrotoxic crisis or storm; R82.90 Unspecified abnormal findings in urine
CPT/HCPCS: 80053; 80061; 81001; 82043; 83036; 84439; 84443; 85025; 87086

== ENCOUNTER 2022-10-13 10:25 | Outpatient (AMB) | payer MEDICARE, SELFPAY ==
--- NOTE | 2022-10-13 10:25 | A.OFFVIS_ITS ---
Intake Vital Signs 10/13/22 10:32 Height 5 ft 3 in Weight 139 lb 5.314 oz BMI 24.7 BP 132/68 Blood Pressure Location Lt brachial Position Sitting Pulse 104 H Intake Visit Reasons: f/up per hs Intake Note: follow up Software Sales Representative Required: No Accompanied by: Daughter Allergies No Known Allergies [No Known Allergies*] Allergy (Verified 10/13/22 10:33) Medication List - Last Reconciled 10/13/22 by Louis Puentes MD apixaban (Eliquis) 5 mg PO BID atorvastatin 10 mg PO DAILY estradiol 0.01%(0.1mg/gram) 1 g vaginal SUWE hydralazine 25 mg See Protocol PO BID 30 days latanoprost 0.005% 1 drp ophthalmic-Right BEDTIME levothyroxine 100 mcg PO DAILY metoprolol succinate ER 50 mg PO BID nifedipine ER 30 mg See Protocol PO DAILY omeprazole 20 mg PO DAILY valsartan 320 mg PO DAILY HPI HPI Comments History of Present Illness Details Licha returns for follow-up. Recently seen in consultation regarding possible PVCs but at that time patient did not wish to follow-up here and stated that she would just follow up with her own PCP. In the interim, it seems that a routine EKG had shown atrial fibrillation rapid rate and hence she has been referred back. Patient herself has absolutely no symptoms. She does not feel any palpitations. No other cardiac issues in the past like coronary disease myocardial infarction or cardiomyopathy. Beta-estevan dose has been increased by PCP. [facility] Medical History (Updated 10/13/22 @ 10:45 by Louis Puentes MD) Alcohol intoxication Closed trimalleolar fracture of ankle Fall High cholesterol HTN (hypertension) Hyponatremia Hypothyroid Vaso-vagal reaction Family History Father Angina at rest Social History Household Members: Spouse Housing: House Do you presently have visiting nurse or other home services: No Alcohol intake: current Alcohol intake frequency: a few times a week Patient Tobacco Use Status: Never used Tobacco Current occupational status: retired Current occupation: Rt handed Review of Systems Const Denies weakness ENT Denies dizziness Card Denies chest pain, Denies chest pain with activity, Denies syncope, Denies rapid heart rate, Denies pedal edema, Denies edema, Denies leg edema, Denies lightheadedness, Denies palpitations, Denies dyspnea, Denies dyspnea on exertion and Denies orthopnea Resp Denies cough, Denies dyspnea and Denies dyspnea on exertion GI Denies hematochezia and Denies change in stool character Musc Denies abnormal gait, Denies muscle cramps, Denies muscle weakness, Denies numbness, Denies radiating pain into limb and Denies tingling Neuro Denies abnormal gait, Denies dizziness, Denies syncope, Denies numbness, Denies tingling and Denies weakness Endo Denies palpitations Physical Exam Vital Signs: Last Vital Signs Pulse 104 H 10/13/22 10:32 BP 132/68 10/13/22 10:32 BMI result Body Mass Index 24.7 Const General: comfortable and no acute distress Orientation/consciousness: patient oriented x3 HEENT Other: Unremarkable Head: Yes normal to inspection Neck Neck: Yes normal visual inspection Chest Chest palpation & inspection: normal inspection of the chest Resp Auscultation: clear to auscultation bilaterally Cardio Palpation: normal PMI Heart sounds: S1 normal heart sound present, S2 normal heart sound present, no gallops, no murmurs and no rubs GI Palpation (GI): Soft to palpation Back/Spine/Pelvis Other: unremarkable Skin General skin exam: no rashes or lesions noted Neuro General: patient oriented x3 Extrem General: Yes normal to inspection Psych Mental Status: mental status grossly normal Assessment & Plan Assessment & Plan (1) Atrial fibrillation with rapid ventricular response: Code(s): I48.91 - Unspecified atrial fibrillation Plan: EKG from primary care physician's office shows atrial fibrillation rapid rate at 143/Min. Today, she slightly fast. Clinically has got absolutely no symptoms. We will add digoxin to her regimen. Already on anticoagulation. Discussed about an echocardiogram and Holter for further evaluation and they seem to be agreeable. We can get these and we can adjust the medications further based on findings. Continue anticoagulation. Last creatinine is 0.87. (2) HTN (hypertension): Code(s): I10 - Essential (primary) hypertension Plan: On numerous medications including metoprolol, nifedipine, valsartan, hydralazine. No changes made. Blood pressure today seems okay. Plan Discussed with family who came for appointment. Orders: Orders CA echo transthoracic complete Today I48.91 - Unspecified atrial fibrillation ECG 3 day holter monitor Today I48.91 - Unspecified atrial fibrillation Medications: New digoxin (Digox) 125 mcg PO DAILY 90 tabs 3RF I48.91 - Unspecified atrial fibrillation Coding Level of Care Code Est Pt Level 4 (48081) Diagnoses Atrial fibrillation with rapid ventricular response I48.91 HTN (hypertension) I10
[2022-10-13 10:32] VITALS: BP 132/68; PULSE 104; BMI 24.7
== END 2022-10-13 10:57 | disposition home or self-care (01) ==
PROVIDERS: Visit Provider Internal Medicine
DX: I48.91 Unspecified atrial fibrillation (principal); I10 Essential (primary) hypertension
CPT/HCPCS: 99214

== ENCOUNTER → 2022-10-13 10:25 | Outpatient (BNVA) | payer SELFPAY | PROVIDERS: Visit Provider Internal Medicine | DX: I48.91 Unspecified atrial fibrillation (principal); I10 Essential (primary) hypertension; Z79.899 Other long term (current) drug therapy | CPT/HCPCS: 99212 ==

== ENCOUNTER 2022-10-14 15:01 | Outpatient (REF) | payer SELFPAY | END 2022-10-14 15:02 | disposition home or self-care (01) | LOC: HO.HAP 15:01 | PROVIDERS: Visit Provider Internal Medicine | DX: Z46.1 Encounter for fitting and adjustment of hearing aid (principal) | CPT/HCPCS: 92592 ==

== ENCOUNTER 2022-10-14 15:47 | Outpatient (REF) | payer SELFPAY | END 2022-10-14 15:48 | disposition home or self-care (01) | LOC: HO.HAP 15:47 | PROVIDERS: Visit Provider Internal Medicine | DX: Z46.1 Encounter for fitting and adjustment of hearing aid (principal); H90.3 Sensorineural hearing loss, bilateral | CPT/HCPCS: 92592 ==

== ENCOUNTER → 2022-11-16 07:56 | Outpatient (REF) | payer MEDICARE, SELFPAY ==
--- NOTE | 2022-11-16 08:00 | CA_ITS ---
Transthoracic Echocardiogram Patient (Last, First, Middle): Licha Holguin, Gender: Female Date of : 1935 Age: 87 Procedure Date: 11/16/2022 Procedure Type: Transthoracic Echocardiogram Location: OP Height: 160.02 cm Weight: 61.24 kg BSA: 1.64 m2 Heart Rate: 75 bpm BP: 145 / 70 mmHg Research And Development Tester: LLOYD Hernandez MD: Louis Puentes MD Plant Engineer: Yeison Khanna MD Symptoms: I48.91 - Unspecified atrial fibrillation Study Quality: Fair ECG Rhythm: Atrial Fibrillation Conclusions: - 1. Normal LV ejection fraction 55-60% 2. Moderate left atrial enlargement next 3. Trivial aortic and mild mitral regurgitation noted 4. Normal RV systolic pressure 5. No pericardial effusion Findings Left Ventricle Normal left ventricular size, thickness, and systolic function. The visually estimated ejection fraction is between 55-60%. Diastolic function is indeterminate on the basis of available data. Right Ventricle Normal right ventricular cavity size and systolic function. Atria The left atrium is moderately dilated. There is no evidence of interatrial shunt. The right atrium is mildly dilated. Aortic Valve There is mild calcification of the aortic valve. There is no aortic valve stenosis. There is trace (trivial) aortic valve regurgitation. Mitral Valve There is mild anterior and posterior mitral leaflet thickening. There is mild mitral annular calcification. There is mild mitral valve regurgitation. There is no mitral valve stenosis. Pulmonic Valve The pulmonic valve was not well visualized. Tricuspid Valve Likely normal tricuspid valve structure and function. There is mild tricuspid valve regurgitation. The right ventricular systolic pressure is normal. The right ventricular systolic pressure is 25 mmHg. Normal right atrial pressure. There is no evidence of pulmonary hypertension. Great Vessels All visible segments of the aorta are normal in size. The pulmonary artery was not well visualized. There is no dilatation of the ascending aorta measuring 3.40 cm. Venous The inferior vena cava is normal in size and collapses greater than 50% with inspiration. Pericardium/Pleural There is no evidence of pericardial effusion. Prior Study Comparison no previous study in the last 5 years for comparison Measurements 2D Linear Measurements IVSd: 1.10 0.6-0.9/0.6-1.0 cm LVIDd: 4.10 3.9-5.3/4.2-5.9 cm LVIDd Index: 2.50 2.4-3.2/2.2-3.1 cm/m2 LVIDs: 2.20 2.0-3.6 cm LVPWd: 0.90 0.7-1.1 cm LA Diam: 4.40 2.7-3.8/3.0-4.0 cm LAIDs Index: 2.68 1.5-2.3 cm/m2 LV Mass: 164.38 67-162/88-224 g LV Mass Index: 100.23 43-95/49-115 g/m2 LVOT Diam: 1.70 3.0+(-)1.3 cm 2D Systolic Function EF 4C: 54.90 >55% EF 2C: 56.00 >55% EF BiP: 55.70 >55% Mitral Valve MV Pk E: 1.44 MV Decel Time: 153.00 E'Lateral: 9.73 E'Medial: 6.49 E/E' Med: 22.20 E/E' Lat: 14.80 PHT: 45.00 MVA PHT: 4.89 Decel [place]: 9.90 Aortic Valve AoV Pk Izaiah: 1.44 AoV Mn Izaiah: 1.05 AoV VTI: 0.31 AoV Pk Grad: 8.00 Aov Mn Grad: 5.00 KRISTOPHER Cont.VTI: 1.16 LVOT LVOT Pk Izaiah: 0.77 LVOT Mn Izaiah: 0.56 LVOT VTI: 0.16 LVOT Pk Grad: 2.00 LVOT Mn Grad: 1.00 LVOT Diam: 1.70 LVOT Area: 2.27 Diastolic Function MV Pk E: 1.44 E'Medial: 6.49 E/E' Med: 22.20 E' Laterial: 9.73 E/E' Lat: 14.80 Right Ventricle TAPSE (mm): 15.90 TVS' Izaiah: 10.10 Tricuspid Valve TR Pk Izaiah: 2.09 TR Pk Grad: 17.00 RA Press: 8.00 RVSP: 25.00 Great Vessels Aorta Sinus of Valsalva: 3.00 2.0-3.5 cm Ao Asc: 3.40 2.1-3.4 cm Pulmonary Valve PV Pk Izaiah: 1.03 Peak PV Grad: 4.00 Updated in Other Vendor System with Status of Final Yeison Khanna MD electronically signed on 11/17/2022 12:36:55 PM with status of Final
--- NOTE | 2022-11-16 08:00 | HM_ITS ---
Conclusion: 1. Patient was monitored for total period of 3 days 2. Baseline was atrial fibrillation with average heart of 77 beats per minute with good rate control 3. No significant pauses 4. Frequent PVCs with total burden of 5.1% 5. No patient reported events MTDD
== END ==
LOC: HO.CARD 07:56
PROVIDERS: PCP Internal Medicine; Visit Provider Internal Medicine
DX: I48.91 Unspecified atrial fibrillation (principal)
CPT/HCPCS: 93242; 93306

== ENCOUNTER → 2022-11-16 08:00 | Outpatient (BNV) | payer MEDICARE, SELFPAY | PROVIDERS: PCP Internal Medicine; Visit Provider Internal Medicine Cardiovascular Disease | DX: I48.91 Unspecified atrial fibrillation (principal) | CPT/HCPCS: 93244; 93306 ==

== ENCOUNTER 2022-12-21 08:30 | Outpatient (AMB) | payer MEDICARE, SELFPAY ==
[2022-12-21 08:32] VITALS: BP 132/72; PULSE 98; BMI 24.8
--- NOTE | 2022-12-21 08:32 | A.OFFVIS_ITS ---
Intake Vital Signs 12/21/22 08:32 Height 5 ft 3 in Weight 140 lb 3.424 oz BMI 24.8 BP 132/72 Blood Pressure Location Lt brachial Position Sitting Pulse 98 Pulse Source Pulse Oximeter Intake Visit Reasons: s/p echo/ holter Intake Note: s/b/ echo/ holter National Account Director Required: No [employer]: Cash[employer] Present Accompanied by: Daughter Allergies No Known Allergies [No Known Allergies*] Allergy (Verified 12/21/22 08:38) Medication List - Last Reconciled 12/21/22 by Cristina Steiner NP-C apixaban (Eliquis) 5 mg PO BID atorvastatin 10 mg PO DAILY digoxin (Digox) 125 mcg PO DAILY estradiol 0.01%(0.1mg/gram) 1 g vaginal SUWE hydralazine 25 mg See Protocol PO BID 30 days latanoprost 0.005% 1 drp ophthalmic-Right BEDTIME levothyroxine 100 mcg PO DAILY metoprolol succinate ER 50 mg PO BID nifedipine ER 30 mg See Protocol PO DAILY omeprazole 20 mg PO DAILY valsartan 320 mg PO DAILY HPI s/p echo/ holter HPI Details Licha is an 87-year-old female past medical history of hypertension, hyperlipidemia, PVCs who was recently found to have asymptomatic atrial fibrillation and underwent an echocardiogram and Holter monitor. She now presents for follow-up. Today she reports that she has been feeling very well with no concerning symptoms. She denies any heart palpitations, new shortness of breath. She has good activity tolerance. No chest discomfort, presyncope, syncope, falls. No PND, orthopnea or edema. She takes her medications as directed. No bleeding issues reported. Daughter is present. [facility] Medical History Hyponatremia Hypothyroid Alcohol intoxication Fall Closed trimalleolar fracture of ankle High cholesterol Vaso-vagal reaction HTN (hypertension) Family History Father Angina at rest Social History Household Members: Spouse Housing: House Do you presently have visiting nurse or other home services: No Alcohol intake: current Alcohol intake frequency: a few times a week Patient Tobacco Use Status: Never used Tobacco Current occupational status: retired Current occupation: Rt handed Review of Systems Const All systems reviewed & are unremarkable except as noted in HPI and below ENT Denies dizziness Card Denies chest pain, Denies chest pain at rest, Denies chest pain with activity, Denies rapid heart rate, Denies pedal edema, Denies edema, Denies leg edema, Denies lightheadedness, Denies palpitations, Denies dyspnea, Denies dyspnea on exertion and Denies orthopnea Resp Denies cough, Denies dyspnea and Denies dyspnea on exertion GI Denies hematochezia and Denies change in stool character Musc Denies abnormal gait, Reports limited range of motion, Reports muscle cramps, Denies muscle weakness, Denies numbness, Denies radiating pain into limb, Denies stiffness and Denies tingling Neuro Denies abnormal gait, Denies dizziness, Denies numbness and Denies tingling Endo Denies palpitations Physical Exam Vital Signs: Last Vital Signs Pulse 98 12/21/22 08:32 BP 132/72 12/21/22 08:32 BMI result Body Mass Index 24.8 Const General: cooperative, healthy appearing, comfortable and no acute distress Orientation/consciousness: patient oriented x3 Neck Neck: Yes normal visual inspection Resp Effort & Inspection: normal respiratory effort Auscultation: clear to auscultation bilaterally, no crackles, no rales, no rhonchi and no wheezes Cardio Jugular venous distension: no JVD Rate: regular rate Rhythm: abnormal rhythm Heart sounds: S1 normal heart sound present, S2 normal heart sound present, no gallops, no murmurs and no rubs Neuro General: patient oriented x3 Extrem General: Yes normal to inspection Psych Appearance: grossly normal Mental Status: mental status grossly normal Speech and movement: Normal speech and movement present Assessment & Plan Assessment & Plan (1) Atrial fibrillation with rapid ventricular response: Code(s): I48.91 - Unspecified atrial fibrillation Plan: Newer finding of atrial fibrillation, asymptomatic. Treated for heart rate control with use of metoprolol and then digoxin added last visit. Holter monitor done on 11/16/2022 for 3 days shows atrial fibrillation, heart rate 77, PVCs 5.1% of the time. She has a known history of PVCs and does not feel any heart palpitations. She is on Eliquis for anticoagulation. No bleeding issues reported. Mild anemia noted on last CBC. Will update labs including digoxin level, CBC and BMP. Cardiology follow-up in 6 months, sooner if needed. They are requesting a visit for July as the weather will be overall better than June. (2) HTN (hypertension): Code(s): I10 - Essential (primary) hypertension Qualifiers: Hypertension type: primary hypertension Qualified Code(s): I10 - Essential (primary) hypertension Plan: Well controlled at this time. No medication changes made. (3) PVC (premature ventricular contraction): Code(s): I49.3 - Ventricular premature depolarization Plan: Known history of PVCs. Frequent PVCs noted on Holter monitor, 5.1% of time. Echocardiogram done 11/16/2022 shows EF 55-60%, moderate left atrial enlargement. Continue current dose of metoprolol. Patient denies any heart palpitations. Orders: Orders Basic Metabolic Panel Today I48.91 - Unspecified atrial fibrillation Digoxin Today I48.91 - Unspecified atrial fibrillation Complete Blood Count Auto Diff Today I48.91 - Unspecified atrial fibrillation Coding Level of Care Code Est Pt Level 4 (07910) Diagnoses Atrial fibrillation with rapid ventricular response I48.91 Primary hypertension I10 Hypertension type: primary hypertension PVC (premature ventricular contraction) I49.3 Time Spent (min) 28
== END 2022-12-21 09:07 | disposition home or self-care (01) ==
PROVIDERS: PCP Internal Medicine; Referring Provider Internal Medicine; Visit Provider Nurse Practitioner Family
DX: I48.91 Unspecified atrial fibrillation (principal); I10 Essential (primary) hypertension; I49.3 Ventricular premature depolarization
CPT/HCPCS: 99214

== ENCOUNTER → 2022-12-21 08:30 | Outpatient (BNVA) | payer MEDICARE, SELFPAY | PROVIDERS: PCP Internal Medicine; Referring Provider Internal Medicine; Visit Provider Nurse Practitioner Family | DX: I48.91 Unspecified atrial fibrillation (principal); I10 Essential (primary) hypertension; I49.3 Ventricular premature depolarization | CPT/HCPCS: 99212 ==

== ENCOUNTER 2023-01-18 10:53 | Outpatient (REF) | payer MEDICARE, SELFPAY ==
[2023-01-18 12:55] LABS: TSH reflex Free T4 0.14 uIU/mL (0.32-4.0)
[2023-01-18 13:58] LABS: Free T4 (Free Thyroxine) 1.42 ng/dL (0.71-1.85)
== END 2023-01-18 10:54 | disposition home or self-care (01) ==
LOC: HO.LNP 10:53
PROVIDERS: Visit Provider Internal Medicine
DX: E05.90 Thyrotoxicosis, unspecified without thyrotoxic crisis or storm (principal)
CPT/HCPCS: 84439; 84443

== ENCOUNTER 2023-07-13 13:46 | Inpatient (IN) | payer MEDICARE, SELFPAY ==
[2023-07-13] VITALS (9 sets, daily range): BP systolic 155–180; BP diastolic 70–92; PULSE 66–79; RESP 15–20; TEMP 36.3–37; O2SAT 96–100; BMI 25.9
--- NOTE | 2023-07-13 15:01 | ED_ITS ---
HPI - General Adult General Chief complaint: Recheck/Abnormal Lab/Rx Stated complaint: Needs blood transfusion Time Seen by Provider: 07/13/23 15:53 Source: patient Mode of arrival: ambulatory Limitations: no limitations History of Present Illness HPI narrative: An 87-year-old female who presents emergency department with daughter for evaluation. She had routine outpatient labs done today preparing for her upcom ing physical next week. She was advised by her primary care doctor to come to the emergency department for blood transfusion as she was noted to be anemic. She denies any history of anemia or blood transfusions in the past. She does state that she is taking Eliquis, believes that she started this approximately 6 months ago due to atrial fibrillation. 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 She denies any obvious bleeding, hematuria, hematochezia, melena. Denies any chest pain, nausea, vomiting, abdominal pain. Related Data Home Medications ?Medication ?Instructions ?Recorded ?Confirmed atorvastatin 10 mg tablet 10 mg PO DAILY 02/08/21 07/13/23 estradiol 0.01% (0.1 mg/gram) 1 g vaginal SUWE 02/08/21 07/13/23 vaginal cream valsartan 320 mg tablet 320 mg PO DAILY@1200 02/08/21 07/13/23 nifedipine 30 mg tablet,extended 30 mg PO DAILY@0900 04/13/22 07/13/23 release 24 hr omeprazole 20 mg capsule,delayed 20 mg PO DAILY@0630 04/13/22 07/13/23 release apixaban 5 mg tablet (Eliquis) 5 mg PO BID 10/13/22 07/13/23 metoprolol succinate 50 mg 50 mg PO BID 10/13/22 07/13/23 tablet,extended release 24 hr digoxin 125 mcg (0.125 mg) tablet 125 mcg PO DAILY@1800 07/13/23 07/13/23 (Digox) levothyroxine 75 mcg tablet 75 mcg PO DAILY@0607/13/23 07/13/23 Previous Rx's ?Medication ?Instructions ?Recorded hydralazine 25 mg tablet 25 mg PO BID 30 days #60 tabs 02/13/21 Allergies Allergy/AdvReac Type Severity Reaction Status Date / Time No Known Allergies Allergy Verified 07/13/23 15:03 [No Known Allergies*] Review of Systems Review of Systems: Yes all other systems are reviewed and are negative [facility] Past Medical History Attestation statement: The following information was validated with the patient. Source: old records reviewed Medical History Hyponatremia Hypothyroid Alcohol intoxication Fall Closed trimalleolar fracture of ankle High cholesterol Vaso-vagal reaction HTN (hypertension) Family History Family History Father Angina at rest Social History Social History Household Members: Spouse Housing: House Do you presently have visiting nurse or other home services: No Alcohol intake: current Alcohol intake frequency: a few times a week Patient Tobacco Use Status: Never used Tobacco Smoked in Last 30 Days: No Advance Directives: No Advance Directives Information Provided: No Nutrition Risks: No Nutritional Risk Current occupational status: retired Current occupation: Rt handed Physical Exam ED Vital Signs: Vital Signs - 24 hr 07/13/23 15:00 07/13/23 15:42 07/13/23 16:51 Temperature 97.6 F 98.6 F 97.8 F Pulse Rate 78 76 79 Respiratory Rate 18 16 18 Blood Pressure 160/70 H 155/70 H 165/83 H Pulse Oximetry 98 100 98 Oxygen Delivery Method Room Air Room Air Room Air BMI result Body Mass Index 25.9 Appearance: Alert.?Oriented to person, place and time. No acute distress.?Normal affect. Eyes: Pupils equal, round and reactive to light.? ENT: Pharynx normal.?? Neck: Normal inspection.? Neck supple.?? CVS: Heart sounds normal. Normal heart rate and rhythm.? Pulses normal.?? Respiratory: No respiratory distress.? Lung sounds clear to auscultation bilaterally?? Abdomen: Soft and non-tender. Normoactive bowel sounds. Skin: Skin warm and dry.? Normal skin color.? ? Extremities: 2+ bilateral lower extremity edema.? No calf ttp? Neuro: Moves all extremities spontaneously. Sensation intact bilaterally. Ambulates with normal steady gait. Course Course Course Narrative: RME: 87-year-old female hx of HTN, afib, PVC here w/ daughter for eval of abnormal lab results. Received call from Regarding results from blood work obtained this morning. H&H 6.8/24.6. She was advised to come to the ED for transfusion. Endorses increased fatigue and weak. Denies hematuria, melena, hematochezia, chest pain, SOB, dizziness. labs obtain this morning. Type and screen ordered. Full HPI, ROS and PE to be performed by the primary ED provider. Medications Administered Generic Name Dose Route Start Last Admin Trade Name Freq PRN Reason Stop Dose Admin Omeprazole 20 mg 07/13/23 17:40 07/13/23 21:16 Omeprazole 20 Mg Capsule. PO Not Given BID@0630,1630 CHACHO Sodium Chloride 3 ml 07/14/23 00:00 07/14/23 00:16 0.9 % Sodium Chloride Flush 3 Ml Syringe IVFLUSH Not Given QSHIFT CHACHO Discontinued Medications Generic Name Dose Route Start Last Admin Trade Name Freq PRN Reason Stop Dose Admin Sodium Chloride 100 mls @ 100 mls/hr 07/13/23 16:20 07/13/23 21:17 Ns IV 07/13/23 17:19 Infused ONCE ONE Infusion Sodium Chloride 100 mls @ 100 mls/hr 07/13/23 16:20 07/14/23 00:16 Ns IV 07/13/23 17:19 100 mls/hr ONCE ONE Administration Medical Decision Making Medical Decision Making [facility] Narrative: Patient is an 87-year-old female with past medical history of hypothyroidism, hy perlipidemia, hypertension, atrial fibrillation on Eliquis presenting to emergency department for evaluation of anemia detected on outpatient labs as per HPI. Overall she appears well, nontoxic, afebrile. She is noted to have microcytic anemia with H&H of 6.8/24.6, no thrombocytopenia. CMP was overall unremarkable. TSH is noted to be significantly elevated 20.21, with normal free T4, denies any recent changes to her levothyroxine dosage. On digital rectal examination is noted to have blood within the stool. Type and screen was obtained, blood transfusion consent was reviewed thoroughly with patient and her daughter, and consent for transfusion was obtained signed and placed in the chart. 2 units PRBCs were ordered. Plan for admission to medicine service Differential Diagnosis Differential Diagnoses: The differential diagnosis associated with the presentation includes (Iron deficiency anemia, GIB, microcytic anemia) Admission/Observation Consideration of admission/observation: Escalation of care including admission/observation considered (See narrative above) Consult Healthcare Provider Management of the patient was discussed with: Hospitalist (RYAN Yu) Lab Data MDM Lab Attestation statement: I reviewed the patient's lab results. (See narrative above) Labs: Lab Results 07/13/23 07/13/23 Range/Units 15:21 16:34 Stool Occult Blood POSITIVE (NEGATIVE) Blood Type B Negative Antibody Screen NEGATIVE Crossmatch See Detail Independent Interpretation I performed an independent interpretation of an: EKG Interpretation: Rate:72 Rhythm:? Atrial fibrillation, RBBB Normal QRS complex.?? ST T wave :??No ST elevation, no ST depression qTC:422 prior studies:? The study has been interpreted contemporaneously by me. Independent Historian Clinical information obtained from an independent historian. History obtained from or confirmed by: Other (Daughter present who confirms history) External Record Review External record reviewed: Prior outpatient labs Chronic Conditions Patient?s care impacted by: Hypertension and Other (Atrial fibrillation on long- term anticoagulation) Critical Care Time Critical Care Time Critical Care Time: Yes Total Critical Care Time: 40 Attestation: I personally attest to this critical care time spent taking care of the patient exclusive of all other billable procedures was approximately 40 minutes including initial evaluation of patient, ordering tests, medical consultation, documentation, re-evaluation. Discharge Plan Discharge Clinical Impression: Acute GI bleeding, Anemia Patient Disposition: Admitted As Inpatient Interventions: Admission Worksheet (ED) Last Done: 07/14/23 00:27
--- NOTE | 2023-07-13 15:04 | ECG_ITS ---
Test Reason : AFIB Blood Pressure : / mmHG Vent. Rate : 072 BPM Atrial Rate : 000 BPM P-R Int : 000 ms QRS Dur : 118 ms QT Int : 386 ms P-R-T Axes : 000 050 -19 degrees QTc Int : 422 ms Atrial fibrillation Low voltage QRS Right bundle branch block Abnormal ECG When compared with ECG of 08-FEB-2021 00:59, Atrial fibrillation has replaced Sinus rhythm Right bundle branch block is now Present Referred By: Damaris Shaver Electronically Signed By:LUIS EDUARDO LUNDY MD
--- NOTE | 2023-07-13 15:44 | PC.NURSE ---
Pt presents from home- pt stated she has been feeling weak and dizziness and not herself for a week- denies any heamtemsis/melena
[2023-07-13 16:44] LABS: OBS Int Ctl Valid YES; OBS1 POSITIVE (NEGATIVE)
--- NOTE | 2023-07-13 16:57 | PM.IMHP ---
History of Present Illness Date of Service: 07/13/23 Chief Complaint: weakness 87-year-old woman presenting to the ER with weakness over the last couple of days. She is legally blind, lives alone but her daughter lives next door. She is pretty active in her home and able to do some cooking and cleaning. She reported feeling unwell more recently. She was started on Eliquis 07/14/2022 for atrial fibrillation. She denied any recent bright red blood per rectum or black stools. She denied chest pain, shortness for breath, nausea, vomiting, diarrhea. She did report some increase in swelling in her lower extremities over the last few months. In the ER EKG showed atrial fibrillation with right bundle branch block, hemoglobin 6.8, hematocrit 24.6, TSH 20.21, urine culture slightly positive, stool occult positive. To orders packed red blood cells was ordered and the patient received 2 L of IV fluids. She will be admitted for further management and treatment of acute GI bleed with acute blood loss anemia. Review of Systems Review of Systems: Denies any recent fever chills or decrease in appetite respiratory denies any shortness of breath or cough cardiovascular denied chest pain gastrointestinal denies any dysphagia abdominal pain nausea vomiting or diarrhea genitourinary denies any dysuria frequency or hematuria musculoskeletal denies any joint pain or swelling neuropsych denies any weakness or seizures all other systems reviewed are negative [facility] Medical History Hyponatremia Hypothyroid Alcohol intoxication Fall Closed trimalleolar fracture of ankle High cholesterol Vaso-vagal reaction HTN (hypertension) Family History Father Angina at rest Social History Household Members: Spouse Housing: House Do you presently have visiting nurse or other home services: No Alcohol intake: current Alcohol intake frequency: a few times a week Patient Tobacco Use Status: Never used Tobacco Smoked in Last 30 Days: No Advance Directives: No Advance Directives Information Provided: No Current occupational status: retired Current occupation: Rt handed Meds Allergies Allergy/AdvReac Type Severity Reaction Status Date / Time No Known Allergies Allergy Verified 07/13/23 15:03 [No Known Allergies*] Active Medications: Current Medications Sodium Chloride (Ns) 100 mls @ 100 mls/hr IV ONCE ONE Stop: 07/13/23 17:19 Sodium Chloride (Ns) 100 mls @ 100 mls/hr IV ONCE ONE Stop: 07/13/23 17:19 Home Medications ?Medication ?Instructions ?Recorded ?Confirmed ?Last Taken ?Type atorvastatin 10 mg tablet 10 mg PO DAILY 02/08/21 12/21/22 02/07/21 History estradiol 0.01% (0.1 mg/gram) 1 g vaginal SUWE 02/08/21 12/21/22 02/05/21 History vaginal cream latanoprost 0.005 % eye drops 1 drp ophthalmic-Right BEDTIME 02/08/21 12/21/22 02/07/21 History levothyroxine 100 mcg tablet 100 mcg PO DAILY 02/08/21 12/21/22 02/07/21 History valsartan 320 mg tablet 320 mg PO DAILY 02/08/21 12/21/22 02/07/21 History nifedipine 30 mg tablet,extended 30 mg PO DAILY 04/13/22 12/21/22 Unknown History release 24 hr omeprazole 20 mg capsule,delayed 20 mg PO DAILY 04/13/22 12/21/22 Unknown History release apixaban 5 mg tablet (Eliquis) 5 mg PO BID 10/13/22 12/21/22 Unknown History metoprolol succinate 50 mg 50 mg PO BID 10/13/22 12/21/22 Unknown History tablet,extended release 24 hr Physical Exam Vital Signs and Narrative: Vital Signs: Last Vital Signs Temp 97.8 F 07/13/23 16:51 Pulse 79 07/13/23 16:51 Resp 18 07/13/23 16:51 BP 165/83 H 07/13/23 16:51 Pulse Ox 98 07/13/23 16:51 O2 Del Method Room Air 07/13/23 16:51 BMI result Body Mass Index 25.9 Appearing in no acute distress, legally blind head is normocephalic atraumatic eyes pupils are PERRLA sclera is anicteric mouth throat mucous membranes are intact and moist neck is supple no lymphadenopathy, no JVD noted lung sounds are clear to auscultation heart regular rate rhythm, clear S1, S2, Bilateral LE edema positive bowel sounds, abdomen is soft, nontender neuro patient is alert x3, no focal deficits Results Labs Labs: Laboratory Results - last 24 hr 07/13/23 07/13/23 15:21 16:34 Stool Occult Blood POSITIVE Blood Type B Negative Antibody Screen NEGATIVE Crossmatch See Detail Assessment and Plan (1) Atrial fibrillation with rapid ventricular response: Status: Acute Plan 87 year old women admitted with acute blood loss anemia secondary to GI bleed on eliquis Acute blood loss anemia secondary to GI bleed, likely upper 2 units prbc in the ED GI consult for possible endoscopy/colonoscopy Follow HH closely and tx as necessary PPI Hypothyroidism TSH 20.21 levothyroxine was recently decreased down to 75mg from 100 will continue with 100 mcg Hypertension stable BP continue home medications when med rec completed and if BP allows Atrial fibrillation Hold eliquis due to GI bleed continue digoxin, metoprolol DVT prophylaxis with SCD boots Attending Dr. Perez DNR med rec pending Patient requires at least 48 hours for admission for treatment of acute blood loss anemia secondary to GI bleed, on anticoagulation. She will require blood transfusion and close monitoring and specialty consultation. Due to patient's age and other comorbidities she is at high risk for decompensation therefore this can not be done at a lesser acute setting. Quality Stroke Does the patient have a stroke diagnosis?: No VTE Prior VTE?: No VTE Risk Level:: Medical - moderate - high VTE Device Contraindication: N/A - Device Ordered VTE Drug Contraindication: Treatment Not Indicated
--- NOTE | 2023-07-13 19:00 | PC.NURSE ---
Assumed care of pt. Pt lying on stretcher, asymptomatic, no acute distress at this time. RBC running in L forearm, VSS, continuing plan of care for admission and additional unit of RBC when first unit complete.
--- NOTE | 2023-07-13 19:39 | PHA.MEDREC ---
Pharmacy Consult ? Medication Reconciliation Pharmacy has completed the medication reconciliation. Spoke to patient and confirmed medication list.
--- NOTE | 2023-07-13 19:44 | MHC.EDTECH ---
Assumed care at 1900
--- NOTE | 2023-07-13 21:34 | PC.NURSE ---
Second unit of RBC started per policy and orders. No acute distress at this time.
--- NOTE | 2023-07-13 23:03 | PC.NURSE ---
Assumed care for pt. Pt aox4. 2nd unit of RBC's running with no complications. Monitoring is ongoing. Pending bed assingment.
[2023-07-14] VITALS (8 sets, daily range): BP systolic 144–180; BP diastolic 66–85; PULSE 65–89; RESP 14–20; TEMP 36.1–37; O2SAT 94–97
--- NOTE | 2023-07-14 00:22 | PC.NURSE ---
Pt aox4 resting at the bedside. No apparent distress noted. Pt assisted to the commode. Second unit of RBC's completed. Pt tolerated well. Pending bed assignment. Pt is aware of plan of care.
[2023-07-14] MEDS: Levothyroxine Sodium 100 MCG TABLET PO (06:00)
[2023-07-14] MEDS: Omeprazole 20 MG CAPSULE.DR PO ×2 (06:00→17:14)
[2023-07-14] MEDS: hydrALAZINE HCl 25 MG TABLET PO ×2 (08:39→20:55)
[2023-07-14] MEDS: Atorvastatin Calcium 10 MG TABLET PO (08:40)
[2023-07-14] MEDS: NIFEdipine ER 30 MG TAB.ER.24 PO (08:40)
[2023-07-14] MEDS: Metoprolol Succinate ER 50 MG TAB.ER.24H PO ×2 (08:40→20:55)
[2023-07-14] MEDS: 0.9 % Sodium Chloride Flush 3 ML SYRINGE IVFLUSH ×3 (08:46→20:56)
--- NOTE | 2023-07-14 09:06 | MHC.CM.PN ---
IMM 07/14/23 DELIVERED TO BEDSIDE, PT'S DTR/HCP RICARDA DID SIGN PT IS LEGALLY BLIND HOWEVER PT ALSO VERBALIZES UNDERSTANDING, PT REPORTS SHE LIVES ALONE, IS FULLY INDEP W/CARE, PT CURRENTLY DOES NOT USE BUT DOES HAVE A CANE/WALKER AND GRAB BARS THROUGHOUT THE HOUSE, PT'S DTR TYPICALLY ASSISTS W/ANY HOUSEHOLD NEEDS THAT COME UP. PT PREFERS [facility] IF MD RECOMMENDING [facility] SERVICES, CM ALSO OFFERED [facility] SERVICES HOWEVER PT DOES NOT FEEL SHE NEEDS BOARD OF EDUCATION SECRETARY SERVICES AT THIS TIME. PT VERIFIES PCP AND HCP ON FILE ARE CORRECT, PT COVID VACC X2
[2023-07-14 10:02] LABS: Hemoglobin 9.4 g/dl (12.0-16.0); Mean Corpuscular HGB Conc 30.3 g/dl (31.0-35.0); Mean Corpuscular Volume 72.6 fL (80.0-98.0); Mean Platelet Volume 9.9 fL (9.4-12.3); Platelet Count 270 X10*3/uL (160-400); Red Blood Count 4.27 X10*6/uL (4.20-5.50); Red Cell Distribution Width 21.3 % (11.0-16.0); White Blood Count 5.8 X10*3/uL (4.8-10.8)
[2023-07-14 10:18] LABS: Anion Gap 11 (12-20); Blood Urea Nitrogen 19 mg/dL (9-16); Calcium 9.8 mg/dL (8.4-10.2); Carbon Dioxide 25 mmol/L (22-29); Chloride 103 mmol/L (96-108); Creatinine Clr Calc Pharmacy 48.7; Estimated Glomerular Filt Rate > 60; Glucose Random 111 mg/dL (60-115); Potassium 4.2 mmol/L (3.3-5.1); Sodium 135 mmol/L (135-145)
[2023-07-14 10:19] LABS: Alanine Aminotransferase 13 U/L (0-31); Albumin Level 4.3 g/dL (3.5-5.0); Alkaline Phosphatase 86 U/L (39-117); Anion Gap 12 (12-20); Aspartate Amino Transferase 18 U/L (5-31); Bilirubin Total 4.9 mg/dL (0.0-1.0); Blood Urea Nitrogen 19 mg/dL (9-16); Calcium 9.5 mg/dL (8.4-10.2); Carbon Dioxide 25 mmol/L (22-29); Chloride 103 mmol/L (96-108); Creatinine Clr Calc Pharmacy 47.3; Estimated Glomerular Filt Rate > 60; Glucose Random 110 mg/dL (60-115); Potassium 4.2 mmol/L (3.3-5.1); Sodium 136 mmol/L (135-145); Total Protein 6.9 g/dL (6.5-8.0)
--- NOTE | 2023-07-14 11:59 | P.PNIM_ITS ---
Subjective Subjective Date of Service: 07/14/23 Review of Systems Follow-up GI bleed, anemia Denies pain, obvious bleeding Physical Exam 2 Vital Signs: Vital Signs: Last Vital Signs Temp 97.0 F 07/14/23 11:35 Pulse 78 07/14/23 11:35 Resp 20 07/14/23 11:35 BP 155/66 H 07/14/23 11:35 Pulse Ox 95 07/14/23 11:35 O2 Del Method Room Air 07/14/23 11:35 BMI result Body Mass Index 25.9 Appearing in no acute distress, legally blind lung sounds are clear to auscultation heart regular rate rhythm, clear S1, S2 positive bowel sounds, abdomen is soft, nontender neuro patient is alert x3, no focal deficits Objective Data Active Medications Acetaminophen (Acetaminophen 325 Mg Tablet) 650 mg PO Q6H PRN PRN Reason: Pain, Mild (Pain Scale 1-3) Atorvastatin Calcium (Atorvastatin Calcium 10 Mg Tablet) 10 mg PO DAILY [facility] Last Admin: 07/14/23 08:40 Dose: 10 mg Documented By: MARION Digoxin (Digoxin 0.125 Mg Tablet) 0.125 mg PO DAILY@1800 [facility] Hydralazine HCl (Hydralazine Hcl 25 Mg Tablet) 25 mg PO BID [facility]; Protocol Last Admin: 07/14/23 08:39 Dose: 25 mg Documented By: MARION Levothyroxine Sodium (Levothyroxine Sodium 100 Mcg Tablet) 100 mcg PO DAILY@0600 [facility] Last Admin: 07/14/23 06:00 Dose: 100 mcg Documented By: TALAT Levothyroxine Sodium (Levothyroxine Sodium 75 Mcg Tablet) 75 mcg PO DAILY@0600 [facility] Metoprolol Succinate (Metoprolol Succinate Er 50 Mg Tab.Er.24h) 50 mg PO BID [facility]; Protocol Last Admin: 07/14/23 08:40 Dose: 50 mg Documented By: MARION Nifedipine (Nifedipine Er 30 Mg Tab.Er.24) 30 mg PO DAILY@0900 [facility]; Protocol Last Admin: 07/14/23 08:40 Dose: 30 mg Documented By: MARION Omeprazole (Omeprazole 20 Mg Capsule.) 20 mg PO BID@0630,1630 [facility] Last Admin: 07/14/23 06:00 Dose: 20 mg Documented By: TALAT Ondansetron HCl (Ondansetron Hcl 4 Mg/2 Ml Vial) 4 mg IVPUSH Q8H PRN PRN Reason: Nausea and Vomiting Sodium Chloride (0.9 % Sodium Chloride Flush 3 Ml Syringe) 3 ml IVFLUSH QSHIFT [facility] Last Admin: 07/14/23 08:46 Dose: 3 ml Documented By: MARION Valsartan (Valsartan 320 Mg Tablet) 320 mg PO DAILY@1200 [facility]; Protocol Labs 07/14/23 09:17 07/14/23 09:17 Labs: Laboratory Results - last 24 hr 07/13/23 07/13/23 07/14/23 15:21 16:34 09:17 MCV Cancelled MCH MCHC RDW Plt Count MPV Absolute Nucleated RBC Nucleated RBC % (auto) Anion Gap Estim Creat Clear Calc Estimated GFR Random Glucose Calcium Total Bilirubin AST ALT Alkaline Phosphatase Total Protein Albumin Stool Occult Blood POSITIVE Blood Type B Negative Antibody Screen NEGATIVE Crossmatch See Detail 07/14/23 07/14/23 07/14/23 09:17 09:17 09:17 MCV 72.6 L MCH Cancelled 22.0 L MCHC Cancelled 30.3 L RDW Cancelled Plt Count MPV Absolute Nucleated RBC Nucleated RBC % (auto) Anion Gap Estim Creat Clear Calc Estimated GFR Random Glucose Calcium Total Bilirubin AST ALT Alkaline Phosphatase Total Protein Albumin Stool Occult Blood Blood Type Antibody Screen Crossmatch 07/14/23 07/14/23 07/14/23 09:17 09:17 09:17 MCV MCH MCHC RDW 21.3 H Plt Count Cancelled 270 MPV Cancelled 9.9 Absolute Nucleated RBC Cancelled Nucleated RBC % (auto) Anion Gap Estim Creat Clear Calc Estimated GFR Random Glucose Calcium Total Bilirubin AST ALT Alkaline Phosphatase Total Protein Albumin Stool Occult Blood Blood Type Antibody Screen Crossmatch 07/14/23 07/14/23 07/14/23 09:17 09:17 09:17 MCV MCH MCHC RDW Plt Count MPV Absolute Nucleated RBC 0.000 Nucleated RBC % (auto) Cancelled 0.0 Anion Gap 12 11 L Estim Creat Clear Calc 47.3 Estimated GFR Random Glucose Calcium Total Bilirubin AST ALT Alkaline Phosphatase Total Protein Albumin Stool Occult Blood Blood Type Antibody Screen Crossmatch 07/14/23 07/14/23 07/14/23 09:17 09:17 09:17 MCV MCH MCHC RDW Plt Count MPV Absolute Nucleated RBC Nucleated RBC % (auto) Anion Gap Estim Creat Clear Calc 48.7 Estimated GFR > 60 > 60 Random Glucose 110 111 Calcium 9.5 Total Bilirubin AST ALT Alkaline Phosphatase Total Protein Albumin Stool Occult Blood Blood Type Antibody Screen Crossmatch 07/14/23 09:17 MCV MCH MCHC RDW Plt Count MPV Absolute Nucleated RBC Nucleated RBC % (auto) Anion Gap Estim Creat Clear Calc Estimated GFR Random Glucose Calcium 9.8 Total Bilirubin 4.9 H AST 18 ALT 13 Alkaline Phosphatase 86 Total Protein 6.9 Albumin 4.3 Stool Occult Blood Blood Type Antibody Screen Crossmatch Assessment and Plan (1) Acute GI bleeding: Status: Acute Plan 87 year old women admitted with acute blood loss anemia secondary to GI bleed on eliquis Acute blood loss anemia secondary to GI bleed, likely upper s/p 2 units prbc in the ED with good rise in H&H GI consult for possible endoscopy/colonoscopy Follow HH closely and tx as necessary PPI Hypothyroidism TSH 20.21 levothyroxine was recently decreased down to 75mg from 100 will continue with 100 mcg Hypertension stable BP continue home medications Atrial fibrillation Hold eliquis due to GI bleed continue digoxin, metoprolol DVT prophylaxis with SCD boots Attending Dr. Cruz DNR Continue hospital admission for treatment of acute blood loss anemia secondary to GI bleed, on anticoagulation. She will require blood transfusion and close monitoring and specialty consultation. Due to patient's age and other comorbidities she is at high risk for decompensation therefore this can not be done at a lesser acute setting. Quality Stroke Does the patient have a stroke diagnosis?: No VTE Prior VTE?: No VTE Risk Level:: Medical - moderate - high VTE Device Contraindication: N/A - Device Ordered VTE Drug Contraindication: Treatment Not Indicated
--- NOTE | 2023-07-14 12:16 | P.CNGI_ITS ---
History of Present Illness Data of Consult Service Date: 07/14/23 Requesting physician: Mara Loaj Primary Care Provider: Cesar Estrada MD HPI Reason for consult: anemia 87-year-old woman w/ hx of a-fib, HTN, ORIF who I am seeing for assessment for anemia. She initialyl presented with fatigue and weakness last few days and had labs checked by PCP, after lasb showed anemia she was called and told to came to the ED. ECG with a-fib and RBBB. Labs: hemoglobin 6.8, hematocrit 24.6, TSH 20.21. She denied chest pain, shortness for breath, nausea, vomiting, diarrhea. No abdominal pain, no melena or rectal bleeding. no NSAID use She has been on eliquis since 07/2022 for the a-fib. She got a few units of blood and HGB increased appropriately to aroun 9-10 g/dl. Per RN last stool was brown, and no melena or hematochezia, she has never had a colonoscopy or EGD Review of Systems 2 Review of Systems: Constitutional : No Weight loss, No Fever, No Chills ENT/Mouth : No sore throat, No Rhinorrhea Eyes: No Swelling, No Redness Cardiovascular : No Chest Pain, No SOB, No Edema Respiratory : No Cough, No Sputum, No Wheezing Gastrointestinal : see HPI Genitourinary : NO Dysuria, No Urinary Frequency, No Hematuria, No Urgency Musculoskeletal : + joint pain, No Myalgias, No Joint Swelling Skin : No Skin Lesions, No rash Neuro : + Weakness, No Numbness, No Dizziness, No Headache Psych : No Anxiety/Panic, No Depression Heme/Lymph: No Bruising, No Lymphadenopathy Endocrine : No Polyuria, No Polydipsia All other systems reviewed and are negative. [facility] [place] Past Medical History Medical History Hyponatremia Hypothyroid Alcohol intoxication Fall Closed trimalleolar fracture of ankle High cholesterol Vaso-vagal reaction HTN (hypertension) Family History Family History Father Angina at rest Social History Social History Household Members: None Housing: House Do you presently have visiting nurse or other home services: No Alcohol intake: current Alcohol intake frequency: a few times a week Patient Tobacco Use Status: Never used Tobacco Smoked in Last 30 Days: No Use of substances other than those prescribed or required for medical reasons: No Currently Displaying Signs/Symptoms of Drug Intoxication Withdrawal: No Advance Directives: No Advance Directives Information Provided: No Do you have thoughts of harming others: None Do you have a plan to hurt others: No Plan Eating poorly because of decreased appetite: No Nutrition Risks: No Nutritional Risk Patient : No : No Poor oral hygiene: No service: No Current occupational status: retired Current occupation: [employer]t handed Meds Allergies Allergy/AdvReac Type Severity Reaction Status Date / Time No Known Allergies Allergy Verified 07/13/23 15:03 [No Known Allergies*] Active Medications: Current Medications Acetaminophen (Acetaminophen 325 Mg Tablet) 650 mg PO Q6H PRN PRN Reason: Pain, Mild (Pain Scale 1-3) Atorvastatin Calcium (Atorvastatin Calcium 10 Mg Tablet) 10 mg PO DAILY [facility] Last Admin: 07/14/23 08:40 Dose: 10 mg Digoxin (Digoxin 0.125 Mg Tablet) 0.125 mg PO DAILY@1800 [facility] Hydralazine HCl (Hydralazine Hcl 25 Mg Tablet) 25 mg PO BID [facility]; Protocol Last Admin: 07/14/23 08:39 Dose: 25 mg Levothyroxine Sodium (Levothyroxine Sodium 100 Mcg Tablet) 100 mcg PO DAILY@0600 [facility] Last Admin: 07/14/23 06:00 Dose: 100 mcg Levothyroxine Sodium (Levothyroxine Sodium 75 Mcg Tablet) 75 mcg PO DAILY@0600 [facility] Metoprolol Succinate (Metoprolol Succinate Er 50 Mg Tab.Er.24h) 50 mg PO BID [facility]; Protocol Last Admin: 07/14/23 08:40 Dose: 50 mg Nifedipine (Nifedipine Er 30 Mg Tab.Er.24) 30 mg PO DAILY@0900 [facility]; Protocol Last Admin: 07/14/23 08:40 Dose: 30 mg Omeprazole (Omeprazole 20 Mg Capsule.Dr) 20 mg PO BID@0630,1630 [facility] Last Admin: 07/14/23 06:00 Dose: 20 mg Ondansetron HCl (Ondansetron Hcl 4 Mg/2 Ml Vial) 4 mg IVPUSH Q8H PRN PRN Reason: Nausea and Vomiting Sodium Chloride (0.9 % Sodium Chloride Flush 3 Ml Syringe) 3 ml IVFLUSH QSHIFT [facility] Last Admin: 07/14/23 08:46 Dose: 3 ml Valsartan (Valsartan 320 Mg Tablet) 320 mg PO DAILY@1200 [facility]; Protocol Home Medications ?Medication ?Instructions ?Recorded ?Confirmed ?Last Taken ?Type atorvastatin 10 mg tablet 10 mg PO DAILY 02/08/21 07/13/23 07/13/23 History estradiol 0.01% (0.1 mg/gram) 1 g vaginal SUWE 02/08/21 07/13/23 07/12/23 History vaginal cream valsartan 320 mg tablet 320 mg PO DAILY@1200 02/08/21 07/13/23 07/13/23 History nifedipine 30 mg tablet,extended 30 mg PO DAILY@0904/13/22 07/13/23 07/13/23 History release 24 hr omeprazole 20 mg capsule,delayed 20 mg PO DAILY@0630 04/13/22 07/13/23 07/13/23 History release apixaban 5 mg tablet (Eliquis) 5 mg PO BID 10/13/22 07/13/23 07/13/23 History metoprolol succinate 50 mg 50 mg PO BID 10/13/22 07/13/23 07/13/23 History tablet,extended release 24 hr digoxin 125 mcg (0.125 mg) tablet 125 mcg PO DAILY@1800 07/13/23 07/13/23 07/12/23 History (Digox) levothyroxine 75 mcg tablet 75 mcg PO DAILY@0607/13/23 07/13/23 07/13/23 History Physical Exam 2 Vital Signs: Vital Signs: Last Vital Signs Temp 97.0 F 07/14/23 11:35 Pulse 78 07/14/23 11:35 Resp 20 07/14/23 11:35 BP 155/66 H 07/14/23 11:35 Pulse Ox 95 07/14/23 11:35 O2 Del Method Room Air 07/14/23 11:35 BMI result Body Mass Index 25.9 EXAM: GENERAL: The patient is well developed and nontoxic. VITAL SIGNS:see workflow HEENT: Nonicteric sclerae, PERRLA, EOMI. Oropharynx clear. Moist mucous membranes. Conjunctivae appear well perfused. No thyroid mass. CHEST: Chest wall is nontender. HEART: Regular rate and rhythm without murmurs. LUNGS: Clear to auscultation bilaterally. ABDOMEN: Soft, positive bowel sounds, nontender, no organomegaly.no flank tenderness SKIN: No rash, no excessive bruising, petechiae, or purpura. NEUROLOGIC: Cranial nerves II-XII intact without motor/sensory deficit. Psych: normal affect Results Labs 07/14/23 09:17 07/14/23 09:17 Labs: Short CBC 07/14/23 07/14/23 07/14/23 Range/Units 09:17 09:17 09:17 WBC Cancelled 5.8 Hgb Cancelled 9.4 L D Hct Cancelled Plt Count 07/14/23 07/14/23 Range/Units 09:17 09:17 WBC Hgb Hct 31.0 L D Plt Count Cancelled 270 BMP 07/14/23 07/14/23 07/14/23 09:17 09:17 09:17 Sodium 136 135 Potassium 4.2 4.2 Chloride 103 Carbon Dioxide BUN Creatinine Calcium 07/14/23 07/14/23 07/14/23 09:17 09:17 09:17 Sodium Potassium Chloride 103 Carbon Dioxide 25 25 BUN 19 H 19 H Creatinine 0.75 Calcium 07/14/23 07/14/23 09:17 09:17 Sodium Potassium Chloride Carbon Dioxide BUN Creatinine 0.73 Calcium 9.5 9.8 Liver Function 07/14/23 Range/Units 09:17 Total Bilirubin 4.9 H (0.0-1.0) mg/dL AST 18 (5-31) U/L ALT 13 (0-31) U/L Alkaline Phosphatase 86 (39-117) U/L Albumin 4.3 (3.5-5.0) g/dL Assessment and Plan (1) Anemia: Qualifiers: Anemia type: unspecified type Qualified Code(s): D64.9 - Anemia, unspecified Status: Acute Plan 1/ microcytic anemia, without overt GI bleeding has been on eliquis, ddx: mucosal bleeding, enteritis, PUD, mass or tumour, AVM PLAN: 1/ resuscitate, HGB target >9 g/dl 2/ Okt o use PPI meantime 3/ EGD and colonoscopy on Wednesday, change to clears tomorrow, and colyte tomorrow evening. 4/ hold eliquis for the moment Procedures Date of Service Date of Service: 07/14/23
[2023-07-14] MEDS: Valsartan 320 MG TABLET PO (12:22)
[2023-07-14] MEDS: Acetaminophen 325 MG TABLET 650 MG PO (13:22)
[2023-07-14] MEDS: Digoxin 0.125 MG TABLET PO (17:14)
[2023-07-15] VITALS (7 sets, daily range): BP systolic 138–170; BP diastolic 63–83; PULSE 50–91; RESP 16–19; TEMP 36.3–36.9; O2SAT 93–96
[2023-07-15] MEDS: Acetaminophen 325 MG TABLET 650 MG PO (06:13)
[2023-07-15] MEDS: Omeprazole 20 MG CAPSULE.DR PO ×2 (06:13→17:15)
[2023-07-15] MEDS: Levothyroxine Sodium 75 MCG TABLET PO (06:13)
[2023-07-15] MEDS: Levothyroxine Sodium 100 MCG TABLET PO (06:13)
[2023-07-15] MEDS: Metoprolol Succinate ER 50 MG TAB.ER.24H PO ×2 (07:48→20:33)
[2023-07-15] MEDS: hydrALAZINE HCl 25 MG TABLET PO (07:48)
[2023-07-15] MEDS: Atorvastatin Calcium 10 MG TABLET PO (07:48)
[2023-07-15] MEDS: NIFEdipine ER 30 MG TAB.ER.24 PO (07:48)
[2023-07-15] MEDS: 0.9 % Sodium Chloride Flush 3 ML SYRINGE IVFLUSH ×3 (07:55→20:33)
[2023-07-15 09:03] LABS: Hematocrit 27.2 % (37.0-47.0); Hemoglobin 8.3 g/dl (12.0-16.0)
[2023-07-15] MEDS: Valsartan 320 MG TABLET PO (12:52)
--- NOTE | 2023-07-15 13:42 | HO.PM.IMPN ---
Subjective Subjective Date of Service: 07/15/23 Interval History: seen and examined this morning follow up for GI bleed no rectal bleeding noted denies sob, dizziness Review of Systems Review of Systems: Yes all other systems are reviewed and are negative Constitutional Constitutional: Denies chills and Denies fever(s) Cardiovascular Cardiovascular: Denies chest pain, Denies palpitations and Denies dyspnea Respiratory Respiratory: Denies dyspnea Endocrine Endocrine: Denies palpitations Physical Exam Vital Signs: Vital Signs: Last Vital Signs Temp 98.4 F 07/15/23 11:22 Pulse 68 07/15/23 11:22 Resp 16 07/15/23 11:22 BP 138/65 07/15/23 11:22 Pulse Ox 96 07/15/23 11:22 O2 Del Method Room Air 07/15/23 11:22 BMI result Body Mass Index 25.9 Const: General: cooperative, comfortable, no acute distress, alert and awake Nutritional Appearance: average body habitus Orientation/consciousness: patient oriented x3 Resp: Effort & Inspection: normal respiratory effort, able to speak in complete sentences, no respiratory distress and no use of accessory muscles Cardio: Rate: regular rate GI: Inspection: No distended Palpation (GI): Soft to palpation and nontender Neuro: General: patient oriented x3, moves all extremities and CN's II-XI intact bilaterally Extrem: Other: 1+ b/l leg edema Objective Data Active Medications Acetaminophen (Acetaminophen 325 Mg Tablet) 650 mg PO Q6H PRN PRN Reason: Pain, Mild (Pain Scale 1-3) Last Admin: 07/15/23 06:13 Dose: 650 mg Documented By: BRENDA Atorvastatin Calcium (Atorvastatin Calcium 10 Mg Tablet) 10 mg PO DAILY [facility] Last Admin: 07/15/23 07:48 Dose: 10 mg Documented By: MARION Digoxin (Digoxin 0.125 Mg Tablet) 0.125 mg PO DAILY@1800 [facility] Last Admin: 07/14/23 17:14 Dose: 0.125 mg Documented By: MARION Hydralazine HCl (Hydralazine Hcl 25 Mg Tablet) 25 mg PO BID [facility]; Protocol Last Admin: 07/15/23 07:48 Dose: 25 mg Documented By: MARION Levothyroxine Sodium (Levothyroxine Sodium 100 Mcg Tablet) 100 mcg PO DAILY@0600 [facility] Metoprolol Succinate (Metoprolol Succinate Er 50 Mg Tab.Er.24h) 50 mg PO BID [facility]; Protocol Last Admin: 07/15/23 07:48 Dose: 50 mg Documented By: MARION Nifedipine (Nifedipine Er 30 Mg Tab.Er.24) 30 mg PO DAILY@0900 [facility]; Protocol Last Admin: 07/15/23 07:48 Dose: 30 mg Documented By: MARION Omeprazole (Omeprazole 20 Mg Capsule.) 20 mg PO BID@0630,1630 [facility] Last Admin: 07/15/23 06:13 Dose: 20 mg Documented By: BRENDA Ondansetron HCl (Ondansetron Hcl 4 Mg/2 Ml Vial) 4 mg IVPUSH Q8H PRN PRN Reason: Nausea and Vomiting Polyethylene Glycol/Electrolytes (Peg 3350/Na Sulf,Bicarb,Cl/Kcl 4,000 Ml Soln.Recon) 240 ml PO Q10M [facility] Stop: 07/15/23 21:41 Sodium Chloride (0.9 % Sodium Chloride Flush 3 Ml Syringe) 3 ml IVFLUSH QSHIFT [facility] Last Admin: 07/15/23 07:55 Dose: 3 ml Documented By: MARION Valsartan (Valsartan 320 Mg Tablet) 320 mg PO DAILY@1200 [facility]; Protocol Last Admin: 07/15/23 12:52 Dose: 320 mg Documented By: MARION Labs 07/15/23 08:22 07/14/23 09:17 Assessment and Plan (1) Anemia: Status: Acute Plan This is an 87 year old women admitted with acute blood loss anemia secondary to possible GI bleed on eliquis Acute blood loss anemia secondary to GI bleeding unspecified. s/p 2 units prbc in the ED with good rise in H&H seen by GI - plan for endoscopy/colonoscopy 07/14 clear liquids today and prep this afternoon PPI Hypothyroidism TSH 20.21 levothyroxine was recently decreased down to 75mg from 100 will continue with 100 mcg Hypertension stable BP continue home medications Atrial fibrillation Hold eliquis due to GI bleed continue digoxin, metoprolol DVT prophylaxis with SCD boots Attending Dr. Cruz DNR Requires ongoing inpatient stay for close monitoring of anemia due to likely GI bleeding with need for specialist evaluation and inpatient procedure. Due to patient's age and other comorbidities she is at high risk for decompensation therefore this can not be done at a lesser acute setting. Quality Stroke Does the patient have a stroke diagnosis?: No VTE Prior VTE?: No VTE Risk Level:: Medical - moderate - high VTE Device Contraindication: N/A - Device Ordered VTE Drug Contraindication: Treatment Not Indicated
--- NOTE | 2023-07-15 14:52 | MHC.CM.PN ---
CM MET WITH PT REGARDING HOME SERVICES SHOULD THEY BE RECOMMENDED. PT'S FIRST CHOICE IS [facility]. REFERRAL SENT. CM WILL CONTINUE TO FOLLOW FOR ANY CHANGE TO DC NEEDS.
[2023-07-15] MEDS: Digoxin 0.125 MG TABLET PO (17:15)
[2023-07-15] MEDS: PEG 3350/Na Sulf,Bicarb,Cl/KCL 4,000 ML SOLN.RECON 240 ML PO ×14 (18:42→23:26)
[2023-07-16] VITALS (10 sets, daily range): BP systolic 120–181; BP diastolic 60–93; PULSE 62–89; RESP 16–20; TEMP 36.2–36.7; O2SAT 92–99
[2023-07-16 06:51] LABS: Anion Gap 14 (12-20); Blood Urea Nitrogen 10 mg/dL (9-16); Calcium 10.2 mg/dL (8.4-10.2); Carbon Dioxide 26 mmol/L (22-29); Chloride 100 mmol/L (96-108); Creatinine Clr Calc Pharmacy 50.1; Estimated Glomerular Filt Rate > 60; Glucose Random 98 mg/dL (60-115); Potassium 4.5 mmol/L (3.3-5.1); Sodium 135 mmol/L (135-145)
[2023-07-16 06:57] LABS: Hematocrit 31.3 % (37.0-47.0); Hemoglobin 9.4 g/dl (12.0-16.0); Mean Corpuscular Hemoglobin 21.9 pg (27.0-33.0); Mean Corpuscular Volume 72.8 fL (80.0-98.0); Mean Platelet Volume 9.7 fL (9.4-12.3); Platelet Count 292 X10*3/uL (160-400); Red Cell Distribution Width 22.4 % (11.0-16.0)
[2023-07-16] MEDS: Metoprolol Succinate ER 50 MG TAB.ER.24H PO ×2 (08:49→21:10)
[2023-07-16] MEDS: 0.9 % Sodium Chloride Flush 3 ML SYRINGE IVFLUSH ×3 (08:49→21:10)
[2023-07-16] MEDS: Sodium Phosphate,Mono-Dibasic 133 ML ENEMA PR (11:30)
--- NOTE | 2023-07-16 12:44 | MHC.CM.PN ---
EMR REVIEWED, PLAN FOR EGD/COLONOSCOPY LETER TODAY, ANTIC PT WILL REMAIN INPT OVER NOC AND DC HOME TOMORROW, CM WILL CONT TO FOLLOW DC NEEDS.
--- NOTE | 2023-07-16 12:57 | P.PNGI_ITS ---
Subjective Subjective Date of Service: 07/16/23 Interval History: no complaints no overt GI bleeding feels hungry no abdominal pain HGB steady Critical Care Time (minutes): 0 Physical Exam 2 Vital Signs: Vital Signs: Last Vital Signs Temp 98.1 F 07/16/23 10:54 Pulse 67 07/16/23 10:54 Resp 18 07/16/23 10:54 BP 175/83 H 07/16/23 10:54 Pulse Ox 96 07/16/23 10:54 O2 Del Method Room Air 07/16/23 10:54 BMI result Body Mass Index 25.9 EXAM: GENERAL: The patient is well developed and nontoxic. VITAL SIGNS:see workflow HEENT: Nonicteric sclerae, PERRLA, EOMI. Oropharynx clear. Moist mucous membranes. Conjunctivae appear well perfused. No thyroid mass. CHEST: Chest wall is nontender. HEART: Regular rate and rhythm without murmurs. LUNGS: Clear to auscultation bilaterally. ABDOMEN: Soft, positive bowel sounds, nontender, no organomegaly.no flank tenderness SKIN: No rash, no excessive bruising, petechiae, or purpura. NEUROLOGIC: Cranial nerves II-XII intact without motor/sensory deficit. Psych: normal affect Objective Data Labs 07/16/23 06:02 07/16/23 06:02 Labs: Laboratory Results - last 24 hr 07/16/23 06:02 WBC 7.0 RBC 4.30 Hgb 9.4 L Hct 31.3 L MCV 72.8 L MCH 21.9 L MCHC 30.0 L RDW 22.4 H Plt Count 292 MPV 9.7 Absolute Nucleated RBC 0.000 Nucleated RBC % (auto) 0.0 Sodium 135 Potassium 4.5 Chloride 100 Carbon Dioxide 26 Anion Gap 14 BUN 10 Creatinine 0.71 Estim Creat Clear Calc 50.1 Estimated GFR > 60 Random Glucose 98 Calcium 10.2 Procedures Date of Service Date of Service: 07/16/23 Progress Note: A&P Assessment and plan (1) Anemia: Status: Acute Assessment and Plan: 1/ Anemia, possible underlying neoplasia, no overt GIB PLAN: / / EGD and colonoscopy today for further assessment Time Spent With Patient Time: Total time managing care of this patient today ____ minutes. Quality Stroke Does the patient have a stroke diagnosis?: No VTE Prior VTE?: No VTE Risk Level:: Medical - moderate - high VTE Device Contraindication: N/A - Device Ordered VTE Drug Contraindication: Treatment Not Indicated
--- NOTE | 2023-07-16 12:58 | MHC.SHP ---
Pre-Procedural Eval Section A - 24 Hr Update-Section A only Date of Service: 07/16/23 The patient is an INPATIENT: Yes The patient has been examined within 24 hours of the surgical procedure. The History & Physical has been completed within 30 days and I have reviewed it.: Yes Section B - Complete if H&P > 30 days Chief Complaint: GI bleed, afib Allergies: Allergies Allergy/AdvReac Type Severity Reaction Status Date / Time No Known Allergies Allergy Verified 07/13/23 15:03 [No Known Allergies*] Plan I have reviewed the history and physical and performed a pertinent physical examination on my patient. No changes have occurred unless specified. Time Spent With Patient Time: Total time managing care of this patient today ____ minutes.
--- NOTE | 2023-07-16 14:20 | P.CONAN_ITS ---
HPI - Anesthesia Eval Consult details Narrative: for upper and colon PMFSH Active Problems Active Problems: All Active Problems Anemia (Acute) Acute GI bleeding (Acute) Atrial fibrillation with rapid ventricular response (Acute) HTN (hypertension) (Acute) PVC (premature ventricular contraction) (Acute) Status post ORIF of fracture of ankle (Acute) Past Medical History Medical History Hyponatremia Hypothyroid Alcohol intoxication Fall Closed trimalleolar fracture of ankle High cholesterol Vaso-vagal reaction HTN (hypertension) Family History Family History Father Angina at rest Family history of problems with anesthesia: No Surgical History History of Problems with Anesthesia: No Social History Social History Household Members: None Housing: House Do you presently have visiting nurse or other home services: No Alcohol intake: current Alcohol intake frequency: a few times a week Patient Tobacco Use Status: Never used Tobacco Smoked in Last 30 Days: No Use of substances other than those prescribed or required for medical reasons: No Currently Displaying Signs/Symptoms of Drug Intoxication Withdrawal: No Advance Directives: No Advance Directives Information Provided: No Do you have thoughts of harming others: None Do you have a plan to hurt others: No Plan Eating poorly because of decreased appetite: No Nutrition Risks: No Nutritional Risk Patient : No : No Poor oral hygiene: No service: No Current occupational status: retired Current occupation: [employer]t handed Meds Allergies Allergy/AdvReac Type Severity Reaction Status Date / Time No Known Allergies Allergy Verified 07/13/23 15:03 [No Known Allergies*] Active Medications: Current Medications Acetaminophen (Acetaminophen 325 Mg Tablet) 650 mg PO Q6H PRN PRN Reason: Pain, Mild (Pain Scale 1-3) Last Admin: 07/15/23 06:13 Dose: 650 mg Atorvastatin Calcium (Atorvastatin Calcium 10 Mg Tablet) 10 mg PO DAILY [facility] [place] Last Admin: 07/16/23 08:50 Dose: Not Given Digoxin (Digoxin 0.125 Mg Tablet) 0.125 mg PO DAILY@1800 [facility] [place] Last Admin: 07/15/23 17:15 Dose: 0.125 mg Hydralazine HCl (Hydralazine Hcl 25 Mg Tablet) 25 mg PO BID [facility] [place]; Protocol Last Admin: 07/15/23 07:48 Dose: 25 mg Levothyroxine Sodium (Levothyroxine Sodium 100 Mcg Tablet) 100 mcg PO DAILY@0600 [facility] [place] Last Admin: 07/16/23 05:45 Dose: Not Given Metoprolol Succinate (Metoprolol Succinate Er 50 Mg Tab.Er.24h) 50 mg PO BID [facility] [place]; Protocol Last Admin: 07/16/23 08:49 Dose: 50 mg Nifedipine (Nifedipine Er 30 Mg Tab.Er.24) 30 mg PO DAILY@0900 [facility] [place]; Protocol Last Admin: 07/16/23 08:50 Dose: Not Given Omeprazole (Omeprazole 20 Mg Capsule.Dr) 20 mg PO BID@0630,1630 [facility] [place] Last Admin: 07/16/23 05:45 Dose: Not Given Ondansetron HCl (Ondansetron Hcl 4 Mg/2 Ml Vial) 4 mg IVPUSH Q8H PRN PRN Reason: Nausea and Vomiting Sodium Chloride (0.9 % Sodium Chloride Flush 3 Ml Syringe) 3 ml IVFLUSH QSHIFT [facility] [place] Last Admin: 07/16/23 08:49 Dose: 3 ml Valsartan (Valsartan 320 Mg Tablet) 320 mg PO DAILY@1200 [facility] [place]; Protocol Last Admin: 07/15/23 12:52 Dose: 320 mg Home Medications ?Medication ?Instructions ?Recorded ?Confirmed ?Last Taken ?Type atorvastatin 10 mg tablet 10 mg PO DAILY 02/08/21 07/13/23 07/13/23 History estradiol 0.01% (0.1 mg/gram) 1 g vaginal SUWE 02/08/21 07/13/23 07/12/23 History vaginal cream valsartan 320 mg tablet 320 mg PO DAILY@1200 02/08/21 07/13/23 07/13/23 History nifedipine 30 mg tablet,extended 30 mg PO DAILY@0904/13/22 07/13/23 07/13/23 History release 24 hr omeprazole 20 mg capsule,delayed 20 mg PO DAILY@0604/13/22 07/13/23 07/13/23 History release apixaban 5 mg tablet (Eliquis) 5 mg PO BID 10/13/22 07/13/23 07/13/23 History metoprolol succinate 50 mg 50 mg PO BID 10/13/22 07/13/23 07/13/23 History tablet,extended release 24 hr digoxin 125 mcg (0.125 mg) tablet 125 mcg PO DAILY@1800 07/13/23 07/13/23 07/12/23 History (Digox) levothyroxine 75 mcg tablet 75 mcg PO DAILY@0600 07/13/23 07/13/23 07/13/23 History Exam Height,Weight and Vital Signs: Height 5 ft 3 in Weight 66.2 kg Last Vital Signs Temp 97.9 F 07/16/23 13:05 Pulse 88 07/16/23 13:05 Resp 17 07/16/23 13:05 BP 172/75 H 07/16/23 13:05 Pulse Ox 95 07/16/23 13:05 O2 Del Method Room Air 07/16/23 13:05 Pertinent Lab Results Pertinent Lab Results: Laboratory Tests 07/13/23 07/13/23 07/14/23 15:21 16:34 09:17 WBC Cancelled RBC Hgb Hct MCV MCH MCHC RDW Plt Count MPV Absolute Nucleated RBC Nucleated RBC % (auto) Sodium Potassium Chloride Carbon Dioxide Anion Gap BUN Creatinine Estim Creat Clear Calc Estimated GFR Random Glucose Calcium Total Bilirubin AST ALT Alkaline Phosphatase Total Protein Albumin Stool Occult Blood POSITIVE Blood Type B Negative Antibody Screen NEGATIVE Crossmatch See Detail 07/14/23 07/14/23 07/14/23 09:17 09:17 09:17 WBC 5.8 RBC Cancelled 4.27 D Hgb Cancelled 9.4 L D Hct Cancelled MCV MCH MCHC RDW Plt Count MPV Absolute Nucleated RBC Nucleated RBC % (auto) Sodium Potassium Chloride Carbon Dioxide Anion Gap BUN Creatinine Estim Creat Clear Calc Estimated GFR Random Glucose Calcium Total Bilirubin AST ALT Alkaline Phosphatase Total Protein Albumin Stool Occult Blood Blood Type Antibody Screen Crossmatch 07/14/23 07/14/23 07/14/23 09:17 09:17 09:17 WBC RBC Hgb Hct 31.0 L D MCV Cancelled 72.6 L MCH Cancelled 22.0 L MCHC Cancelled RDW Plt Count MPV Absolute Nucleated RBC Nucleated RBC % (auto) Sodium Potassium Chloride Carbon Dioxide Anion Gap BUN Creatinine Estim Creat Clear Calc Estimated GFR Random Glucose Calcium Total Bilirubin AST ALT Alkaline Phosphatase Total Protein Albumin Stool Occult Blood Blood Type Antibody Screen Crossmatch 07/14/23 07/14/23 07/14/23 09:17 09:17 09:17 WBC RBC Hgb Hct MCV MCH MCHC 30.3 L RDW Cancelled 21.3 H Plt Count Cancelled 270 MPV Cancelled Absolute Nucleated RBC Nucleated RBC % (auto) Sodium Potassium Chloride Carbon Dioxide Anion Gap BUN Creatinine Estim Creat Clear Calc Estimated GFR Random Glucose Calcium Total Bilirubin AST ALT Alkaline Phosphatase Total Protein Albumin Stool Occult Blood Blood Type Antibody Screen Crossmatch 07/14/23 07/14/23 07/14/23 09:17 09:17 09:17 WBC RBC Hgb Hct MCV MCH MCHC RDW Plt Count MPV 9.9 Absolute Nucleated RBC Cancelled 0.000 Nucleated RBC % (auto) Cancelled 0.0 Sodium 136 Potassium Chloride Carbon Dioxide Anion Gap BUN Creatinine Estim Creat Clear Calc Estimated GFR Random Glucose Calcium Total Bilirubin AST ALT Alkaline Phosphatase Total Protein Albumin Stool Occult Blood Blood Type Antibody Screen Crossmatch 07/14/23 07/14/23 07/14/23 09:17 09:17 09:17 WBC RBC Hgb Hct MCV MCH MCHC RDW Plt Count MPV Absolute Nucleated RBC Nucleated RBC % (auto) Sodium 135 Potassium 4.2 4.2 Chloride 103 103 Carbon Dioxide 25 Anion Gap BUN Creatinine Estim Creat Clear Calc Estimated GFR Random Glucose Calcium Total Bilirubin AST ALT Alkaline Phosphatase Total Protein Albumin Stool Occult Blood Blood Type Antibody Screen Crossmatch 07/14/23 07/14/23 07/14/23 09:17 09:17 09:17 WBC RBC Hgb Hct MCV MCH MCHC RDW Plt Count MPV Absolute Nucleated RBC Nucleated RBC % (auto) Sodium Potassium Chloride Carbon Dioxide 25 Anion Gap 12 11 L BUN 19 H 19 H Creatinine 0.75 Estim Creat Clear Calc Estimated GFR Random Glucose Calcium Total Bilirubin AST ALT Alkaline Phosphatase Total Protein Albumin Stool Occult Blood Blood Type Antibody Screen Crossmatch 07/14/23 07/14/23 07/14/23 09:17 09:17 09:17 WBC RBC Hgb Hct MCV MCH MCHC RDW Plt Count MPV Absolute Nucleated RBC Nucleated RBC % (auto) Sodium Potassium Chloride Carbon Dioxide Anion Gap BUN Creatinine 0.73 Estim Creat Clear Calc 47.3 48.7 Estimated GFR > 60 > 60 Random Glucose 110 Calcium Total Bilirubin AST ALT Alkaline Phosphatase Total Protein Albumin Stool Occult Blood Blood Type Antibody Screen Crossmatch 04/10/24 04/10/24 04/11/24 09:17 09:17 08:22 WBC RBC Hgb 8.3 L Hct 27.2 L MCV MCH MCHC RDW Plt Count MPV Absolute Nucleated RBC Nucleated RBC % (auto) Sodium Potassium Chloride Carbon Dioxide Anion Gap BUN Creatinine Estim Creat Clear Calc Estimated GFR Random Glucose 111 Calcium 9.5 9.8 Total Bilirubin 4.9 H AST 18 ALT 13 Alkaline Phosphatase 86 Total Protein 6.9 Albumin 4.3 Stool Occult Blood Blood Type Antibody Screen Crossmatch 07/16/23 07/16/23 06:02 12:32 WBC 7.0 RBC 4.30 Hgb 9.4 L Hct 31.3 L MCV 72.8 L MCH 21.9 L MCHC 30.0 L RDW 22.4 H Plt Count 292 MPV 9.7 Absolute Nucleated RBC 0.000 Nucleated RBC % (auto) 0.0 Sodium 135 Potassium 4.5 Chloride 100 Carbon Dioxide 26 Anion Gap 14 BUN 10 Creatinine 0.71 Estim Creat Clear Calc 50.1 Estimated GFR > 60 Random Glucose 98 Calcium 10.2 Total Bilirubin AST ALT Alkaline Phosphatase Total Protein Albumin Stool Occult Blood Blood Type B Negative Antibody Screen NEGATIVE Crossmatch Airway Mallampati Class: II TM Dist: >3cm Neck ROM: Limited Heart: afib Lungs: cta Assessment and Plan Assessment Anesthesia Assessment: Anesthesia Plan Discussed and Chart Reviewed Final Anesthetic Review Family History of Problems with Anesthesia: No History of Problems with Anesthesia: No NPO: Yes ASA Class: III Final Preanesthetic Review: No Changes in Pt Med Stat, Meds/Allgs Chart Reviewed, Consent Obtained/Reviewed and Anes Risks/Benef Reviewed Patient Risk: Intermediate Procedure Risk: Intermediate Anesthetic Plan Anesthetic Plan: MAC: Disposition: Standard PACU
--- NOTE | 2023-07-16 14:33 | P.OP_ITS ---
Operative Note Operative Note Date of Service: 07/16/23 Narrative: Operative Information Procedure Description: EGD, Colonoscopy Indication: Anemia Anesthesia: MAC FLEXIBLE TRANSORAL UPPER GASTROINTESTINAL ENDOSCOPY AND COLONOSCOPY PROCEDURE NOTE UPPER ENDOSCOPY Consent: Indications for the procedure and potential complications of bleeding, perforation, reaction to medications and missed diagnosis were discussed with the patient and informed consent was obtained. Instrument: Olympus GIF H 190 J mid size upper endoscope Monitoring: Vital signs and clinical assessment, continuous EKG monitoring, Pulse oximetry, Carbon Dioxide monitoring and blood pressure monitoring were done throughout the procedure. Procedure: The patient was placed in the left lateral decubitis position and pre-procedure medications were administered and a bite block was placed. The endoscope was inserted into the mouth and advanced under direct vision to the third part of duodenum. A careful inspection was made as the upper endoscope was withdrawn including a retroflexed examination of the proximal stomach; Findings and interventions are described below. Findings: Larynx:normal Esophagus: GE junction at 32 cm, diaphragm hiatus at 42 cm, normal mucosa Stomach: fundic gland polyps. Biopsies were obtained. Grade 2 flap valve on retroflexed examination of the cardia. Duodenum: Normal bulb and descending duodenum, bx taken Intervention: Biopsies as noted above, COLONOSCOPY Instrument: Olympus variable stiffness pediatric scope 190L Colonoscopy Monitoring: Vital signs and clinical assessment, continuous EKG monitoring, Pulse oximetry, Carbon Dioxide monitoring and blood pressure monitoring were done throughout the procedure. Colon withdrawal time was 35 minutes. Procedure: The patient was placed in the left lateral decubitis position and pre-procedure medications were administered. After a digital rectal examination of the ano-rectum, the video colonoscope was inserted into the rectum and advanced through the colon to the cecum/TI. The colonoscope was slowly withdrawn in a retrograde panoramic fashion and the colon mucosa was carefully examined including a retroflexed view of the rectum. Findings and interventions are described below. 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 Transverse Colon -normal Descending Colon:normal Sigmoid Colon: severe diverticulosis, 18-20 mm pedunculated polyp injected with epinephrine and then removed with hot snare with 2 clips applied to the stalk for hemostasis. 10 mm sessile polyp removed with cold snare Rectum: Retroflexion with small internal hemorrhoids, grade I Anorectum - normal Colon preparation: [place] Bowel Preparation Scale Right colon; 2 Transverse colon: 2 Left colon; 2 (0 = Unprepared colon segment with mucosa not seen due to solid stool that cannot be cleared. 1 = Portion of mucosa of the colon segment seen, but other areas of the colon segment not well seen due to staining, residual stool and/or opaque liquid. 2 = Minor amount of residual staining, small fragments of stool and/or opaque liquid, but mucosa of colon segment seen well. 3 = Entire mucosa of colon segment seen well with no residual staining, small fragments of stool or opaque liquid) Impression and Post Procedure Diagnosis: Endoscopy Findings: hiatal hernia Colonoscopy Findings: diverticulosis colon polyps internal hemorrhoids Plan: Await Pathology results Repeat Colonoscopy in 6-8 weeks or earlier if clinically indicated High fiber diet leaflet avoid straining at stool, epsom salts and sitz bath, anusol supps or cream hold eliquis for at least 5 days, avoid nsaids Above findings were reviewed with the patient and relevant handouts were provided if indicated.
[2023-07-16] MEDS: Valsartan 320 MG TABLET PO (16:48)
[2023-07-16] MEDS: Omeprazole 20 MG CAPSULE.DR PO (16:49)
[2023-07-16] MEDS: Digoxin 0.125 MG TABLET PO (16:49)
--- NOTE | 2023-07-16 17:03 | P.PNIM_ITS ---
Subjective Subjective Date of Service: 07/16/23 Interval History: seen and examined this morning follow up for GI bleed H/H has remained stable, no further bleeding noted Review of Systems Review of Systems: Yes all other systems are reviewed and are negative Constitutional Constitutional: Denies chills and Denies fever(s) Cardiovascular Cardiovascular: Denies chest pain, Denies palpitations and Denies dyspnea Respiratory Respiratory: Denies cough and Denies dyspnea Gastrointestinal Gastrointestinal: Denies abdominal pain, Denies nausea and Denies vomiting Endocrine Endocrine: Denies palpitations Physical Exam 2 Vital Signs: Vital Signs: Last Vital Signs Temp 97.9 F 07/16/23 16:15 Pulse 74 07/16/23 16:15 Resp 20 07/16/23 16:15 BP 129/63 07/16/23 16:15 Pulse Ox 92 07/16/23 16:15 O2 Del Method Room Air 07/16/23 16:15 BMI result Body Mass Index 25.9 Const: General: cooperative, comfortable, no acute distress, alert and awake Nutritional Appearance: average body habitus Orientation/consciousness: p atient oriented x3 Resp: Effort & Inspection: normal respiratory effort, able to speak in complete sentences, no respiratory distress and no use of accessory muscles Cardio: Rate: regular rate GI: Inspection: No distended Palpation (GI): Soft to palpation and nontender Neuro: General: patient oriented x3, moves all extremities and CN's II-XI intact bilaterally Extrem: Other: 1+ b/l leg edema Objective Data Active Medications Acetaminophen (Acetaminophen 325 Mg Tablet) 650 mg PO Q6H PRN PRN Reason: Pain, Mild (Pain Scale 1-3) Last Admin: 07/15/23 06:13 Dose: 650 mg Documented By: BRENDA Atorvastatin Calcium (Atorvastatin Calcium 10 Mg Tablet) 10 mg PO DAILY [facility] Last Admin: 07/16/23 08:50 Dose: Not Given Documented By: JOSE Non-Admin Reason: Physician Held Med Digoxin (Digoxin 0.125 Mg Tablet) 0.125 mg PO DAILY@1800 [facility] Last Admin: 07/16/23 16:49 Dose: 0.125 mg Documented By: JOSE Hydralazine HCl (Hydralazine Hcl 25 Mg Tablet) 25 mg PO BID [facility]; Protocol Last Admin: 07/15/23 07:48 Dose: 25 mg Documented By: MARION Levothyroxine Sodium (Levothyroxine Sodium 100 Mcg Tablet) 100 mcg PO DAILY@0600 [facility] Last Admin: 07/16/23 05:45 Dose: Not Given Documented By: BRENDA Non-Admin Reason: NPO Metoprolol Succinate (Metoprolol Succinate Er 50 Mg Tab.Er.24h) 50 mg PO BID [facility]; Protocol Last Admin: 07/16/23 08:49 Dose: 50 mg Documented By: JOSE Nifedipine (Nifedipine Er 30 Mg Tab.Er.24) 30 mg PO DAILY@0900 [facility]; Protocol Last Admin: 07/16/23 08:50 Dose: Not Given Documented By: JOSE Non-Admin Reason: Physician Held Med Omeprazole (Omeprazole 20 Mg Capsule.Dr) 20 mg PO BID@0630,1630 [facility] Last Admin: 07/16/23 16:49 Dose: 20 mg Documented By: JOSE Ondansetron HCl (Ondansetron Hcl 4 Mg/2 Ml Vial) 4 mg IVPUSH Q8H PRN PRN Reason: Nausea and Vomiting Sodium Chloride (0.9 % Sodium Chloride Flush 3 Ml Syringe) 3 ml IVFLUSH QSHIFT [facility] Last Admin: 07/16/23 16:49 Dose: 3 ml Documented By: JOSE Valsartan (Valsartan 320 Mg Tablet) 320 mg PO DAILY@1200 [facility]; Protocol Last Admin: 07/16/23 16:48 Dose: 320 mg Documented By: JOSE Comments: s/p endoscopy and colonoscopy. BP 181/88. provider ok to give now Labs 07/16/23 06:02 07/16/23 06:02 Labs: Laboratory Results - last 24 hr 07/16/23 07/16/23 06:02 12:32 MCV 72.8 L MCH 21.9 L MCHC 30.0 L RDW 22.4 H Plt Count 292 MPV 9.7 Absolute Nucleated RBC 0.000 Nucleated RBC % (auto) 0.0 Anion Gap 14 Estim Creat Clear Calc 50.1 Estimated GFR > 60 Random Glucose 98 Calcium 10.2 Blood Type B Negative Antibody Screen NEGATIVE Assessment and Plan (1) Anemia: Status: Acute (2) Acute GI bleeding: Status: Acute Plan This is an 87 year old women admitted with acute blood loss anemia secondary to possible GI bleed on eliquis Acute blood loss anemia secondary to GI bleeding unspecified. s/p 2 units prbc in the ED with good rise in H&H seen by GI - s/p endoscopy/colonoscopy 07/15: Endoscopy Findings:hiatal hernia Colonoscopy Findings: diverticulosis, two polyps removed, internal hemorrhoids Plan: Await Pathology results Repeat Colonoscopy in 6-8 weeks or earlier if clinically indicated High fiber diet avoid straining at stool, epsom salts and sitz bath, anusol supps or cream hold eliquis for at least 5 days, avoid nsaids repeat CBC in am Hypothyroidism TSH 20.21 levothyroxine was recently decreased down to 75mg from 100 will continue with 100 mcg Hypertension stable BP continue home medications Atrial fibrillation Hold eliquis due to GI bleed continue digoxin, metoprolol DVT prophylaxis with SCD boots Attending Dr. Cruz DNR Requires ongoing inpatient stay for close monitoring of anemia due to likely GI bleeding with need for specialist evaluation and inpatient procedure. Due to patient's age and other comorbidities she is at high risk for decompensation therefore this can not be done at a lesser acute setting. Quality Stroke Does the patient have a stroke diagnosis?: No VTE Prior VTE?: No VTE Risk Level:: Medical - moderate - high VTE Device Contraindication: N/A - Device Ordered VTE Drug Contraindication: Treatment Not Indicated
[2023-07-17 03:21] VITALS: BP 162/80; PULSE 78; RESP 16; TEMP 36.7; O2SAT 92
--- NOTE | 2023-07-17 05:39 | ECG_ITS ---
Test Reason : cp Blood Pressure : / mmHG Vent. Rate : 074 BPM Atrial Rate : 000 BPM P-R Int : 000 ms QRS Dur : 112 ms QT Int : 374 ms P-R-T Axes : 000 054 -26 degrees QTc Int : 415 ms Atrial fibrillation Low voltage QRS Right bundle branch block Abnormal ECG When compared with ECG of 13-JUL-2023 15:10, No significant change was found Referred By: Beronica Johnson Electronically Signed By:Douglas Smith
[2023-07-17] MEDS: Omeprazole 20 MG CAPSULE.DR PO ×2 (06:04→16:42)
[2023-07-17] MEDS: Levothyroxine Sodium 100 MCG TABLET PO (06:04)
--- NOTE | 2023-07-17 06:11 | PC.NURSE ---
Around 05:00, this RN was notified by [facility] that the pt's HR went to the 20s- A.fib, pt asymptomatic, A&Ox4. Nursing teller supervisor and MD Gerber was notified of the situation. Pt BP was checked 164/80. EKG was ordered. Cardio consult pending. Pt to be transferred to med/teley. Will continue to monitor pt's HR.
--- NOTE | 2023-07-17 06:23 | ECG_ITS ---
Test Reason : tach[place]ia Blood Pressure : / mmHG Vent. Rate : 155 BPM Atrial Rate : 000 BPM P-R Int : 000 ms QRS Dur : 074 ms QT Int : 284 ms P-R-T Axes : 000 019 126 degrees QTc Int : 456 ms Atrial fibrillation with rapid ventricular response Nonspecific ST and T wave abnormality Abnormal ECG When compared to the previous EKG of Rapid ventricular response present Nonspecific T wave abnormality no longer evident in Anterior leads Referred By: Beronica Johnson Electronically Signed By:Douglas Smith
--- NOTE | 2023-07-17 07:12 | PM.DS ---
DS: Providers Provider Date of admission: 07/13/23 17:33 Primary care physician: Cesar Estrada MD Consults: 07/13/23 17:35 Consult to Gastroenterology Routine Consulting Provider: Mike Ruiz Reason for consultation: gi bleed, anemia DS: Diagnosis Discharge Diagnosis (1) Anemia: Status: Acute (2) Acute GI bleeding: Status: Acute Physical Exam Vital Signs: Vital Signs: Last Vital Signs Temp 98.0 F 07/17/23 03:21 Pulse 78 07/17/23 03:21 Resp 16 07/17/23 03:21 BP 162/80 H 07/17/23 03:21 Pulse Ox 92 07/17/23 03:21 O2 Del Method Room Air 07/17/23 03:21 BMI result Body Mass Index 25.9 DS: Data Data Completed and Pending Completed studies during hospitalization [Text1]: Procedures Reposition Right Fibula, External Approach (02/08/21) Reposition Right Tibia with Internal Fixation Device, Open Approach (02/08/21) Reposition Right Tibia, External Approach (02/08/21) Pending studies at discharge: Pending at discharge 07/16/23 15:28 Surgical [PTH] Routine Labs on day of discharge: Laboratory Results - last 24 hr 07/16/23 12:32 Blood Type B Negative Antibody Screen NEGATIVE Discharge Plan Discharge Referrals: Cesar Estrada MD [Primary Care Provider] - 1 Week Discharge Medications: No Action atorvastatin 10 mg tablet 10 mg PO DAILY valsartan 320 mg tablet 320 mg PO DAILY@1200 estradiol 0.01 % (0.1 mg/gram) cream 1 g vaginal SUWE hydralazine 25 mg Tablet 25 mg PO BID 30 Days Qty: 60 0RF Protocol: Hold for SBP< HOLD for SBP < : 90 omeprazole 20 mg capsule,delayed release(DR/EC) 20 mg PO DAILY@0630 metoprolol succinate 50 mg tablet extended release 24 hr 50 mg PO BID digoxin [Digox] 125 mcg (0.125 mg) tablet 125 mcg PO DAILY@1800 levothyroxine 75 mcg Tablet 75 mcg PO DAILY@0600 nifedipine 30 mg tablet extended release 24hr 30 mg PO DAILY@0900 Protocol: Hold for SBP< HOLD for SBP < : 90 Eliquis 5 mg tablet 5 mg PO BID Print Language: Nicaraguan
[2023-07-17 07:32] VITALS: BP 180/72; PULSE 67; RESP 18; TEMP 36.3; O2SAT 94
[2023-07-17] MEDS: Metoprolol Succinate ER 50 MG TAB.ER.24H PO ×2 (08:07→19:56)
[2023-07-17] MEDS: Atorvastatin Calcium 10 MG TABLET PO (08:07)
[2023-07-17] MEDS: NIFEdipine ER 30 MG TAB.ER.24 PO (08:08)
[2023-07-17] MEDS: 0.9 % Sodium Chloride Flush 3 ML SYRINGE IVFLUSH ×3 (08:10→19:56)
[2023-07-17 08:20] LABS: Hematocrit 29.3 % (37.0-47.0); Hemoglobin 8.9 g/dl (12.0-16.0)
[2023-07-17 10:32] VITALS: BP 103/69; PULSE 69
--- NOTE | 2023-07-17 10:34 | HO.PM.IMPN ---
Subjective Subjective Date of Service: 07/17/23 Interval History: seen and examined this morning follow up for GI bleed Slight drop in H/H at 8.9/29.3% (9.4/31.3% yesterday) Overnight HR dropped into 20s overnight, no blocks. Afib. Asymptomatic Review of Systems Review of Systems: Yes all other systems are reviewed and are negative Constitutional Constitutional: Denies chills and Denies fever(s) Cardiovascular Cardiovascular: Denies chest pain, Denies palpitations and Denies dyspnea Respiratory Respiratory: Denies cough and Denies dyspnea Gastrointestinal Gastrointestinal: Denies abdominal pain, Denies nausea and Denies vomiting Endocrine Endocrine: Denies palpitations Physical Exam Vital Signs: Vital Signs: Last Vital Signs Temp 97.4 F 07/17/23 07:32 Pulse 69 07/17/23 10:32 Resp 18 07/17/23 07:32 BP 103/69 07/17/23 10:32 Pulse Ox 94 07/17/23 07:32 O2 Del Method Room Air 07/17/23 07:32 BMI result Body Mass Index 25.9 Constitutional - Awake and Alert, No apparent distress Eyes - PERRLA, EOMI Cardiovascular - S1S2, RRR, No edema Respiratory - Normal lung expansion, Normal respiratory effort, No respiratory distress, CTA bilaterally Gastrointestinal - NT / ND; +BS; No rebound or guarding Extremities - no calf tenderness bilaterally, no swelling Skin - Warm/Dry Neurological - Alert & oriented x3 Psychological - Appropriate affect Objective Data Active Medications Acetaminophen (Acetaminophen 325 Mg Tablet) 650 mg PO Q6H PRN PRN Reason: Pain, Mild (Pain Scale 1-3) Last Admin: 07/15/23 06:13 Dose: 650 mg Documented By: BRENDA Atorvastatin Calcium (Atorvastatin Calcium 10 Mg Tablet) 10 mg PO DAILY [facility] Last Admin: 07/17/23 08:07 Dose: 10 mg Documented By: JOSE Digoxin (Digoxin 0.125 Mg Tablet) 0.125 mg PO DAILY@1800 [facility] Last Admin: 07/16/23 16:49 Dose: 0.125 mg Documented By: JOSE Hydralazine HCl (Hydralazine Hcl 25 Mg Tablet) 25 mg PO BID [facility]; Protocol Last Admin: 07/15/23 07:48 Dose: 25 mg Documented By: MARION Levothyroxine Sodium (Levothyroxine Sodium 100 Mcg Tablet) 100 mcg PO DAILY@0600 [facility] Last Admin: 07/17/23 06:04 Dose: 100 mcg Documented By: RACHELL Metoprolol Succinate (Metoprolol Succinate Er 50 Mg Tab.Er.24h) 50 mg PO BID [facility]; Protocol Last Admin: 07/17/23 08:07 Dose: 50 mg Documented By: JOSE Nifedipine (Nifedipine Er 30 Mg Tab.Er.24) 30 mg PO DAILY@0900 [facility]; Protocol Last Admin: 07/17/23 08:08 Dose: 30 mg Documented By: JOSE Omeprazole (Omeprazole 20 Mg Capsule.Dr) 20 mg PO BID@0630,1630 [facility] Last Admin: 07/17/23 06:04 Dose: 20 mg Documented By: RACHELL Ondansetron HCl (Ondansetron Hcl 4 Mg/2 Ml Vial) 4 mg IVPUSH Q8H PRN PRN Reason: Nausea and Vomiting Sodium Chloride (0.9 % Sodium Chloride Flush 3 Ml Syringe) 3 ml IVFLUSH QSHIFT [facility] Last Admin: 07/17/23 08:10 Dose: 3 ml Documented By: JOSE Valsartan (Valsartan 320 Mg Tablet) 320 mg PO DAILY@1200 [facility]; Protocol Last Admin: 07/16/23 16:48 Dose: 320 mg Documented By: JOSE Comments: s/p endoscopy and colonoscopy. BP 181/88. provider ok to give now Labs 07/17/23 08:07 07/16/23 06:02 Labs: Laboratory Results - last 24 hr 07/16/23 12:32 Blood Type B Negative Antibody Screen NEGATIVE Assessment and Plan (1) Anemia: Status: Acute (2) Acute GI bleeding: Status: Acute (3) Bradycardia: Status: Acute Plan This is an 87 year old women admitted with acute blood loss anemia secondary to possible GI bleed on eliquis Acute blood loss anemia secondary to GI bleeding unspecified. s/p 2 units prbc in the ED with good rise in H&H seen by GI - s/p endoscopy/colonoscopy 07/15: Endoscopy Findings:hiatal hernia Colonoscopy Findings: diverticulosis, two polyps removed, internal hemorrhoids Plan per GI: Await Pathology results Repeat Colonoscopy in 6-8 weeks or earlier if clinically indicated High fiber diet avoid straining at stool, epsom salts and sitz bath, anusol supps or cream hold eliquis for at least 5 days, avoid nsaids repeat CBC in am Hypothyroidism TSH 20.21 levothyroxine was recently decreased down to 75mg from 100 will continue with 100 mcg Bradycardia etiology unclear, asymptomatic Isolated. HR on tele monitor noted to be in 20's, but HR's records as normal on VS otherwise overnight. EKG at that time afib, rate 74 no blocks. Repeat EKG 40 minutes later, afib rvr rate 155. HR 60-70s on exam Continue home meds cardiology consult, monitor on tele Hypertension stable BP continue home medications. Hydralazine on hold. Await cardiology recs Atrial fibrillation Hold eliquis due to GI bleed continue digoxin, metoprolol DVT prophylaxis with SCD boots DNR Requires ongoing inpatient stay for close monitoring of anemia due to likely GI bleeding with need for specialist evaluation and inpatient procedure, post operatively developed bradycardia overnight and will require ongoing cardiac monitoring and expert consultation. Due to patient's age and other comorbidities she is at high risk for decompensation therefore this can not be done at a lesser acute setting. Quality Stroke Does the patient have a stroke diagnosis?: No VTE Prior VTE?: No VTE Risk Level:: Medical - moderate - high VTE Device Contraindication: N/A - Device Ordered VTE Drug Contraindication: Treatment Not Indicated
[2023-07-17 11:15] VITALS: BP 147/73; PULSE 70; RESP 18; TEMP 36.5; O2SAT 96
[2023-07-17] MEDS: Valsartan 320 MG TABLET PO (11:31)
--- NOTE | 2023-07-17 12:54 | PM.CNCAR ---
History of Present Illness History of Present Illness Date of Service: 07/17/23 Requesting physician: Beronica Johnson Chief complaint: GI bleed, afib Narrative: 87-year-old female presenting with anemia and GI bleed. She has permanent atrial fibrillation and was treated with rate control strategy with digoxin and metoprolol succinate 50 mg twice a day. She had undergone endoscopy and has been off anticoagulation while in the hospital. She was noticed to have some bradycardic episodes at night when she was sleeping. This was noticed on telemetry. She also had some tachycardic episodes which looks like AFib versus flutter. She has been off her metoprolol. She has no current symptoms. She is saying that she has been advised to resume her anticoagulation in 5 days after discharge. Telemetry reviewed. [facility] Past Medical History Medical History Hyponatremia Hypothyroid Alcohol intoxication Fall Closed trimalleolar fracture of ankle High cholesterol Vaso-vagal reaction HTN (hypertension) Family History Family History Father Angina at rest Social History Social History Household Members: None Housing: House Do you presently have visiting nurse or other home services: No Alcohol intake: current Alcohol intake frequency: a few times a week Patient Tobacco Use Status: Never used Tobacco Smoked in Last 30 Days: No Use of substances other than those prescribed or required for medical reasons: No Currently Displaying Signs/Symptoms of Drug Intoxication Withdrawal: No Advance Directives: No Advance Directives Information Provided: No Do you have thoughts of harming others: None Do you have a plan to hurt others: No Plan Eating poorly because of decreased appetite: No Nutrition Risks: No Nutritional Risk Patient : No : No Poor oral hygiene: No service: No Current occupational status: retired Current occupation: [employer] Meds Allergies Allergy/AdvReac Type Severity Reaction Status Date / Time No Known Allergies Allergy Verified 07/13/23 15:03 [No Known Allergies*] Active Medications: Current Medications Acetaminophen (Acetaminophen 325 Mg Tablet) 650 mg PO Q6H PRN PRN Reason: Pain, Mild (Pain Scale 1-3) Last Admin: 07/15/23 06:13 Dose: 650 mg Atorvastatin Calcium (Atorvastatin Calcium 10 Mg Tablet) 10 mg PO DAILY [facility] Last Admin: 07/17/23 08:07 Dose: 10 mg Digoxin (Digoxin 0.125 Mg Tablet) 0.125 mg PO DAILY@1800 [facility] Last Admin: 07/16/23 16:49 Dose: 0.125 mg Hydralazine HCl (Hydralazine Hcl 25 Mg Tablet) 25 mg PO BID [facility]; Protocol Last Admin: 07/15/23 07:48 Dose: 25 mg Levothyroxine Sodium (Levothyroxine Sodium 100 Mcg Tablet) 100 mcg PO DAILY@0600 [facility] Last Admin: 07/17/23 06:04 Dose: 100 mcg Metoprolol Succinate (Metoprolol Succinate Er 50 Mg Tab.Er.24h) 50 mg PO BID [facility]; Protocol Last Admin: 07/17/23 08:07 Dose: 50 mg Nifedipine (Nifedipine Er 30 Mg Tab.Er.24) 30 mg PO DAILY@0900 [facility]; Protocol Last Admin: 07/17/23 08:08 Dose: 30 mg Omeprazole (Omeprazole 20 Mg Capsule.Dr) 20 mg PO BID@0630,1630 [facility] Last Admin: 07/17/23 06:04 Dose: 20 mg Ondansetron HCl (Ondansetron Hcl 4 Mg/2 Ml Vial) 4 mg IVPUSH Q8H PRN PRN Reason: Nausea and Vomiting Sodium Chloride (0.9 % Sodium Chloride Flush 3 Ml Syringe) 3 ml IVFLUSH QSHIFT [facility] Last Admin: 07/17/23 08:10 Dose: 3 ml Valsartan (Valsartan 320 Mg Tablet) 320 mg PO DAILY@1200 [facility]; Protocol Last Admin: 07/17/23 11:31 Dose: 320 mg Home Medications ?Medication ?Instructions ?Recorded ?Confirmed ?Last Taken ?Type atorvastatin 10 mg tablet 10 mg PO DAILY 02/08/21 07/13/23 07/13/23 History estradiol 0.01% (0.1 mg/gram) 1 g vaginal SUWE 02/08/21 07/13/23 07/12/23 History vaginal cream valsartan 320 mg tablet 320 mg PO DAILY@1200 02/08/21 07/13/23 07/13/23 History nifedipine 30 mg tablet,extended 30 mg PO DAILY@0904/13/22 07/13/2309/24 History release 24 hr omeprazole 20 mg capsule,delayed 20 mg PO DAILY@0630 04/13/22 07/13/23 07/13/23 History release apixaban 5 mg tablet (Eliquis) 5 mg PO BID 10/13/22 07/13/23 07/13/23 History metoprolol succinate 50 mg 50 mg PO BID 10/13/22 07/13/23 07/13/23 History tablet,extended release 24 hr digoxin 125 mcg (0.125 mg) tablet 125 mcg PO DAILY@1800 07/13/23 07/13/23 07/12/23 History (Digox) levothyroxine 75 mcg tablet 75 mcg PO DAILY@0600 07/13/23 07/13/23 07/13/23 History Physical Exam Vital Signs: Vital Signs: Last Vital Signs Temp 97.7 F 07/17/23 11:15 Pulse 70 07/17/23 11:15 Resp 18 07/17/23 11:15 BP 147/73 H 07/17/23 11:15 Pulse Ox 96 07/17/23 11:15 O2 Del Method Room Air 07/17/23 11:15 BMI result Body Mass Index 25.9 GENERAL APPEARANCE: in no acute distress, pleasant. NECK: no carotid bruit, no jugular venous distention. SKIN: no suspicious lesions, warm and dry. HEART: no murmurs, irregular rate and rhythm. LUNGS: clear to auscultation bilaterally. ABDOMEN: soft, nontender. EXTREMITIES: no edema. PERIPHERAL PULSES: equal. NEUROLOGIC: No gross deficits, AAO X 3 Objective Labs and Meds 07/17/23 08:07 07/16/23 06:02 Lab results: Laboratory Results - last 24 hr 07/16/23 07/17/23 12:32 08:07 Hgb 8.9 L Hct 29.3 L Blood Type B Negative Antibody Screen NEGATIVE Assessment and Plan (1) Bradycardia: Status: Acute (2) Atrial fibrillation with rapid ventricular response: Status: Acute Plan 87-year-old female presenting for GI blood loss on anticoagulation for atrial fibrillation. Endoscopy has shown diverticulosis, colon polyps and internal hemorrhoids. She was advised to resume Eliquis in 5 days. She has been noticed to have some slow heart rates at nighttime. This is normal during sleep hours. While awake she does not have any bradycardic episodes. She did have some tachycardic episodes with AFib versus flutter. Resume the metoprolol succinate. If blood pressure stays stable then resume other hypertensive medications slowly. We will follow along with you. She will follow up with Dr. Puentes after discharge. Thank you for allowing me to participate in the care of your patient. Please feel free to contact me if you have any questions. Procedures Date of Service Date of Service: 07/17/23
[2023-07-17 13:20] LABS: Hematocrit 32.7 % (37.0-47.0)
[2023-07-17 13:33] LABS: Digoxin 0.6 ng/mL (0.8-2.0)
--- NOTE | 2023-07-17 14:51 | HO.POSTANES ---
Post Anesthesia Evaluation Post Anesthesia Evaluation Date of Service: 07/17/23 Vital Signs: Vital Signs Temp Pulse Resp BP Pulse Ox O2 Del Method 07/17/23 11:15 97.7 F 70 18 147/73 H 96 Room Air 07/17/23 10:32 69 103/69 07/17/23 07:32 97.4 F 67 18 180/72 H 94 Room Air 07/17/23 03:21 98.0 F 78 16 162/80 H 92 Room Air Anesthesia: TIVA Mental Status: Awake Pain Control: Satisfactory Nausea/Vomiting: None Hydration: Adequate Anesthesia-Related Issues: No Anes. Related Issues
[2023-07-17 15:25] VITALS: BP 136/73; PULSE 71; RESP 19; TEMP 36.3; O2SAT 94
[2023-07-17] MEDS: Digoxin 0.125 MG TABLET PO (16:42)
[2023-07-17 19:03] VITALS: BP 144/74; PULSE 74; RESP 20; TEMP 36.3; O2SAT 95
[2023-07-18] VITALS: BP 137/78; PULSE 65; RESP 20; TEMP 36.1; O2SAT 95
--- NOTE | 2023-07-18 | ECG_ITS ---
Test Reason : cp Blood Pressure : / mmHG Vent. Rate : 130 BPM Atrial Rate : 258 BPM P-R Int : 000 ms QRS Dur : 088 ms QT Int : 336 ms P-R-T Axes : 248 022 -23 degrees QTc Int : 494 ms Atrial flutter vs Atrial fibrillation with rapid rate Nonspecific ST abnormality Premature ventricular complexes vs aberrant conduction Abnormal ECG When compared with ECG of 17-JUL-2023 06:23, No significant changes seen Referred By: Beronica Johnson Electronically Signed By:MARY REYNOSO
[2023-07-18 03:02] VITALS: BP 169/83; PULSE 65; RESP 20; TEMP 36.2; O2SAT 95
[2023-07-18] MEDS: Levothyroxine Sodium 100 MCG TABLET PO (05:49)
[2023-07-18] MEDS: Omeprazole 20 MG CAPSULE.DR PO (05:49)
--- NOTE | 2023-07-18 07:22 | P.DS_ITS ---
DS: Providers Provider Date of Service: 07/18/23 Date of admission: 07/13/23 17:33 Date of discharge: 07/18/23 Primary care physician: Cesar Estrada MD Admitting clinician: Mara Loja Attending physician on admission: Jaspreet Perez Consults: 07/13/23 17:35 Consult to Gastroenterology Routine Consulting Provider: Mike Ruiz Reason for consultation: gi bleed, anemia 07/17/23 10:40 Consult to Cardiology Routine Consulting Provider: [facility] Cardiovascular Services Reason for consultation: bradycardia 20s overnight Attending physician on discharge: Kaila Fontaine Discharging clinician: Beronica Johnson DS: Diagnosis Discharge Diagnosis (1) Bradycardia: Status: Acute (2) Atrial fibrillation with rapid ventricular response: Status: Acute DS: Summary Hospital Course Hospital Course: HPI on admission by Mara Loja NP on 07/12: Chief Complaint: weakness 87-year-old woman presenting to the ER with weakness over the last couple of days. She is legally blind, lives alone but her daughter lives next door. She is pretty active in her home and able to do some cooking and cleaning. She reported feeling unwell more recently. She was started on Eliquis 07/14/2022 for atrial fibrillation. She denied any recent bright red blood per rectum or black stools. She denied chest pain, shortness for breath, nausea, vomiting, diarrhea. She did report some increase in swelling in her lower extremities over the last few months. In the ER EKG showed atrial fibrillation with right bundle branch block, hemoglobin 6.8, hematocrit 24.6, TSH 20.21, urine culture slightly positive, stool occult positive. To orders packed red blood cells was ordered and the patient received 2 L of IV fluids. She will be admitted for further management and treatment of acute GI bleed with acute blood loss anemia. Hospital course: Pt admitted to [facility] for management of acute blood loss anemia due to suspected upper GI bleed. Was treated with IV PPI and seen by GI recommending EGD and colonoscopy following transfusion 2 units packed red blood cells. EGD revealed hiatal hernia and colonoscopy showed 2 polyps, one moderate-large 1.6- 2cm laterally spreading granular polyp removed and clipped with biopsy path report pending on discharge. There were also internal hemorrhoids and severe diverticulosis noted. No evidence of active bleeding. Blood counts were followed throughout stay and were noted to be stable. Diet was successfully advanced. She was continue on omeprazole 20mg BID for hiatal hernia and started on proctofoam for hemorrhoids. Can continue BID on discharge. High fiber diet. GI recommending repeat colonoscopy in 6-8weeks along with sitz baths, high fiber diet, and avoidance of straining. Avoidance of NSAIDS. Course was briefly complicated by episodes of transient bradycardia in 20s-30s and transfient afib/flutter with rvr in the 150s while asleep. No intervention indicated, reverted to NSR spontaneously. Evaluated by cardiology. Given HR 60-80 while awake and no concerning av ry blocks on tele, no further intervention required. Continued on metoprolol, nifedipine, and valsartan at recommendation of cardiology. Blood pressures stable and hydralazine was discontinued as a result. Eliquis remained on hold throughout admission. Per GI, recommend resuming after 5-7 days. Avoid NSAIDs. Incidentally found was elevated TSH of 20.21, normal free t4. Levothyroxine increased to 100mcg daily. Advised to follow up with pcp for repeat tsh/free t4 in 4-6 weeks. Follow up with GI for repeat colonoscopy as above. Follow up with cardiology in 2 weeks as scheduled. Pt will be discharged home. Discussed with patient's daughter, Florence, who assists with her care. Status at Discharge Overall status at discharge: patient is progressing back to baseline Time Attestation Discharge Coordination Time (in mins): 45 Quality: Safe Use of Opioids Does Pt have an Active Cancer Diagnosis on the Problem List?: No Quality: Stroke Does the patient have a stroke diagnosis?: No Physical Exam Vital Signs: Vital Signs: Last Vital Signs Temp 97.1 F 07/18/23 03:02 Pulse 65 07/18/23 03:02 Resp 20 07/18/23 03:02 BP 169/83 H 07/18/23 03:02 Pulse Ox 95 07/18/23 03:02 O2 Del Method Room Air 07/18/23 03:02 BMI result Body Mass Index 25.9 DS: Data Data Completed and Pending Completed studies during hospitalization [Text1]: Procedures Reposition Right Fibula, External Approach (02/08/21) Reposition Right Tibia with Internal Fixation Device, Open Approach (02/08/21) Reposition Right Tibia, External Approach (02/08/21) Pending studies at discharge: Pending at discharge 07/16/23 15:28 Surgical [PTH] Routine Labs on day of discharge: Laboratory Results - last 24 hr 07/17/23 07/17/23 08:07 13:11 Hgb 8.9 L 10.0 L Hct 29.3 L 32.7 L Digoxin 0.6 L Discharge Plan Discharge Anticipated Discharge Date/Time: 07/18/23 09:24 Patient Disposition: Home, Self-Care Discharge Diagnosis: GI bleed Referrals: Cesar Estrada MD [Primary Care Provider] - 1 Week Mike Ruiz MD [Physician] - 1 Week Louis Puentes MD [Physician] - 1 Week Discharge Medications: New levothyroxine [Synthroid] 100 mcg Tablet 100 mcg PO DAILY@0600 Qty: 90 0RF omeprazole 20 mg Capsule,Delayed Release(Dr/Ec) 20 mg PO BID@0630,1630 Qty: 180 0RF pramoxine 1 % Foam 1 appl [place] BID Qty: 15 1RF Continued atorvastatin 10 mg tablet 10 mg PO DAILY valsartan 320 mg tablet 320 mg PO DAILY@1200 estradiol 0.01 % (0.1 mg/gram) cream 1 g vaginal SUWE metoprolol succinate 50 mg tablet extended release 24 hr 50 mg PO BID digoxin [Digox] 125 mcg (0.125 mg) tablet 125 mcg PO DAILY@1800 nifedipine 30 mg tablet extended release 24hr 30 mg PO DAILY@0900 Protocol: Hold for SBP< HOLD for SBP < : 90 Held Eliquis 5 mg tablet 5 mg PO BID Hold Instructions: Resume on 07/25/23. Resume in 7 days if no persistent bleeding Discontinued hydralazine 25 mg Tablet 25 mg PO BID 30 Days Qty: 60 0RF Protocol: Hold for SBP< HOLD for SBP < : 90 omeprazole 20 mg capsule,delayed release(DR/EC) 20 mg PO DAILY@0630 levothyroxine 75 mcg Tablet 75 mcg PO DAILY@0600 Discharge Orders: Discharge Order (Routine); Ordered 07/18/23 Ordered By: Beronica Johnson Diet: Advance to usual diet Activity on Discharge: As tolerated Stand Alone Forms: Patient Portal Discharge page Print Language: Albanian Care Plan Goals: Prevent recurrent GI bleed Health Concerns: GI bleed with acute anemia HTN Afib Bradycardia Plan of Treatment: 1) GI bleed with acute anemia -no active bleeding seen on EGD or colonoscopy -Multiple polyps removed- pathology report pending -blood counts stable on discharge -internal hemorrhoids noted on colonoscopy which can cause small amounts of bright red blood in stool. Can use pramoxine rectal foam twice daily x 1week, then as needed for hemorrhoids (If not covered by insurance, can purchase hydrocortisone rectal suppositories over the counter). Continue high fiber diet. Avoid straining during bowel movements -Continue omeprazole 20mg twice daily for small hiatal hernia seen on EGD. No further intervention needed -Follow up soon with GI. Recommended repeat colonoscopy in 4-6 weeks outpatient -Hold eliquis x7 days and resume if no evidence of recurrent bleeding 2)Hypertension -Continue holding hydralazine. Blood pressures elevated in morning when medications are due but had been normal throughout the day following administration -continue metoprolol, nifedipine, and valsartan as previously prescribed -follow up with PCP 3) Atrial fibrillation- with bradycardia (low heart rate) and intermittent tachycardia (high heart rate)- neither sustained -low heart rate is not uncommon overnight while sleeping. While awake HR consistently stable 60's-70s which is appropriate -Seen by cardiology. Continue metoprolol and nifedipine as above. No further intervention at this time -follow up with cardiology as scheduled 4)Hypothyroidism -TSH elevated at 20, with normal thyroid hormone levels (free T4) -Levothyroxine increased to 100mcg daily. Continue taking on a daily basis about 30-60 minutes before other medication or food intake -Follow up with pcp and recheck TSH/free T4 in 4-6 weeks. Would not recommend checking sooner Assessment: See above See discharge summary Patient Instructions: High Fiber Diet (DC) Discharge Date/Time: 07/18/23 13:13
[2023-07-18 07:24] VITALS: BP 174/89; PULSE 61; RESP 16; TEMP 36.6; O2SAT 96
[2023-07-18] MEDS: Atorvastatin Calcium 10 MG TABLET PO (07:34)
[2023-07-18] MEDS: NIFEdipine ER 30 MG TAB.ER.24 PO (07:34)
[2023-07-18] MEDS: Metoprolol Succinate ER 50 MG TAB.ER.24H PO (07:34)
[2023-07-18] MEDS: 0.9 % Sodium Chloride Flush 3 ML SYRINGE IVFLUSH (07:35)
[2023-07-18 08:27] LABS: Hematocrit 31.5 % (37.0-47.0); Hemoglobin 9.5 g/dl (12.0-16.0)
[2023-07-18 09:40] VITALS: BP 135/60
--- NOTE | 2023-07-18 10:45 | MHC.CM.PN ---
Pt is medically cleared for D/C home self-care, pts daughter to transport her home.
[2023-07-18 11:35] VITALS: BP 155/65; PULSE 68; RESP 16; TEMP 36.8; O2SAT 97
[2023-07-18] MEDS: Valsartan 320 MG TABLET PO (11:42)
[2023-07-18] MEDS: Pramoxine HCl 1 % Rectal Foam 15 GM 1 APPL PR (12:25)
== END 2023-07-18 13:13 | disposition home or self-care (01) | DRG 378 ==
LOC: HO.ED 16:20 → HO.EDOVER 18:09 → HO.IMC 23:22 → HO.S3 07-16 19:06 → HO.IMC 07-17 07:53
PROVIDERS: Internal Medicine Gastroenterology; Nurse Practitioner Family; Physician Assistant Medical; Admitting Provider Nurse Practitioner Acute Care; Emergency Provider Emergency Medicine; PCP Internal Medicine; Visit Provider Physician Assistant
PROC: 0DB98ZX Excision of Duodenum, Via Natural or Artificial Opening Endoscopic, Diagnostic (ICD-10-PCS; principal; 2023-07-16 13:50)
DX: K57.31 Diverticulosis of large intestine without perforation or abscess with bleeding (principal); D62 Acute posthemorrhagic anemia; I48.21 Permanent atrial fibrillation; I10 Essential (primary) hypertension; E03.9 Hypothyroidism, unspecified; Z66 Do not resuscitate; K64.0 First degree hemorrhoids; K31.7 Polyp of stomach and duodenum; H54.8 Legal blindness, as defined in USA; Z79.01 Long term (current) use of anticoagulants; Z79.890 Hormone replacement therapy; Z79.899 Other long term (current) drug therapy
CPT/HCPCS: 36415; 80048; 80053; 80061; 80162; 81001; 82272; 84439; 84443; 85014; 85018; 85025; 85027; 86850; 86900; 86901; 86923; 87086; 88305; 88313; 88342; 93005; 99285; J2704; P9016

== ENCOUNTER → 2023-07-13 15:04 | Outpatient (BNV) | payer MEDICARE, SELFPAY | PROVIDERS: Admitting Provider Nurse Practitioner Acute Care; Emergency Provider Emergency Medicine; PCP Internal Medicine; Visit Provider Internal Medicine Cardiovascular Disease | DX: I48.91 Unspecified atrial fibrillation (principal) | CPT/HCPCS: 93010 ==

== ENCOUNTER 2023-07-13 17:33 | Outpatient (BNV) | payer MEDICARE, SELFPAY | END 2023-07-18 12:58 | PROVIDERS: Admitting Provider Nurse Practitioner Acute Care; Emergency Provider Emergency Medicine; PCP Internal Medicine; Visit Provider Internal Medicine | DX: R94.31 Abnormal electrocardiogram [ECG] [EKG] (principal) | CPT/HCPCS: 93010 ==

== ENCOUNTER 2023-07-13 17:33 | Outpatient (BNV) | payer MEDICARE, SELFPAY | END 2023-07-17 05:39 | PROVIDERS: Admitting Provider Nurse Practitioner Acute Care; Emergency Provider Emergency Medicine; PCP Internal Medicine; Visit Provider Internal Medicine Cardiovascular Disease | DX: I48.91 Unspecified atrial fibrillation (principal) | CPT/HCPCS: 93010 ==

== ENCOUNTER → 2023-07-13 17:33 | Outpatient (BNV) | payer MEDICARE, SELFPAY | PROVIDERS: Admitting Provider Nurse Practitioner Acute Care; Emergency Provider Emergency Medicine; PCP Internal Medicine; Visit Provider Internal Medicine Gastroenterology | DX: K44.9 Diaphragmatic hernia without obstruction or gangrene (principal); K63.5 Polyp of colon; D64.9 Anemia, unspecified; K57.90 Diverticulosis of intestine, part unspecified, without perforation or abscess without bleeding; K64.8 Other hemorrhoids | CPT/HCPCS: 43239; 45381; 45385; 45388; 99223; 99232 ==

== ENCOUNTER → 2023-07-13 17:33 | Outpatient (BNV) | payer MEDICARE, SELFPAY | PROVIDERS: Admitting Provider Nurse Practitioner Acute Care; Emergency Provider Emergency Medicine; PCP Internal Medicine; Visit Provider Nurse Practitioner Acute Care | DX: I48.91 Unspecified atrial fibrillation (principal) | CPT/HCPCS: 99223; 99232; 99239 ==

== ENCOUNTER → 2023-07-13 17:33 | Outpatient (BNV) | payer MEDICARE, SELFPAY | PROVIDERS: Admitting Provider Nurse Practitioner Acute Care; Emergency Provider Emergency Medicine; PCP Internal Medicine; Visit Provider Internal Medicine Cardiovascular Disease | DX: R00.1 Bradycardia, unspecified (principal); I48.91 Unspecified atrial fibrillation | CPT/HCPCS: 99222 ==

== ENCOUNTER 2023-07-21 18:10 | Inpatient (IN) | payer MEDICARE, SELFPAY ==
--- NOTE | ~2023-07-21 | CT_ITS ---
EXAMINATION: CT ABDOMEN AND PELVIS WITH CONTRAST CLINICAL INFORMATION: Elevated white blood cell count. Abdominal pain. Rectal bleeding. COMPARISON: None available. TECHNIQUE: Multidetector volumetric images were obtained from the superior aspect of the liver through the pubic symphysis following administration 85 mL of Omnipaque 350 intravenous contrast. Sagittal and coronal reformatted images were obtained on the technologist's workstation. Oral contrast: Yes This CT examination was performed using dose optimization techniques as appropriate, variously including the following: *Automated exposure control *Adjustment of mA and/or kV according to patient size (this includes techniques or standardized protocols for targeted exams where dose is matched to indication/reason for exam; i.e. extremities or head) *Use of iterative reconstruction technique DLP: 380 mGy-cm FINDINGS: LUNG BASES: The visualized lung bases are unremarkable. LIVER, GALLBLADDER, AND BILIARY TREE: The liver is normal in size, shape, and attenuation. No focal hepatic lesion or biliary ductal dilatation is present. Gallstone. PANCREAS: The pancreas appears atrophic. There is dilatation of the main pancreatic duct in the body and tail of the pancreas measuring up to 5 mm. There is question focal pancreatic duct dilatation versus cyst in the neck of the pancreas measuring up to 1 cm. SPLEEN: Unremarkable. ADRENAL GLANDS: Unremarkable. KIDNEYS AND URETERS: The kidneys are normal in size, shape, and attenuation. No hydronephrosis, hydroureter, or calculi seen. 4.5 cm right renal cyst. No imaging follow-up recommended. No perinephric stranding. BLADDER: Not optimally distended. Difficult to exclude diffuse bladder wall thickening. GASTROINTESTINAL TRACT: There is a small amount of ascites. There are edematous changes of the small bowel mesentery. There are multiple thick-walled edematous loops of small bowel. This involves the distal small bowel but spares the terminal ileum. Small bowel loops are slightly distended and fluid-filled as well. Findings are suggestive of enteritis. The proximal colon is slightly distended and fluid-filled. This demonstrates mild wall thickening as well suggestive of colitis. There is diverticulosis of the more distal colon. No evidence of diverticulitis. High attenuation foci in the cecum and distal sigmoid colon, question representing surgical clips. Large esophageal hernia. Normal appendix. ABDOMINAL WALL: No significant hernia is appreciated. LYMPH NODES: Normal. VASCULAR: There is atherosclerotic disease. No aneurysm. The SMA and SMV are patent. PELVIC VISCERA: Heterogeneous lobulated contour of the uterus prominent for patient age with multiple calcifications probably representing a fibroid uterus. Adnexa appear unremarkable. Small amount of fluid in the pelvis. OSSEOUS STRUCTURES: Degenerative changes of the spine and hip joints. 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 CT/CT abdomen pelvis w IV con IMPRESSION: Enterocolitis. Leading considerations would be inflammatory bowel disease and ischemia. Small amount of ascites. Diverticulosis of the colon. No evidence of diverticulitis. Large esophageal hernia. Gallstone. Fibroid uterus. Abnormal appearing pancreas with dilated main pancreatic duct in the body and tail and question cyst in the neck of the pancreas versus focal main pancreatic duct dilatation. Findings could be better evaluated with MR of the pancreas with MRCP if clinically warranted. Fleischner guidelines were followed.
--- NOTE | ~2023-07-21 | CT_ITS ---
EXAMINATION: CT ABDOMEN AND PELVIS WITHOUT AND WITH CONTRAST CLINICAL INFORMATION: abdominal pain, R/O GI BLEED, R/O MESENTERIC EMBOLISM COMPARISON: 07/21/2023 TECHNIQUE: Multidetector volumetric imaging was performed from the superior aspect of the liver through the pubic symphysis initially without contrast and then following administration of 80 mL Omnipaque 300 intravenous contrast. Arterial phase and 2 minute delayed phase imaging was performed per GI bleed protocol. Sagittal and coronal reformatted images were obtained on the technologist workstation.. This CT examination was performed using dose optimization techniques as appropriate, variously including the following: *Automated exposure control *Adjustment of mA and/or kV according to patient size (this includes techniques or standardized protocols for targeted exams where dose is matched to indication/reason for exam; i.e. extremities or head) *Use of iterative reconstruction technique DLP: 1176 mGy-cm FINDINGS: LUNG BASES: Tiny right pleural effusion with associated mild dependent basilar atelectasis. Extensive coronary artery calcification seen. Paraesophageal hernia containing fundal portion of the stomach. There is diffuse gastric wall thickening and hyperenhancement possibly representing underlying gastritis which could be clinically correlated. LIVER, GALLBLADDER, AND BILIARY TREE: The liver is normal in size, shape, and attenuation. No focal hepatic lesion or biliary ductal dilatation is present. The gallbladder is distended containing a dependent gallstone but no gallbladder wall thickening, or obvious pericholecystic inflammatory changes. PANCREAS: There is abnormal dilatation of the pancreatic duct in the body and tail measuring up to 1 cm in diameter. I do not appreciate any obvious obstructing mass lesion or peripancreatic inflammatory change. Main branch duct type IPMN could have this appearance. SPLEEN: Unremarkable. ADRENAL GLANDS: Unremarkable. KIDNEYS AND URETERS: The kidneys are normal in size, shape, and attenuation. Simple appearing posterior right mid pole 4.3 cm cyst that needs no further evaluation. No hydronephrosis, hydroureter, or perinephric stranding. No calculi. BLADDER: Unremarkable. GASTROINTESTINAL TRACT: There is a very abnormal appearance to the bowel. There is extensive colonic diverticulosis but no focal colonic wall thickening or pericolonic inflammatory change to suggest diverticulitis. Endoscopic placed clips are seen within the sigmoid colon and cecum similar to yesterday's study. There is abnormal wall thickening, mild mucosal enhancement, and perienteric perivascular edema involving the distal ileum in the right lower quadrant. The distribution appears similar to yesterday's study. Etiology of this is uncertain. Infectious or inflammatory etiologies could have this appearance. The superior mesenteric artery extending to this area is proximally patent and the superior mesenteric vein appears patent draining this area although vascular etiologies cannot be entirely excluded. Correlation would be needed. ABDOMINAL WALL: No significant hernia is appreciated. LYMPHOVASCULAR STRUCTURES: No lymphadenopathy. The aorta is unremarkable. PELVIC VISCERA: Calcified uterine fibroids incidentally seen. OSSEOUS STRUCTURES: Multilevel degenerative changes in the spine PERITONEAL SPACE: Small volume of dependent free fluid is again seen, similar to yesterday's study. I do not appreciate any free air. CT/CT gi bleed abd pel wo/w IVcon IMPRESSION: 1. There is a persistent abnormal appearance to the bowel. There is abnormal wall thickening, mucosal enhancement, and perienteric edema involving a relatively long segment of the distal ileum in the right lower quadrant. The distribution appears similar to yesterday's study. Etiology of this is uncertain. Infectious or inflammatory etiologies could have this appearance. The superior mesenteric artery extending to this area is patent and the superior mesenteric vein appears patent draining this area although vascular etiologies cannot be entirely excluded. 2. There is extensive diverticulosis but no evidence for diverticulitis. Colonic endoclips noted. 3. There is abnormal dilatation of the pancreatic duct in the body and tail measuring up to 1 cm in diameter. I do not appreciate any obvious obstructing mass lesion or peripancreatic inflammatory change. Main branch duct type IPMN could have this appearance.
[2023-07-21 18:18] VITALS: BP 146/93; BP 148/76; PULSE 115; PULSE 79; RESP 18; TEMP 36.6; O2SAT 98; BMI 22.8
--- NOTE | 2023-07-21 18:33 | ED_ITS ---
HPI - General Adult General Chief complaint: General Medical Stated complaint: rectal bleeding, seen for internal bleed last week History of Present Illness HPI narrative: 87-year-old female with a history of hyponatremia, hypothyroidism, high cholesterol, hypertension, diverticulosis, internal hemorrhoids, recent polypectomy who was admitted from 07/13/2023 until 07/18/2023 for microcytic anemia with an H&H of 6.8 and 24 0.6. Patient had been started on Eliquis on 07/14/2022 for atrial fibrillation. Patient received 2 units of packed red blood cells, endoscopy revealed hiatal hernia and colonoscopy reveal two polyps which were removed, internal hemorrhoids and severe diverticulosis with no evidence of active bleeding. Patient's Eliquis was not restarted at the time of discharge. Patient now presents with abdominal pain nausea, vomiting, diarrhea and bright red blood per rectum. The patient states that last night she developed abdominal pain, nausea and vomiting. She had too many episodes of vomiting and diarrhea to count them. She is blind and states that she can not describe the color of the diarrhea or vomit. This morning, the patient's daughter was concerned that the patient may be dehydrated and called an ambulance to have her brought to the emergency department for evaluation. Apparently, when the patient stood up she had a large amount of red blood per rectum. Patient is complaining of lower abdominal pain which she has difficulty describing but states that pain is moderate to severe in intensity. Patient denied fever but did have chills. She had rhinorrhea and an occasional cough. She denied chest pain, shortness of breath, frequency, urgency or dysuria Related Data Home Medications ?Medication ?Instructions ?Recorded ?Confirmed atorvastatin 10 mg tablet 10 mg PO DAILY 02/08/21 07/21/23 estradiol 0.01% (0.1 mg/gram) 1 g vaginal SUWE 02/08/21 07/21/23 vaginal cream valsartan 320 mg tablet 320 mg PO DAILY@1200 02/08/21 07/21/23 nifedipine 30 mg tablet,extended 30 mg PO DAILY@0900 04/13/22 07/21/23 release 24 hr apixaban 5 mg tablet (Eliquis) 5 mg PO BID 10/13/22 07/21/23 metoprolol succinate 50 mg 50 mg PO BID 10/13/22 07/21/23 tablet,extended release 24 hr digoxin 125 mcg (0.125 mg) tablet 125 mcg PO DAILY@1800 07/13/23 07/21/23 (Digox) Previous Rx's ?Medication ?Instructions ?Recorded levothyroxine 100 mcg tablet 100 mcg PO DAILY@0600 #90 tabs 07/18/23 (Synthroid) omeprazole 20 mg capsule,delayed 20 mg PO BID@0630,1630 #180 caps 07/18/23 release pramoxine 1 % topical foam 1 appl NE BID #15 grams 07/18/23 Allergies Allergy/AdvReac Type Severity Reaction Status Date / Time No Known Allergies Allergy Verified 07/21/23 18:20 [No Known Allergies*] Review of Systems 2 Review of Systems: Yes all other systems are reviewed and are negative [facility] Past Medical History [facility] Narrative: Social history: Patient lives at home alone but her daughter lives next door and checks in on her frequently. The patient denies tobacco , alcohol and drug use. Medical History Hyponatremia Hypothyroid Alcohol intoxication Fall Closed trimalleolar fracture of ankle High cholesterol Vaso-vagal reaction HTN (hypertension) Family History Family History Father Angina at rest Social History Social History Household Members: None Housing: House Do you presently have visiting nurse or other home services: No Alcohol intake: current Alcohol intake frequency: a few times a week Patient Tobacco Use Status: Never used Tobacco Smoked in Last 30 Days: No Use of substances other than those prescribed or required for medical reasons: No Advance Directives: Yes Advance Directives on File: Yes Advance Directives Date on File: 02/14/21 service: No Current occupational status: retired Current occupation: Rt handed Physical Exam ED Vital Signs: Vital Signs - 24 hr 07/21/23 18:18 07/21/23 21:12 Temperature 97.8 F 99.5 F Pulse Rate 115 H 97 Respiratory Rate 18 20 Blood Pressure 146/93 H 163/77 H Pulse Oximetry 98 94 Oxygen Delivery Method Room Air Room Air BMI result Body Mass Index 22.8 Vital signs revealed an elevated heart rate of 115 and an elevated pulse of 140 6/90 Exam: General: Awake, alert in no distress Head: Normocephalic, atraumatic EENT: The patient's left eye drifts laterally and only moves to midline with extraocular muscle testing, patient states that she can see very little out of the left eye and more of her right eye, Lids normal, sclera normal, conjunctiva normal, nose normal , ears normal, throat without erythema or exudates Neck: Supple, no adenopathy Lung: breath sounds symmetric, no wheezing, rales or rhonchi Chest: symmetric movement, nontender Heart: regular rate and rhythm, normal S1, S2 no murmurs or rubs Abdomen: Moderate RLQ, LLQ pain and mild to moderate suprapubic tenderness, normoactive bowel sounds, no abdominal distention, no rebound Rectal: Back: no vertebral tenderness, no CVAT Extremities: no deformities, moves all extremities symmetrically Neuro: Awake, alert, oriented, normal speech, moves all extremities symmetrically Psych: Pleasant, cooperative Medications Administered Generic Name Dose Route Start Last Admin Trade Name Freq PRN Reason Stop Dose Admin Lactated Ringer's 1,000 mls @ 100 mls/hr 07/21/23 21:45 07/21/23 23:21 Lr IVCONT 100 mls/hr .Q10H CHACHO Administration Metoprolol Succinate 50 mg 07/21/23 21:55 07/21/23 23:27 Metoprolol Succinate Er 50 Mg Tab.Er.24h PO 50 mg BID CHACHO Administration Protocol Pantoprazole Sodium 40 mg 07/21/23 22:00 07/21/23 23:21 Pantoprazole Sodium 40 Mg/10 Ml Vial IVPUSH 40 mg BID CHACHO Administration Sodium Chloride 3 ml 07/22/23 00:00 07/21/23 23:31 0.9 % Sodium Chloride Flush 3 Ml Syringe IVFLUSH 3 ml QSHIFT CHACHO Administration Discontinued Medications Generic Name Dose Route Start Last Admin Trade Name Freq PRN Reason Stop Dose Admin Sodium Chloride 1,000 mls @ 999 mls/hr 07/21/23 18:33 07/21/23 21:05 Ns IV 07/21/23 19:33 Infused .Q1H1M STA Infusion Piperacillin Sod/Tazobactam 100 mls @ 200 mls/hr 07/21/23 20:19 07/21/23 22:00 Sod 4.5 gm/ Sodium Chloride IV 07/21/23 20:48 Infused ONCE ONE Infusion Iohexol 85 ml 07/21/23 20:58 07/21/23 20:58 Iohexol 350 Mg/Ml 100 Ml Infus..Btl IV 07/21/23 20:59 85 ml ONCE ONE Administration Morphine Sulfate 2 mg 07/21/23 18:33 07/21/23 18:55 Morphine Sulfate 4 Mg/Ml Cartridge IVPUSH 07/21/23 18:34 2 mg ONCE STA Administration Protocol Ondansetron HCl 4 mg 07/21/23 18:33 07/21/23 18:55 Ondansetron Hcl 4 Mg/2 Ml Vial IVPUSH 07/21/23 18:34 4 mg ONCE ONE Administration Medical Decision Making Medical Decision Making MDM Narrative: 87-year-old female with a history of hyponatremia, hypothyroidism, high cholesterol, hypertension, diverticulosis, internal hemorrhoids, recent polypectomy who was admitted from 07/13/2023 until 07/18/2023 for microcytic anemia with an H&H of 6.8 and 24 0.6, who had colonoscopy and endoscopy which did not reveal a clear source of the bleeding but she does have internal hemorrhoids, diverticulosis and had 2 polypectomy. She now presents with nausea, vomiting, diarrhea and abdominal pain which started last night. This morning she was noted to have bright red blood per rectum which was new for her. Vital signs revealed an elevated heart rate and elevated blood pressure. Physical examination did reveal moderate right lower left lower quadrant tenderness and mild to moderate suprapubic tenderness. Rectal exam revealed dark red stool which was Hemoccult positive Differential diagnosis: ?Includes but is not limited to hemorrhoid bleed, diverticular bleed, bleeding secondary to polypectomy, viral syndrome, electrolyte abnormalities, anemia, dehydration Following evaluation was ordered: CBC, CMP, lactic acid, PT/INR, PTT, lipase, GI panel, C diff, occult stool for blood, COVID-19, influenza, RSV, type and screen Patient was initially treated with the following: IV insert, normal saline x1 L IV, morphine 2 mg IV, Zofran 4 mg IV Course: 20:21 My interpretation patient's laboratory evaluation as follows: WBC elevated 30,100 with 86 neutrophils, microcytic anemia with an H&H of 10 and 33.9 with MCV of 74-improved compared to 07/18/2023 when it was 9.5 and 31.5. BUN elevated 20 with a normal creatinine. Glucose elevated 156. Bilirubin elevated 1.6. LFTs were normal. Lipase normal. COVID-19, influenza and RSV were negative. Lactic acid was normal at 1 point 6. Patient's elevated WBC is concerning for possible infection such as diverticulitis therefore I ordered blood cultures x2 and Zosyn 4.5 g IV. I will obtain a CT scan of the abdomen pelvis with IV contrast to further evaluate her abdominal pain and lower GI bleed. Source of bleeding could be diverticular/diverticulosis however internal hemorrhoids and bleeding from the recent polypectomy could be the source as well. Pathology from colonoscopy and endoscopy on 07/18/2023 revealed no high- grade dysplasia or H pylori. I did discuss patient's presentation over tiger text with the covering daytime babysitter, Dr. Gutierrez. 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 Agree with CT to r/o other causes. If negative, should be on bowel rest, IVF and Abx for a few days I also discuss the patient's presentation over tiger text with the covering hospitalist, Dr. Oconnell and the patient will be admitted to the hospital service for further management. Admission/Observation Consideration of admission/observation: Escalation of care including admission/observation considered Consult Healthcare Provider Management of the patient was discussed with: Hospitalist (Dr. Oconnell) and Ingredient Specialist (Sales Operations Analyst, Dr. Gutierrez) Lab Data MDM Lab Attestation statement: I reviewed the patient's lab results. 07/21/23 18:52 07/21/23 18:52 Labs: Lab Results 07/21/23 07/21/23 07/21/23 Range/Units 18:52 19:25 20:39 WBC 30.1 H* (4.8-10.8) X10*3/uL RBC 4.58 (4.20-5.50) X10*6/uL Hgb 10.5 L (12.0-16.0) g/dl Hct 33.9 L (37.0-47.0) % MCV 74.0 L (80.0-98.0) fL MCH 22.9 L (27.0-33.0) pg MCHC 31.0 (31.0-35.0) g/dl RDW 25.3 H (11.0-16.0) % Plt Count 264 (160-400) X10*3/uL MPV 9.7 (9.4-12.3) fL Immature Gran % (Auto) 4.9 H (0.0-0.4) % Neut % (Auto) 86.3 H (45-73) % Lymph % (Auto) 1.4 L (20-40) % [place] % (Auto) 7.0 (2-11) % Eos % (Auto) 0.2 (0-4) % Baso % (Auto) 0.2 (0-2) % Lymph # (Auto) 0.4 L (1.2-4.9) X10*3/uL [place] # (Auto) 2.1 H (0.1-1.2) X10*3/uL Eos # (Auto) 0.1 (0.0-0.4) X10*3/uL Baso # (Auto) 0.1 (0.0-0.2) X10*3/uL Abs Immat Gran (auto) 1.47 H (0.00-0.03) X10*3/uL Absolute Neuts (auto) 25.9 H (2.0-8.3) x10*3/uL Absolute Nucleated RBC 0.000 (0.0-0.012) X10*3/uL Nucleated RBC % (auto) 0.0 (0.0-0.2) /100WBC Smear Tech's Comments VERIFIED PT 12.2 (11.1-13.3) SEC INR 1.0 (0.9-1.1) APTT 23.2 L (26.0-36.8) SEC Sodium 135 (135-145) mmol/L Potassium 3.8 (3.3-5.1) mmol/L Chloride 98 (96-108) mmol/L Carbon Dioxide 27 (22-29) mmol/L Anion Gap 14 (12-20) BUN 20 H (9-16) mg/dL Creatinine 0.68 (0.5-1.4) mg/dL Estim Creat Clear Calc 57.6 Estimated GFR > 60 Random Glucose 156 H (60-115) mg/dL Lactic Acid 1.8 (0.5-2.0) mmol/L Calcium 9.4 D (8.4-10.2) mg/dL Total Bilirubin 1.6 H (0.0-1.0) mg/dL AST 26 (5-31) U/L ALT 14 (0-31) U/L Alkaline Phosphatase 88 (39-117) U/L C-Reactive Protein 3.23 H (< or = 0.50) mg/dL Total Protein 6.5 (6.5-8.0) g/dL Albumin 3.7 (3.5-5.0) g/dL Lipase 23 (8-78) U/L Stool Occult Blood POSITIVE (NEGATIVE) Influenza Type A (PCR) NEGATIVE (Negative) Influenza Type B (PCR) NEGATIVE (Negative) RSV RNA Qual (PCR) NEGATIVE (Negative) SARS-CoV-2 RNA (RT-PCR) NEGATIVE (Negative) Blood Type B Negative Antibody Screen NEGATIVE Radiology Impression Discussion of test interpretation with radiology: I have reviewed the radiologist's reading. Radiologist Impression: CT abdomen pelvis w IV con IMPRESSION: Enterocolitis. Leading considerations would be inflammatory bowel disease and ischemia. Small amount of ascites. Diverticulosis of the colon. No evidence of diverticulitis. Large esophageal hernia. Gallstone. Fibroid uterus. Abnormal appearing pancreas with dilated main pancreatic duct in the body and tail and question cyst in the neck of the pancreas versus focal main pancreatic duct dilatation. Findings could be better evaluated with MR of the pancreas with MRCP if clinically warranted. Fleischner guidelines were followed. Dictated By: Florence Kelsey MD Independent Historian Clinical information obtained from an independent historian. History obtained from or confirmed by: Other ([facility]) External Record Review External record reviewed: Inpatient record and Other (Pathology report) Chronic Conditions Patient?s care impacted by: Hypertension Critical Care Time Critical Care Time Critical Care Time: Yes Total Critical Care Time: 45 Attestation: Critical Care: The patient was critically ill with a high probability of imminent or life threatening deterioration. I spent greater than 30 minutes of discontinuous time evaluating the patient,delivering critical care at the bedside, discussing and evaluating pertinent data with consultants. Critical care time does not include time spent performing separately billable procedures or teaching. Total time spent performing critical care was 45 minutes. Discharge Plan Discharge Clinical Impression: Acute lower gastrointestinal bleeding, Vomiting, Diarrhea, Abdominal pain
[2023-07-21] MEDS: 0.9 % Sodium Chloride 1,000 ML 999 ML IV (18:55)
[2023-07-21] MEDS: ondansetron HCL 4 MG/2 ML VIAL IVPUSH (18:55)
[2023-07-21] MEDS: Morphine Sulfate 4 MG/ML CARTRIDGE 2 MG IVPUSH (18:55)
[2023-07-21 19:02] LABS: Eosinophils Percent Auto 0.2 % (0-4); Hematocrit 33.9 % (37.0-47.0); Imm Gran Abs Auto 1.47 X10*3/uL (0.00-0.03); Imm Gran Pct Auto 4.9 % (0.0-0.4); MANUAL DIFF FLAG SCAN; Monocytes Absolute Auto 2.1 X10*3/uL (0.1-1.2); Red Cell Distribution Width 25.3 % (11.0-16.0); SCAN SMEAR FLAG 1
[2023-07-21 19:05] LABS: Prothrombin Time 12.2 SEC (11.1-13.3)
[2023-07-21 19:09] LABS: Basophils Absolute Auto 0.1 X10*3/uL (0.0-0.2); Basophils Percent Auto 0.2 % (0-2); Eosinophils Absolute Auto 0.1 X10*3/uL (0.0-0.4); Hemoglobin 10.5 g/dl (12.0-16.0); Lactic Acid 1.8 mmol/L (0.5-2.0); Lymphocytes Absolute Auto 0.4 X10*3/uL (1.2-4.9); Lymphocytes Percent Auto 1.4 % (20-40); Mean Corpuscular Hemoglobin 22.9 pg (27.0-33.0); Mean Platelet Volume 9.7 fL (9.4-12.3); Neutrophils Absolute Auto 25.9 x10*3/uL (2.0-8.3); Neutrophils Percent Auto 86.3 % (45-73); Partial Thromboplastin Time 23.2 SEC (26.0-36.8); Platelet Count 264 X10*3/uL (160-400); Red Blood Count 4.58 X10*6/uL (4.20-5.50)
[2023-07-21 19:15] LABS: White Blood Count 30.1 X10*3/uL (4.8-10.8)
[2023-07-21 19:16] LABS: Alanine Aminotransferase 14 U/L (0-31); Albumin Level 3.7 g/dL (3.5-5.0); Alkaline Phosphatase 88 U/L (39-117); Anion Gap 14 (12-20); Aspartate Amino Transferase 26 U/L (5-31); Bilirubin Total 1.6 mg/dL (0.0-1.0); Blood Urea Nitrogen 20 mg/dL (9-16); Calcium 9.4 mg/dL (8.4-10.2); Carbon Dioxide 27 mmol/L (22-29); Chloride 98 mmol/L (96-108); Creatinine Clr Calc Pharmacy 57.6; Estimated Glomerular Filt Rate > 60; Glucose Random 156 mg/dL (60-115); Lipase 23 U/L (8-78); Potassium 3.8 mmol/L (3.3-5.1); Sodium 135 mmol/L (135-145); Total Protein 6.5 g/dL (6.5-8.0)
[2023-07-21 19:28] LABS: SLIDE REVIEW VERIFIED
[2023-07-21 19:41] LABS: Influenza A PCR NEGATIVE (Negative); Influenza B PCR NEGATIVE (Negative); Resp Syncy Virus RNA Qual PCR NEGATIVE (Negative); SARS COV2 PCR INHOUSE NEGATIVE (Negative)
--- NOTE | 2023-07-21 20:45 | MHC.EDTECH ---
@2030 Patient was changed over, and cleaned up, New brief (provided by family) due to condition at this time. Boosted, and repositioned. First set of culture obtain. All set at this time.
[2023-07-21 20:52] LABS: OBS Int Ctl Valid YES; OBS1 POSITIVE (NEGATIVE)
[2023-07-21] MEDS: iohexoL 350 MG/ML 100 ML INFUS..BTL 85 ML IV (20:58)
--- NOTE | 2023-07-21 21:05 | PHA.MEDREC ---
Pharmacy Consult ? Medication Reconciliation Pharmacy has completed the medication reconciliation, pt was recently discharged on 07/18/23, utilized discharge packet, per discharge instructions, pt was to hold eliquis until 07/24 until bleeding resolved.
[2023-07-21 21:12] VITALS: BP 163/77; PULSE 97; RESP 20; TEMP 37.5; O2SAT 94
[2023-07-21] MEDS: Piperacillin Sodium/Tazobactam 4.5 GM in 0.9 % Sodium Chloride 100 ML IV (21:21)
--- NOTE | 2023-07-21 21:56 | P.HPHOSP_ITS ---
History of Present Illness Date of Service: 07/21/23 Attending physician on admission: Renetta Funez Chief Complaint: Abdominal pain and diarrhea Licha Holguin is 87 years old woman with past medical history significant for atrial fibrillation (not currently taking Eliquis due to recent GI bleeding), recent GI bleeding requiring blood transfusions, hypothyroidism, hyperlipidemia and essential hypertension was brought to the emergency department via ambulance due to lower abdominal pain associated with nausea dark brown vomiting and bright red rectal bleeding. She denied any headache, dizziness, chest pain or shortness on breath. Recently, she underwent an EGD and colonoscopy and was found to have hiatal, hernia diverticulosis, internal hemorrhoids and polyps (removed). Patient has not been taking Eliquis since that hospitalization. She denied alcohol abuse, illicit drug use or In the ED, she was found to have stable vital signs. Blood workup was remarkable for marked leukocytosis 30.1. Hemoglobin is at baseline. Platelets are normal. There are no electrolyte imbalances. BUN is 20. Creatinine is 0.69. LFTs are normal. Total bilirubin is slightly elevated (improved from prior 4.9--> 1.6. Albumin is normal. Viral testing for COVID-19, influenza and RSV is negative. Stool for occult blood is positive. Abdomen and pelvis CT scan w/ IV contrast showed showed findings consistent with enterocolitis (involving the distal small bowel sparing the terminal ileum), diverticulosis without diverticulitis, large esophageal hernia, gallstones, fibroid uterus and questions pancreatic sick versus focal main pancreatic duct dilatation. ED tx: NS 1 L bolus, morphine 2 mg IV, Zofran 4 mg IV, Zosyn 4.5 g IV. Review of Systems 2 Review of Systems: All 12 systems were reviewed and normal except as noted in HPI. [facility] Medical History Hyponatremia Hypothyroid Alcohol intoxication Fall Closed trimalleolar fracture of ankle High cholesterol Vaso-vagal reaction HTN (hypertension) Family History Father Angina at rest Social History Household Members: None Housing: House Do you presently have visiting nurse or other home services: No Alcohol intake: current Alcohol intake frequency: a few times a week Patient Tobacco Use Status: Never used Tobacco Smoked in Last 30 Days: No Use of substances other than those prescribed or required for medical reasons: No Advance Directives: Yes Advance Directives on File: Yes Advance Directives Date on File: 02/14/21 service: No Current occupational status: retired Current occupation: Rt handed Meds Allergies Allergy/AdvReac Type Severity Reaction Status Date / Time No Known Allergies Allergy Verified 07/21/23 18:20 [No Known Allergies*] Active Medications: Current Medications Acetaminophen (Acetaminophen 325 Mg Tablet) 975 mg PO Q6H PRN PRN Reason: Fever >101 Atorvastatin Calcium (Atorvastatin Calcium 10 Mg Tablet) 10 mg PO DAILY CHACHO Digoxin (Digoxin 0.125 Mg Tablet) 0.125 mg PO DAILY@1800 CHACHO Lactated Ringer's (Lr) 1,000 mls @ 100 mls/hr IVCONT .Q10H CHACHO Levothyroxine Sodium (Levothyroxine Sodium 100 Mcg Tablet) 100 mcg PO DAILY@0600 [facility] Metoprolol Succinate (Metoprolol Succinate Er 50 Mg Tab.Er.24h) 50 mg PO BID CHACHO; Protocol Nifedipine (Nifedipine Er 30 Mg Tab.Er.24) 30 mg PO DAILY@0900 CHACHO; Protocol Ondansetron HCl (Ondansetron Hcl 4 Mg/2 Ml Vial) 4 mg IVPUSH Q8H PRN PRN Reason: Nausea and Vomiting Sodium Chloride (0.9 % Sodium Chloride Flush 3 Ml Syringe) 3 ml IVFLUSH QSHIFT CHACHO Valsartan (Valsartan 320 Mg Tablet) 320 mg PO DAILY@1200 CHACHO; Protocol Home Medications ?Medication ?Instructions ?Recorded ?Confirmed ?Last Taken ?Type atorvastatin 10 mg tablet 10 mg PO DAILY 02/08/21 07/21/23 07/13/23 History estradiol 0.01% (0.1 mg/gram) 1 g vaginal SUWE 02/08/21 07/21/23 07/12/23 History vaginal cream valsartan 320 mg tablet 320 mg PO DAILY@1200 02/08/21 07/21/23 07/13/23 History nifedipine 30 mg tablet,extended 30 mg PO DAILY@0904/13/22 07/21/23 07/13/23 History release 24 hr apixaban 5 mg tablet (Eliquis) 5 mg PO BID 10/13/22 07/21/23 07/13/23 History metoprolol succinate 50 mg 50 mg PO BID 10/13/22 07/21/23 07/13/23 History tablet,extended release 24 hr digoxin 125 mcg (0.125 mg) tablet 125 mcg PO DAILY@1800 07/13/23 07/21/23 07/12/23 History (Digox) Physical Exam 2 Vital Signs and Narrative: Vital Signs: Last Vital Signs Temp 99.5 F 07/21/23 21:12 Pulse 97 07/21/23 21:12 Resp 20 07/21/23 21:12 BP 163/77 H 07/21/23 21:12 Pulse Ox 94 07/21/23 21:12 O2 Del Method Room Air 07/21/23 21:12 BMI result Body Mass Index 22.8 Constitutional - Awake and Alert, No apparent distress. HEENT - Strabismus. Normal sclerae. Dry oral mucosa. Heart - Irregular rhythm. Normal rate. Lungs - Normal lung expansion, Normal respiratory effort, No respiratory distress, CTA bilaterally Abdomen - NT. Pelvic tenderness to palpation; encouraged BS; No rebound or guarding. Extremities - No calf tenderness bilaterally, no swelling Musculoskeletal - Normal inspection, normal ROM Skin - Warm/Dry Neurological - Alert & oriented x3. No focal weakness grossly noted. Normal speech. Psychological - Appropriate affect Results Labs 07/21/23 18:52 07/21/23 18:52 Labs: Laboratory Results - last 24 hr 07/21/23 07/21/23 07/21/23 18:52 19:25 20:39 MCV 74.0 L MCH 22.9 L MCHC 31.0 RDW 25.3 H Plt Count 264 MPV 9.7 Immature Gran % (Auto) 4.9 H Neut % (Auto) 86.3 H Lymph % (Auto) 1.4 L [place] % (Auto) 7.0 Eos % (Auto) 0.2 Baso % (Auto) 0.2 Lymph # (Auto) 0.4 L [place] # (Auto) 2.1 H Eos # (Auto) 0.1 Baso # (Auto) 0.1 Abs Immat Gran (auto) 1.47 H Absolute Neuts (auto) 25.9 H Absolute Nucleated RBC 0.000 Nucleated RBC % (auto) 0.0 Smear Tech's Comments VERIFIED PT 12.2 INR 1.0 APTT 23.2 L Anion Gap 14 Estim Creat Clear Calc 57.6 Estimated GFR > 60 Random Glucose 156 H Lactic Acid 1.8 Calcium 9.4 D Total Bilirubin 1.6 H AST 26 ALT 14 Alkaline Phosphatase 88 Total Protein 6.5 Albumin 3.7 Lipase 23 Stool Occult Blood POSITIVE Influenza Type A (PCR) NEGATIVE Influenza Type B (PCR) NEGATIVE RSV RNA Qual (PCR) NEGATIVE SARS-CoV-2 RNA (RT-PCR) NEGATIVE Blood Type B Negative Antibody Screen NEGATIVE Assessment and Plan (1) Acute GI bleeding: Status: Acute (2) HTN (hypertension): Qualifiers: Hypertension type: primary hypertension Qualified Code(s): I10 - Essential (primary) hypertension Status: Acute (3) Enterocolitis: Status: Acute Plan Licha Holguin is 87 years old woman admitted with: * Nausea, vomiting, diarrhea lower abdominal pain secondary to enterocolitis; etiology unclear. Differential diagnosis: Viral/bacterial infection, C diff infection, inflammatory bowel disease, ischemia. Admit to hospitalist service. Keep NPO except for meds. Continue IV hydration. Continue IV antibiotic therapy with ceftriaxone and Flagyl. Protonix 40 mg IV twice daily. Check C.diff and viral panel. Check CRP. * Rectal bleeding, bright red. Likely related to internal hemorrhoids. Continue to monitor H&H. PRBC transfusions if Hgb <7.0. GI consult. * Slightly elevated bilirubin, improving. Normal transaminases, lipase and alk- phos. Continue to monitor. 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 Continue levothyroxine. Check TSH. * Essential hypertension. Continue metoprolol and nifedipine. * Atrial fibrillation, rate controlled. Telemetry. Continue metoprolol. Eliquis on hold due to active GI bleeding. * Hyperlipidemia. Continue statin. DVT prophylaxis: SCDs only GI prophylaxis: PPI Code status: Full Patient will need hospitalization for at least 2 midnights for acute enterocolitis and lower GI bleeding treatment with empiric IV antibiotic therapy, IV fluids and antiemetic therapy as well as evaluation by subspecialty. Patient also will need close monitoring of blood workup and vital signs. Quality Stroke Does the patient have a stroke diagnosis?: No VTE Prior VTE?: No VTE Risk Level:: Medical - moderate - high VTE Device Contraindication: N/A - Device Ordered VTE Drug Contraindication: Treatment Not Indicated
[2023-07-21 23:11] LABS: C Reactive Protein 3.23 mg/dL (< or = 0.50)
[2023-07-21] MEDS: Lactated Ringers 1,000 ML 100 ML IVCONT (23:21)
[2023-07-21] MEDS: Pantoprazole Sodium 40 MG/10 ML VIAL IVPUSH (23:21)
[2023-07-21 23:27] VITALS: BP 143/63; PULSE 105
[2023-07-21] MEDS: Metoprolol Succinate ER 50 MG TAB.ER.24H PO (23:27)
--- NOTE | 2023-07-21 23:30 | PC.NURSE ---
This senior technical writer assumed care of this Pt at 1900. Pt A&Ox3, reports effectiveness of pain medication given by previous RN. Pt NPO, okay to have sips of water with medication per Dr. Anish Funez, Pt tolerated well.
[2023-07-21] MEDS: 0.9 % Sodium Chloride Flush 3 ML SYRINGE IVFLUSH (23:31)
--- NOTE | 2023-07-21 23:44 | MHC.EDTECH ---
@[id number] Pt's fa,jonna requested another blanket for patient due to being cold. This tech gave the patient a warm blanket. and reminded her to call if she needs/wants another.
[2023-07-22] VITALS (8 sets, daily range): BP systolic 141–161; BP diastolic 65–78; PULSE 87–95; RESP 16–18; TEMP 36–36.8; O2SAT 92–95
--- NOTE | 2023-07-22 04:56 | PC.NURSE ---
Pt appears to be sleeping, no apparent distress, equal, non labored respirations. Plan of care on going.
[2023-07-22] MEDS: Levothyroxine Sodium 100 MCG TABLET PO (05:59)
[2023-07-22] MEDS: metroNIDAZOLE/NS 500 MG/100 ML PIGGYBACK 100 MG IV ×3 (06:02→21:22)
--- NOTE | 2023-07-22 06:20 | PC.NURSE ---
Pt incontinent of urine, incontinent care provided. No BM at this time.
[2023-07-22 06:24] LABS: Basophils Absolute Auto 0.1 X10*3/uL (0.0-0.2); Basophils Percent Auto 0.3 % (0-2); Eosinophils Percent Auto 0.1 % (0-4); Hematocrit 32.4 % (37.0-47.0); Hemoglobin 9.6 g/dl (12.0-16.0); Imm Gran Abs Auto 1.37 X10*3/uL (0.00-0.03); Imm Gran Pct Auto 4.9 % (0.0-0.4); Lymphocytes Absolute Auto 0.8 X10*3/uL (1.2-4.9); Lymphocytes Percent Auto 2.8 % (20-40); MANUAL DIFF FLAG SCAN; Mean Corpuscular HGB Conc 29.6 g/dl (31.0-35.0); Mean Corpuscular Hemoglobin 22.6 pg (27.0-33.0); Mean Corpuscular Volume 76.2 fL (80.0-98.0); Mean Platelet Volume 10.1 fL (9.4-12.3); Monocytes Absolute Auto 2.3 X10*3/uL (0.1-1.2); Monocytes Percent Auto 8.1 % (2-11); Neutrophils Absolute Auto 23.5 x10*3/uL (2.0-8.3); Neutrophils Percent Auto 83.8 % (45-73); Platelet Count 238 X10*3/uL (160-400); Red Blood Count 4.25 X10*6/uL (4.20-5.50); Red Cell Distribution Width 25.9 % (11.0-16.0); SCAN SMEAR FLAG 1
[2023-07-22 06:36] LABS: Digoxin 0.5 ng/mL (0.8-2.0)
[2023-07-22 06:42] LABS: SLIDE REVIEW VERIFIED
[2023-07-22 06:44] LABS: Alanine Aminotransferase 11 U/L (0-31); Albumin Level 3.2 g/dL (3.5-5.0); Alkaline Phosphatase 103 U/L (39-117); Anion Gap 12 (12-20); Aspartate Amino Transferase 12 U/L (5-31); Bilirubin Total 1.3 mg/dL (0.0-1.0); Blood Urea Nitrogen 20 mg/dL (9-16); Calcium 8.8 mg/dL (8.4-10.2); Carbon Dioxide 27 mmol/L (22-29); Chloride 103 mmol/L (96-108); Creatinine Clr Calc Pharmacy 50.9; Estimated Glomerular Filt Rate > 60; Glucose Random 129 mg/dL (60-115); Magnesium 1.6 mg/dL (1.6-2.6); Potassium 3.6 mmol/L (3.3-5.1); Sodium 138 mmol/L (135-145); Total Protein 5.6 g/dL (6.5-8.0)
[2023-07-22] MEDS: Lactated Ringers 1,000 ML 100 ML IVCONT ×2 (07:40→17:30)
--- NOTE | 2023-07-22 08:42 | MHC.CM.PN ---
CM met with Patient at bedside, in the ED, and addressed IMM with her, providing Patient with the original and a copy will be placed on the chart. Patient lives alone in a house and she uses a walker to assist with mobility. Patient had no services [employer] and home/self care is the goal. CM has initiated and will follow for dc planning. Patient's Daughter/Florence is the HCP and the PCP is Dr. Cesar Estrada.
[2023-07-22] MEDS: Atorvastatin Calcium 10 MG TABLET PO (08:55)
[2023-07-22] MEDS: NIFEdipine ER 30 MG TAB.ER.24 PO (08:55)
[2023-07-22] MEDS: Metoprolol Succinate ER 50 MG TAB.ER.24H PO ×2 (08:55→20:18)
[2023-07-22] MEDS: cefTRIAXone sodium 1 GM in 0.9 % Sodium Chloride 50 ML IV (08:56)
[2023-07-22] MEDS: Pantoprazole Sodium 40 MG/10 ML VIAL IVPUSH ×2 (09:02→20:18)
--- NOTE | 2023-07-22 09:41 | P.CNGI_ITS ---
History of Present Illness Data of Consult Service Date: 07/22/23 Primary Care Provider: MD CANDY Watt This is an 87-year-old female with past medical history of atrial fibrillation on Eliquis, hypertension, chronic anemia, who presented to the hospital for acute onset of abdominal pain, vomiting and diarrhea. Gastroenterology has been consulted for entero colitis as well as question of GI bleeding. Patient was recently admitted to the hospital last week for symptomatic anemia and underwent bidirectional endoscopy 07/16/2023: X3 polyps removed out of which 2 were large and hot snared with Endoclips. Path: Normal duodenal mucosa. No H pylori. Tubular adenomas and tubulovillous adenoma. Patient reports feeling fine for 2 days after discharge, and then the night before admission, developed severe lower abdominal pain associated with multiple episodes of vomiting as well as watery bowel movements. Daughter also reports seeing blood in the watery movements. Due to recent admission for GI bleeding, they therefore brought her to the hospital. However, patient and daughter report that diarrhea and vomiting resolved by the time they got to the hospital. Overnight, the abdominal pain also improved. Today, at bedside assessment, patient appears comfortable and in no distress. Has not had any further bowel movements or vomiting as noted above. Initial labs were significant for hemoconcentration with hemoglobin of 10.5, above her baseline. Leukocytosis. Elevated CRP. Respiratory panel was negative. CT abdomen and pelvis with IV contrast showed entero colitis. Review of Systems 2 Review of Systems: Yes all other systems are reviewed and are negative PMFSH Past Medical History Medical History Hyponatremia Hypothyroid Alcohol intoxication Fall Closed trimalleolar fracture of ankle High cholesterol Vaso-vagal reaction HTN (hypertension) Family History Family History Father Angina at rest Social History Social History Household Members: None Housing: House Do you presently have visiting nurse or other home services: No Alcohol intake: current Alcohol intake frequency: a few times a week Patient Tobacco Use Status: Never used Tobacco Smoked in Last 30 Days: No Use of substances other than those prescribed or required for medical reasons: No Advance Directives: Yes Advance Directives on File: Yes Advance Directives Date on File: 02/14/21 Nutrition Risks: No Nutritional Risk service: No Current occupational status: retired Current occupation: [employer] Meds Allergies Allergy/AdvReac Type Severity Reaction Status Date / Time No Known Allergies Allergy Verified 07/21/23 18:20 [No Known Allergies*] Active Medications: Current Medications Acetaminophen (Acetaminophen 325 Mg Tablet) 975 mg PO Q6H PRN PRN Reason: Fever >101 Atorvastatin Calcium (Atorvastatin Calcium 10 Mg Tablet) 10 mg PO DAILY [facility] Last Admin: 07/22/23 08:55 Dose: 10 mg Digoxin (Digoxin 0.125 Mg Tablet) 0.125 mg PO DAILY@1800 [facility] Lactated Ringer's (Lr) 1,000 mls @ 100 mls/hr IVCONT .Q10H [facility] Last Infusion: 07/22/23 08:51 Dose: 100 mls/hr Ceftriaxone Sodium 1 gm/ (Sodium Chloride) 50 mls @ 100 mls/hr IV Q24H [facility] Last Admin: 07/22/23 08:56 Dose: 100 mls/hr Metronidazole (Flagyl) 500 mg in 100 mls @ 100 mls/hr IV Q8H [facility] Last Infusion: 07/22/23 08:50 Dose: Infused Levothyroxine Sodium (Levothyroxine Sodium 100 Mcg Tablet) 100 mcg PO DAILY@0600 [facility] Last Admin: 07/22/23 05:59 Dose: 100 mcg Metoprolol Succinate (Metoprolol Succinate Er 50 Mg Tab.Er.24h) 50 mg PO BID [facility]; Protocol Last Admin: 07/22/23 08:55 Dose: 50 mg Nifedipine (Nifedipine Er 30 Mg Tab.Er.24) 30 mg PO DAILY@0900 [facility]; Protocol Last Admin: 07/22/23 08:55 Dose: 30 mg Ondansetron HCl (Ondansetron Hcl 4 Mg/2 Ml Vial) 4 mg IVPUSH Q8H PRN PRN Reason: Nausea and Vomiting Pantoprazole Sodium (Pantoprazole Sodium 40 Mg/10 Ml Vial) 40 mg IVPUSH BID [facility] Last Admin: 07/22/23 09:02 Dose: 40 mg Sodium Chloride (0.9 % Sodium Chloride Flush 3 Ml Syringe) 3 ml IVFLUSH QSHIFT [facility] Last Admin: 07/22/23 08:57 Dose: Not Given Valsartan (Valsartan 320 Mg Tablet) 320 mg PO DAILY@1200 [facility]; Protocol Home Medications ?Medication ?Instructions ?Recorded ?Confirmed ?Last Taken ?Type atorvastatin 10 mg tablet 10 mg PO DAILY 02/08/21 07/21/23 07/13/23 History estradiol 0.01% (0.1 mg/gram) 1 g vaginal SUWE 02/08/21 07/21/23 07/12/23 History vaginal cream valsartan 320 mg tablet 320 mg PO DAILY@1200 02/08/21 07/21/23 07/13/23 History nifedipine 30 mg tablet,extended 30 mg PO DAILY@0900 04/13/22 07/21/23 07/13/23 History release 24 hr apixaban 5 mg tablet (Eliquis) 5 mg PO BID 10/13/22 07/21/23 07/13/23 History metoprolol succinate 50 mg 50 mg PO BID 10/13/22 07/21/23 07/13/23 History tablet,extended release 24 hr digoxin 125 mcg (0.125 mg) tablet 125 mcg PO DAILY@1800 07/13/23 07/21/23 07/12/23 History (Digox) Physical Exam 2 Vital Signs: Vital Signs: Last Vital Signs Temp 98.3 F 07/22/23 05:16 Pulse 87 07/22/23 08:55 Resp 16 07/22/23 05:16 BP 158/65 H 07/22/23 08:55 Pulse Ox 94 07/22/23 05:16 O2 Del Method Room Air 07/22/23 05:16 BMI result Body Mass Index 22.8 Elderly female No acute distress Abdomen soft, nontender, nondistended, no guarding Mild peripheral edema Results Labs 07/22/23 06:05 07/22/23 05:57 Labs: Short CBC 07/21/23 07/22/23 Range/Units 18:52 06:05 WBC 30.1 H* 28.0 H (4.8-10.8) X10*3/uL Hgb 10.5 L 9.6 L (12.0-16.0) g/dl Hct 33.9 L 32.4 L (37.0-47.0) % Plt Count 264 238 (160-400) X10*3/uL BMP 07/21/23 07/22/23 18:52 05:57 Sodium 135 138 Potassium 3.8 3.6 Chloride 98 103 Carbon Dioxide 27 27 BUN 20 H 20 H Creatinine 0.68 0.77 Calcium 9.4 D 8.8 D Liver Function 07/21/23 07/22/23 Range/Units 18:52 05:57 Total Bilirubin 1.6 H 1.3 H (0.0-1.0) mg/dL AST 26 12 (5-31) U/L ALT 14 11 (0-31) U/L Alkaline Phosphatase 88 103 (39-117) U/L Albumin 3.7 3.2 L (3.5-5.0) g/dL Assessment and Plan (1) Abdominal pain: Status: Acute (2) Diarrhea: Status: Acute (3) Vomiting: Status: Acute (4) Acute lower gastrointestinal bleeding: Status: Acute Plan Given the rapid onset and then resolution of the symptoms, most consistent with infectious enterocolitis - pt already with clinical improvement. Right-sided colon ischemia also considered given age, hx of AFib and high white count on presentation. However this is typically associated with severe abd pain out of proportion with acidosis - abd exam benign and patient asymptomatic currently. Can check CTA to r/o occlusion though low clinical suspicion as above Plan: - CTA abd/pel - If neg, ok to resume clears and advance as tolerated - LGIB likely from hemorrhoids noted on exam and does not appear to be large volume given H/H trend Thank you for allowing me to participate in her care. Please do not hesitate to reach out for any questions or concerns. Procedures Date of Service Date of Service: 07/22/23
--- NOTE | 2023-07-22 11:55 | PC.NURSE ---
pharmacy contacted for pts Valsartan.
--- NOTE | 2023-07-22 13:10 | P.PNIM_ITS ---
Subjective Subjective Date of Service: 07/22/23 Interval History: seen and examined this morning follow up for abdominal pain no further rectal bleeding Review of Systems Review of Systems: Yes all other systems are reviewed and are negative Constitutional Constitutional: Denies chills and Denies fever(s) Cardiovascular Cardiovascular: Denies chest pain, Denies palpitations and Denies dyspnea Respiratory Respiratory: Denies cough and Denies dyspnea Endocrine Endocrine: Denies palpitations Physical Exam 2 Vital Signs: Vital Signs: Last Vital Signs Temp 98.3 F 07/22/23 05:16 Pulse 87 07/22/23 08:55 Resp 16 07/22/23 05:16 BP 158/65 H 07/22/23 08:55 Pulse Ox 94 07/22/23 05:16 O2 Del Method Room Air 07/22/23 05:16 BMI result Body Mass Index 22.8 Const: General: cooperative, comfortable, no acute distress, alert and awake Nutritional Appearance: average body habitus Orientation/consciousness: p atient oriented x3 Resp: Effort & Inspection: normal respiratory effort, able to speak in complete sentences, no respiratory distress and no use of accessory muscles Cardio: Rate: regular rate GI: Inspection: No distended Palpation (GI): Soft to palpation and nontender Neuro: General: patient oriented x3, moves all extremities and CN's II-XI intact bilaterally Objective Data Active Medications Acetaminophen (Acetaminophen 325 Mg Tablet) 975 mg PO Q6H PRN PRN Reason: Fever >101 Atorvastatin Calcium (Atorvastatin Calcium 10 Mg Tablet) 10 mg PO DAILY [facility] Last Admin: 07/22/23 08:55 Dose: 10 mg Documented By: LESA Digoxin (Digoxin 0.125 Mg Tablet) 0.125 mg PO DAILY@1800 [facility] Lactated Ringer's (Lr) 1,000 mls @ 100 mls/hr IVCONT .Q10H [facility] Last Infusion: 07/22/23 08:51 Dose: 100 mls/hr Documented By: JONATHAN Ceftriaxone Sodium 1 gm/ (Sodium Chloride) 50 mls @ 100 mls/hr IV Q24H [facility] Last Infusion: 07/22/23 10:39 Dose: Infused Documented By: JONATHAN Metronidazole (Flagyl) 500 mg in 100 mls @ 100 mls/hr IV Q8H [facility] Last Infusion: 07/22/23 08:50 Dose: Infused Documented By: JONATHAN Levothyroxine Sodium (Levothyroxine Sodium 100 Mcg Tablet) 100 mcg PO DAILY@0600 [facility] Last Admin: 07/22/23 05:59 Dose: 100 mcg Documented By: MARIANELA Metoprolol Succinate (Metoprolol Succinate Er 50 Mg Tab.Er.24h) 50 mg PO BID [facility]; Protocol Last Admin: 07/22/23 08:55 Dose: 50 mg Documented By: LESA Nifedipine (Nifedipine Er 30 Mg Tab.Er.24) 30 mg PO DAILY@0900 [facility]; Protocol Last Admin: 07/22/23 08:55 Dose: 30 mg Documented By: LESA Ondansetron HCl (Ondansetron Hcl 4 Mg/2 Ml Vial) 4 mg IVPUSH Q8H PRN PRN Reason: Nausea and Vomiting Pantoprazole Sodium (Pantoprazole Sodium 40 Mg/10 Ml Vial) 40 mg IVPUSH BID [facility] Last Admin: 07/22/23 09:02 Dose: 40 mg Documented By: LESA Sodium Chloride (0.9 % Sodium Chloride Flush 3 Ml Syringe) 3 ml IVFLUSH QSHIFT [facility] Last Admin: 07/22/23 08:57 Dose: Not Given Documented By: LESA Non-Admin Reason: See Note Valsartan (Valsartan 320 Mg Tablet) 320 mg PO DAILY@1200 [facility]; Protocol Labs 07/22/23 06:05 07/22/23 05:57 Labs: Laboratory Results - last 24 hr 07/21/23 07/21/23 07/21/23 18:52 19:25 20:39 MCV 74.0 L MCH 22.9 L MCHC 31.0 RDW 25.3 H Plt Count 264 MPV 9.7 Immature Gran % (Auto) 4.9 H Neut % (Auto) 86.3 H Lymph % (Auto) 1.4 L [place] % (Auto) 7.0 Eos % (Auto) 0.2 Baso % (Auto) 0.2 Lymph # (Auto) 0.4 L [place] # (Auto) 2.1 H Eos # (Auto) 0.1 Baso # (Auto) 0.1 Abs Immat Gran (auto) 1.47 H Absolute Neuts (auto) 25.9 H Absolute Nucleated RBC 0.000 Nucleated RBC % (auto) 0.0 Smear Tech's Comments VERIFIED PT 12.2 INR 1.0 APTT 23.2 L Anion Gap 14 Estim Creat Clear Calc 57.6 Estimated GFR > 60 Random Glucose 156 H Lactic Acid 1.8 Calcium 9.4 D Magnesium Total Bilirubin 1.6 H AST 26 ALT 14 Alkaline Phosphatase 88 C-Reactive Protein 3.23 H Total Protein 6.5 Albumin 3.7 Lipase 23 Stool Occult Blood POSITIVE Digoxin Influenza Type A (PCR) NEGATIVE Influenza Type B (PCR) NEGATIVE RSV RNA Qual (PCR) NEGATIVE SARS-CoV-2 RNA (RT-PCR) NEGATIVE Blood Type B Negative Antibody Screen NEGATIVE 07/22/23 07/22/23 05:57 06:05 MCV 76.2 L MCH 22.6 L MCHC 29.6 L RDW 25.9 H Plt Count 238 MPV 10.1 Immature Gran % (Auto) 4.9 H Neut % (Auto) 83.8 H Lymph % (Auto) 2.8 L [place] % (Auto) 8.1 Eos % (Auto) 0.1 Baso % (Auto) 0.3 Lymph # (Auto) 0.8 L [place] # (Auto) 2.3 H Eos # (Auto) 0.0 Baso # (Auto) 0.1 Abs Immat Gran (auto) 1.37 H Absolute Neuts (auto) 23.5 H Absolute Nucleated RBC 0.000 Nucleated RBC % (auto) 0.0 Smear Tech's Comments VERIFIED PT INR APTT Anion Gap 12 Estim Creat Clear Calc 50.9 Estimated GFR > 60 Random Glucose 129 H Lactic Acid Calcium 8.8 D Magnesium 1.6 Total Bilirubin 1.3 H AST 12 ALT 11 Alkaline Phosphatase 103 C-Reactive Protein Total Protein 5.6 L Albumin 3.2 L Lipase Stool Occult Blood Digoxin 0.5 L Influenza Type A (PCR) Influenza Type B (PCR) RSV RNA Qual (PCR) SARS-CoV-2 RNA (RT-PCR) Blood Type Antibody Screen Assessment and Plan (1) Acute lower gastrointestinal bleeding: Status: Acute Plan This is an 87 year old woman recently admitted for GI bleed found to have diverticulosis, internal hemorrhoids and had 2 polyps removed who presented with nausea and bloody diarrhea found have evidence of enterocolitis on CT scan. Nausea, vomiting, diarrhea lower abdominal pain secondary to enterocolitis NPO Continue IVF Continue IV ceftriaxone and Flagyl Protonix 40 mg IV twice daily C.diff and viral panel pending GI consult pending Rectal bleeding, bright red. Likely related to internal hemorrhoids vs due to above no further bleeding this am H/H stable Slightly elevated bilirubin, improving. Normal transaminases, lipase and alk-phos. 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 TSH high last admission,levothyroxine dose adjustment. outpatient follow up Essential hypertension. Continue metoprolol and nifedipine, valsartan Atrial fibrillation, rate controlled. Continue metoprolol. Eliquis on hold due to active GI bleeding. Hyperlipidemia. Continue statin. DVT prophylaxis: SCDs only GI prophylaxis: PPI Code status: Full ongoing hospitalization for management of acute enterocolitis and lower GI bleeding treatment with empiric IV antibiotic therapy, IV fluids and antiemetic therapy as well as evaluation by subspecialty. Patient also will need close monitoring of blood workup and vital signs. Quality Stroke Does the patient have a stroke diagnosis?: No VTE Prior VTE?: No VTE Risk Level:: Medical - moderate - high VTE Device Contraindication: N/A - Device Ordered VTE Drug Contraindication: Treatment Not Indicated
[2023-07-22] MEDS: Valsartan 320 MG TABLET PO (13:19)
--- NOTE | 2023-07-22 16:54 | PC.NURSE ---
Pt taken to CT scan, alerted by senior technical analyst that pt had blood underneath her on the bed. Pt assessed, denies any pain or new complaints. Pt reports she did not feel any bleeding from her rectum today. Area of blood noted on bed, provider notified. Vital signs assessed and are stable. Provider ordered to continue with scan.
[2023-07-22] MEDS: iohexoL 350 MG/ML 100 ML INFUS..BTL IV (17:02)
[2023-07-22] MEDS: Digoxin 0.125 MG TABLET PO (17:29)
[2023-07-23] VITALS (8 sets, daily range): BP systolic 119–160; BP diastolic 65–84; PULSE 62–98; RESP 15–21; TEMP 36.1–37.6; O2SAT 93–96
[2023-07-23] MEDS: Levothyroxine Sodium 100 MCG TABLET PO (05:23)
[2023-07-23] MEDS: Lactated Ringers 1,000 ML 100 ML IVCONT ×2 (05:23→13:51)
[2023-07-23] MEDS: 0.9 % Sodium Chloride Flush 3 ML SYRINGE IVFLUSH ×4 (05:23→21:12)
[2023-07-23] MEDS: metroNIDAZOLE/NS 500 MG/100 ML PIGGYBACK 100 MG IV ×3 (05:23→21:12)
[2023-07-23 07:31] LABS: Hematocrit 32.3 % (37.0-47.0); Hemoglobin 9.6 g/dl (12.0-16.0); Mean Corpuscular HGB Conc 29.7 g/dl (31.0-35.0); Mean Corpuscular Hemoglobin 22.9 pg (27.0-33.0); Mean Corpuscular Volume 76.9 fL (80.0-98.0); Mean Platelet Volume 10.8 fL (9.4-12.3); Platelet Count 264 X10*3/uL (160-400); Red Cell Distribution Width 26.2 % (11.0-16.0); White Blood Count 25.3 X10*3/uL (4.8-10.8)
[2023-07-23] MEDS: Metoprolol Succinate ER 50 MG TAB.ER.24H PO ×2 (08:53→21:13)
[2023-07-23] MEDS: Pantoprazole Sodium 40 MG/10 ML VIAL IVPUSH (08:53)
[2023-07-23] MEDS: NIFEdipine ER 30 MG TAB.ER.24 PO (08:53)
[2023-07-23] MEDS: cefTRIAXone sodium 1 GM in 0.9 % Sodium Chloride 50 ML IV (08:53)
[2023-07-23] MEDS: Atorvastatin Calcium 10 MG TABLET PO (08:54)
[2023-07-23] MEDS: Valsartan 320 MG TABLET PO (12:33)
--- NOTE | 2023-07-23 13:02 | MHC.CM.PN ---
Pt has not yet been cleared for DC. CM met with her to discuss what services she has used in the past. She went to [facility] 15 months ago for STR after she fractured her ankle. She was independent in her home, with her daughter living next door prior to hosp. stay. CM will follow and assist with DC plan.
--- NOTE | 2023-07-23 14:02 | P.PNIM_ITS ---
Subjective Subjective Date of Service: 07/23/23 Interval History: seen and examined this morning follow up for GI bleeding, colitis had small amount of bleeding yesterday afternoon no abdominal pain Review of Systems Review of Systems: Yes all other systems are reviewed and are negative Constitutional Constitutional: Denies chills and Denies fever(s) Cardiovascular Cardiovascular: Denies chest pain, Denies palpitations and Denies dyspnea Respiratory Respiratory: Denies cough and Denies dyspnea Gastrointestinal Gastrointestinal: Denies abdominal pain Endocrine Endocrine: Denies palpitations Physical Exam 2 Vital Signs: Vital Signs: Last Vital Signs Temp 97.3 F 07/23/23 11:41 Pulse 81 07/23/23 11:41 Resp 18 07/23/23 11:41 BP 145/65 H 07/23/23 12:33 Pulse Ox 93 07/23/23 11:41 O2 Del Method Room Air 07/23/23 11:41 BMI result Body Mass Index 20.0 Const: General: cooperative, comfortable, no acute distress, alert and awake Nutritional Appearance: average body habitus Orientation/consciousness: p atient oriented x3 Resp: Effort & Inspection: normal respiratory effort, able to speak in complete sentences, no respiratory distress and no use of accessory muscles Cardio: Rate: regular rate GI: Inspection: No distended Palpation (GI): Soft to palpation and nontender Neuro: General: patient oriented x3, moves all extremities and CN's II-XI intact bilaterally Objective Data Active Medications Acetaminophen (Acetaminophen 325 Mg Tablet) 975 mg PO Q6H PRN PRN Reason: Fever >101 Atorvastatin Calcium (Atorvastatin Calcium 10 Mg Tablet) 10 mg PO DAILY [facility] Last Admin: 07/23/23 08:54 Dose: 10 mg Documented By: LULU Digoxin (Digoxin 0.125 Mg Tablet) 0.125 mg PO DAILY@1800 [facility] Last Admin: 07/22/23 17:29 Dose: 0.125 mg Documented By: ALFRED Lactated Ringer's (Lr) 1,000 mls @ 100 mls/hr IVCONT .Q10H [facility] Last Admin: 07/23/23 13:51 Dose: 100 mls/hr Documented By: LULU Ceftriaxone Sodium 1 gm/ (Sodium Chloride) 50 mls @ 100 mls/hr IV Q24H [facility] Last Infusion: 07/23/23 09:23 Dose: Infused Documented By: LULU Metronidazole (Flagyl) 500 mg in 100 mls @ 100 mls/hr IV Q8H [facility] Last Admin: 07/23/23 13:51 Dose: 100 mls/hr Documented By: LULU Levothyroxine Sodium (Levothyroxine Sodium 100 Mcg Tablet) 100 mcg PO DAILY@0600 [facility] Last Admin: 07/23/23 05:23 Dose: 100 mcg Documented By: CAROLYN Metoprolol Succinate (Metoprolol Succinate Er 50 Mg Tab.Er.24h) 50 mg PO BID [facility]; Protocol Last Admin: 07/23/23 08:53 Dose: 50 mg Documented By: LULU Nifedipine (Nifedipine Er 30 Mg Tab.Er.24) 30 mg PO DAILY@0900 [facility]; Protocol Last Admin: 07/23/23 08:53 Dose: 30 mg Documented By: LULU Ondansetron HCl (Ondansetron Hcl 4 Mg/2 Ml Vial) 4 mg IVPUSH Q8H PRN PRN Reason: Nausea and Vomiting Pantoprazole Sodium (Pantoprazole Sodium 40 Mg/10 Ml Vial) 40 mg IVPUSH BID [facility] Last Admin: 07/23/23 08:53 Dose: 40 mg Documented By: LULU Sodium Chloride (0.9 % Sodium Chloride Flush 3 Ml Syringe) 3 ml IVFLUSH QSHIFT [facility] Last Admin: 07/23/23 13:52 Dose: 3 ml Documented By: LULU Valsartan (Valsartan 320 Mg Tablet) 320 mg PO DAILY@1200 [facility]; Protocol Last Admin: 07/23/23 12:33 Dose: 320 mg Documented By: LULU Labs 07/23/23 06:23 07/22/23 05:57 Labs: Laboratory Results - last 24 hr 07/23/23 06:23 MCV 76.9 L MCH 22.9 L MCHC 29.7 L RDW 26.2 H Plt Count 264 MPV 10.8 Absolute Nucleated RBC 0.000 Nucleated RBC % (auto) 0.0 Microbiology Microbiology Results: Microbiology 07/21/23 21:20 Blood Culture - Preliminary Blood - Venous No growth after 24 hours. 07/21/23 20:39 Blood Culture - Preliminary Blood - Venous No growth after 24 hours. Assessment and Plan (1) Abdominal pain: Status: Acute (2) Acute GI bleeding: Status: Acute Plan This is an 87 year old woman recently admitted for GI bleed found to have diverticulosis, internal hemorrhoids and had 2 polyps removed who presented with nausea and bloody diarrhea found have evidence of enterocolitis on CT scan. Nausea, vomiting, diarrhea lower abdominal pain secondary to enterocolitis white count trending down, no abdominal pain will trial clear liquids Continue IV ceftriaxone and Flagyl C.diff and viral panel ordered but no significant diarrhea since admission for collection lactic acid normal CTA SMA and SMV patent seen by GI -advance diet as tolerated acute GI bleeding, likely lower GI previous colonoscopy with intermal hemorrhoids and diverticulosis Likely related to internal hemorrhoids small amount of bleeding yesterday afternoon H/H has remained stable Eliquis on hold Slightly elevated bilirubin, improving. 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 TSH high last admission and levothyroxine dose was adjusted. outpatient follow up Essential hypertension. Continue metoprolol and nifedipine, valsartan Atrial fibrillation, rate controlled. Continue metoprolol. Eliquis on hold due to active GI bleeding. Hyperlipidemia. Continue statin. DVT prophylaxis: SCDs only GI prophylaxis: PPI Code status: Full ongoing hospitalization for management of acute enterocolitis and lower GI bleeding treatment with empiric IV antibiotic therapy, IV fluids. Patient also will need close monitoring of blood workup and vital signs. Quality Stroke Does the patient have a stroke diagnosis?: No VTE Prior VTE?: No VTE Risk Level:: Medical - moderate - high VTE Device Contraindication: N/A - Device Ordered VTE Drug Contraindication: Treatment Not Indicated
[2023-07-23] MEDS: Digoxin 0.125 MG TABLET PO (17:54)
[2023-07-23] MEDS: ondansetron HCL 4 MG/2 ML VIAL IVPUSH (21:21)
[2023-07-24] VITALS (8 sets, daily range): BP systolic 129–165; BP diastolic 64–81; PULSE 80–89; RESP 16–18; TEMP 36.1–36.8; O2SAT 94–96
[2023-07-24] MEDS: Pantoprazole Sodium 40 MG/10 ML VIAL IVPUSH (06:14)
[2023-07-24] MEDS: Levothyroxine Sodium 100 MCG TABLET PO (06:14)
[2023-07-24] MEDS: metroNIDAZOLE/NS 500 MG/100 ML PIGGYBACK 100 MG IV ×3 (06:14→20:37)
[2023-07-24 06:37] LABS: MANUAL DIFF FLAG NO
[2023-07-24 06:58] LABS: Basophils Percent Auto 0.2 % (0-2); Eosinophils Absolute Auto 0.1 X10*3/uL (0.0-0.4); Eosinophils Percent Auto 0.3 % (0-4); Hematocrit 35.5 % (37.0-47.0); Hemoglobin 10.5 g/dl (12.0-16.0); Imm Gran Abs Auto 0.82 X10*3/uL (0.00-0.03); Imm Gran Pct Auto 4.4 % (0.0-0.4); Lymphocytes Absolute Auto 1.4 X10*3/uL (1.2-4.9); Lymphocytes Percent Auto 7.2 % (20-40); Mean Corpuscular HGB Conc 29.6 g/dl (31.0-35.0); Mean Corpuscular Hemoglobin 22.7 pg (27.0-33.0); Mean Corpuscular Volume 76.7 fL (80.0-98.0); Mean Platelet Volume 10.2 fL (9.4-12.3); Monocytes Absolute Auto 1.2 X10*3/uL (0.1-1.2); Monocytes Percent Auto 6.2 % (2-11); Neutrophils Absolute Auto 15.4 x10*3/uL (2.0-8.3); Neutrophils Percent Auto 81.7 % (45-73); Platelet Count 270 X10*3/uL (160-400); Red Blood Count 4.63 X10*6/uL (4.20-5.50); Red Cell Distribution Width 25.9 % (11.0-16.0); White Blood Count 18.8 X10*3/uL (4.8-10.8)
[2023-07-24] MEDS: Metoprolol Succinate ER 50 MG TAB.ER.24H PO ×2 (08:54→20:36)
[2023-07-24] MEDS: cefTRIAXone sodium 1 GM in 0.9 % Sodium Chloride 50 ML IV (08:54)
[2023-07-24] MEDS: NIFEdipine ER 30 MG TAB.ER.24 PO (08:55)
[2023-07-24] MEDS: Atorvastatin Calcium 10 MG TABLET PO (08:55)
[2023-07-24] MEDS: 0.9 % Sodium Chloride Flush 3 ML SYRINGE IVFLUSH ×3 (08:55→20:37)
[2023-07-24] MEDS: ondansetron HCL 4 MG/2 ML VIAL IVPUSH ×2 (09:07→16:44)
[2023-07-24] MEDS: Valsartan 320 MG TABLET PO (13:11)
--- NOTE | 2023-07-24 14:27 | P.PNIM_ITS ---
Subjective Subjective Date of Service: 07/24/23 Interval History: seen and examined this morning Follow-up for colitis, GI bleeding Had some nausea and acid reflux overnight. No abdominal pain. No diarrhea, no bleeding Review of Systems Review of Systems: Yes all other systems are reviewed and are negative Constitutional Constitutional: Denies chills and Denies fever(s) Cardiovascular Cardiovascular: Denies chest pain, Denies palpitations and Denies dyspnea Respiratory Respiratory: Denies cough and Denies dyspnea Gastrointestinal Gastrointestinal: Denies abdominal pain, Denies nausea and Denies vomiting Endocrine Endocrine: Denies palpitations Physical Exam 2 Vital Signs: Vital Signs: Last Vital Signs Temp 97.8 F 07/24/23 11:01 Pulse 84 07/24/23 11:01 Resp 18 07/24/23 11:01 BP 146/76 H 07/24/23 13:11 Pulse Ox 95 07/24/23 11:01 O2 Del Method Room Air 07/24/23 11:01 BMI result Body Mass Index 20.0 Const: General: cooperative, comfortable, no acute distress, alert and awake Nutritional Appearance: average body habitus Orientation/consciousness: p atient oriented x3 Resp: Effort & Inspection: normal respiratory effort, able to speak in complete sentences, no respiratory distress and no use of accessory muscles Cardio: Rate: regular rate GI: Inspection: No distended Palpation (GI): Soft to palpation and nontender Neuro: General: patient oriented x3, moves all extremities and CN's II-XI intact bilaterally Objective Data Active Medications Acetaminophen (Acetaminophen 325 Mg Tablet) 975 mg PO Q6H PRN PRN Reason: Fever >101 Atorvastatin Calcium (Atorvastatin Calcium 10 Mg Tablet) 10 mg PO DAILY [facility] Last Admin: 07/24/23 08:55 Dose: 10 mg Documented By: LULU Digoxin (Digoxin 0.125 Mg Tablet) 0.125 mg PO DAILY@1800 [facility] Last Admin: 07/23/23 17:54 Dose: 0.125 mg Documented By: LULU Ceftriaxone Sodium 1 gm/ (Sodium Chloride) 50 mls @ 100 mls/hr IV Q24H [facility] Last Infusion: 07/24/23 09:24 Dose: Infused Documented By: LULU Metronidazole (Flagyl) 500 mg in 100 mls @ 100 mls/hr IV Q8H [facility] Last Infusion: 07/24/23 14:11 Dose: Infused Documented By: LULU Levothyroxine Sodium (Levothyroxine Sodium 100 Mcg Tablet) 100 mcg PO DAILY@0600 [facility] Last Admin: 07/24/23 06:14 Dose: 100 mcg Documented By: JAYESH Metoprolol Succinate (Metoprolol Succinate Er 50 Mg Tab.Er.24h) 50 mg PO BID [facility]; Protocol Last Admin: 07/24/23 08:54 Dose: 50 mg Documented By: LULU Nifedipine (Nifedipine Er 30 Mg Tab.Er.24) 30 mg PO DAILY@0900 [facility]; Protocol Last Admin: 07/24/23 08:55 Dose: 30 mg Documented By: LULU Omeprazole (Omeprazole 20 Mg Capsule.Dr) 20 mg PO BID@0630,1630 [facility] Ondansetron HCl (Ondansetron Hcl 4 Mg/2 Ml Vial) 4 mg IVPUSH Q8H PRN PRN Reason: Nausea and Vomiting Last Admin: 07/24/23 09:07 Dose: 4 mg Documented By: LULU Sodium Chloride (0.9 % Sodium Chloride Flush 3 Ml Syringe) [facility] Admin: 07/24/23 13:11 Dose: 3 ml Documented By: LULU Valsartan (Valsartan 320 Mg Tablet) 320 mg PO DAILY@1200 [facility]; Protocol Last Admin: 07/24/23 13:11 Dose: 320 mg Documented By: LULU Labs 07/24/23 06:19 07/22/23 05:57 Labs: Laboratory Results - last 24 hr 07/24/23 06:19 MCV 76.7 L MCH 22.7 L MCHC 29.6 L RDW 25.9 H Plt Count 270 MPV 10.2 Immature Gran % (Auto) 4.4 H Neut % (Auto) 81.7 H Lymph % (Auto) 7.2 L [place] % (Auto) 6.2 Eos % (Auto) 0.3 Baso % (Auto) 0.2 Lymph # (Auto) 1.4 [place] # (Auto) 1.2 Eos # (Auto) 0.1 Baso # (Auto) 0.0 Abs Immat Gran (auto) 0.82 H Absolute Neuts (auto) 15.4 H Absolute Nucleated RBC 0.000 Nucleated RBC % (auto) 0.0 Microbiology Microbiology Results: Microbiology 07/21/23 21:20 Blood Culture - Preliminary Blood - Venous No growth after 48 hours. 07/21/23 20:39 Blood Culture - Preliminary Blood - Venous No growth after 48 hours. Assessment and Plan (1) Abdominal pain: Status: Acute (2) Acute lower gastrointestinal bleeding: Status: Acute Plan This is an 87 year old woman recently admitted for GI bleed found to have diverticulosis, internal hemorrhoids and had 2 polyps removed who presented with nausea and bloody diarrhea found have evidence of enterocolitis on CT scan. Nausea, vomiting, diarrhea lower abdominal pain secondary to enterocolitis white count trending down, no abdominal pain diet advanced to bland Continue IV ceftriaxone and Flagyl, started 07/21 C.diff and viral panel ordered but no significant diarrhea since admission for collection lactic acid normal CTA SMA and SMV patent seen by GI acute GI bleeding, likely lower GI previous colonoscopy with internal hemorrhoids and diverticulosis Likely related to internal hemorrhoids no bleeding for 24 hours H/H has remained stable Eliquis on hold - d/w GI, plan to hold until 07/29 Slightly elevated bilirubin, improving. 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 TSH high last admission and levothyroxine dose was adjusted. outpatient follow up Essential hypertension. Continue metoprolol and nifedipine, valsartan Atrial fibrillation, rate controlled. Continue metoprolol, digoxin. Eliquis on hold due to GI bleeding. Hyperlipidemia. Continue statin. DVT prophylaxis: SCDs only Code status: Full ongoing hospitalization for management of acute enterocolitis and lower GI bleeding treatment with IV antibiotic therapy, IV fluids. Patient also will need close monitoring of blood workup and vital signs. Quality Stroke Does the patient have a stroke diagnosis?: No VTE Prior VTE?: No VTE Risk Level:: Medical - moderate - high VTE Device Contraindication: N/A - Device Ordered VTE Drug Contraindication: Treatment Not Indicated
[2023-07-24] MEDS: Omeprazole 20 MG CAPSULE.DR PO (16:43)
[2023-07-24] MEDS: Digoxin 0.125 MG TABLET PO (16:43)
[2023-07-25] VITALS: BP 158/72; PULSE 100; RESP 16; TEMP 36.9; O2SAT 92
[2023-07-25 03:50] VITALS: BP 160/72; PULSE 77; RESP 16; TEMP 36.6; O2SAT 92
[2023-07-25] MEDS: Omeprazole 20 MG CAPSULE.DR PO (05:46)
[2023-07-25] MEDS: metroNIDAZOLE/NS 500 MG/100 ML PIGGYBACK 100 MG IV (05:46)
[2023-07-25] MEDS: Levothyroxine Sodium 100 MCG TABLET PO (05:46)
[2023-07-25 07:47] LABS: Hematocrit 31.3 % (37.0-47.0); Hemoglobin 9.6 g/dl (12.0-16.0); Mean Corpuscular HGB Conc 30.7 g/dl (31.0-35.0); Mean Corpuscular Hemoglobin 22.7 pg (27.0-33.0); Mean Platelet Volume 9.9 fL (9.4-12.3); Platelet Count 283 X10*3/uL (160-400); Red Blood Count 4.23 X10*6/uL (4.20-5.50); Red Cell Distribution Width 24.9 % (11.0-16.0); White Blood Count 12.5 X10*3/uL (4.8-10.8)
[2023-07-25 07:53] VITALS: BP 143/69; PULSE 84; RESP 18; TEMP 36.5; O2SAT 93
[2023-07-25 08:03] VITALS: BP 143/69; PULSE 84
[2023-07-25] MEDS: cefTRIAXone sodium 1 GM in 0.9 % Sodium Chloride 50 ML IV (08:03)
[2023-07-25] MEDS: NIFEdipine ER 30 MG TAB.ER.24 PO (08:03)
[2023-07-25] MEDS: Metoprolol Succinate ER 50 MG TAB.ER.24H PO (08:03)
[2023-07-25] MEDS: 0.9 % Sodium Chloride Flush 3 ML SYRINGE IVFLUSH (08:04)
[2023-07-25] MEDS: Atorvastatin Calcium 10 MG TABLET PO (08:04)
--- NOTE | 2023-07-25 10:44 | PM.DS ---
DS: Providers Provider Date of Service: 07/25/23 Date of admission: 07/21/23 21:34 Date of discharge: 07/25/23 Primary care physician: Cesar Estrada MD Consults: 07/21/23 20:32 Consult to Gastroenterology Routine Consulting Provider: Yvonne Gutierrez Reason for consultation: lower GI bleed Has provider been notified: Yes Attending physician on discharge: Linda Shipley Discharging clinician: Jessie Chung DS: Diagnosis Discharge Diagnosis (1) Abdominal pain: Status: Acute (2) Acute lower gastrointestinal bleeding: Status: Acute DS: Summary Hospital Course Hospital Course: From H&P on the day of admission Licha Holguin is 87 years old woman with past medical history significant for atrial fibrillation (not currently taking Eliquis due to recent GI bleeding), recent GI bleeding requiring blood transfusions, hypothyroidism, hyperlipidemia and essential hypertension was brought to the emergency department via ambulance due to lower abdominal pain associated with nausea dark brown vomiting and bright red rectal bleeding. She denied any headache, dizziness, chest pain or shortness on breath. Recently, she underwent an EGD and colonoscopy and was found to have hiatal, hernia diverticulosis, internal hemorrhoids and polyps (removed). Patient has not been taking Eliquis since that hospitalization. She denied alcohol abuse, illicit drug use or In the ED, she was found to have stable vital signs. Blood workup was remarkable for marked leukocytosis 30.1. Hemoglobin is at baseline. Platelets are normal. There are no electrolyte imbalances. BUN is 20. Creatinine is 0.69. LFTs are normal. Total bilirubin is slightly elevated (improved from prior 4.9--> 1.6. Albumin is normal. Viral testing for COVID-19, influenza and RSV is negative. Stool for occult blood is positive. Abdomen and pelvis CT scan w/ IV contrast showed showed findings consistent with enterocolitis (involving the distal small bowel sparing the terminal ileum), diverticulosis without diverticulitis, large esophageal hernia, gallstones, fibroid uterus and questions pancreatic sick versus focal main pancreatic duct dilatation. ED tx: NS 1 L bolus, morphine 2 mg IV, Zofran 4 mg IV, Zosyn 4.5 g IV. Nausea, vomiting, diarrhea lower abdominal pain secondary to enterocolitis. [place] trended [place] 17427-43.5 on the day of discharge. She was treated with I V ceftriaxone and Flagyl. C.diff and viral panel ordered but no significant diarrhea since admission for collection. lactic acid was normal and CTA of the abdomen and pelvis showed patent SMA and SMV. She was seen by GI, no further inmpatient work up necessary at this time. Her abdominal pain gradually improved and her diet was gradually advanced. She was tolerating a regular diet this morning. Her initial CT scan did show a large esophageal hernia. Recommend outpatient follow-up with GI. acute GI bleeding, likely lower GI previous colonoscopy with internal hemorrhoids and diverticulosis Likely related to internal hemorrhoids no bleeding for 24 hours H/H has remained stable Eliquis on hold - d/w GI, plan to hold until 07/29 Slightly elevated bilirubin (1.3) Normal transaminases, lipase and alk-phos CTA with dilation of pancreatic duct in the body and tail up to 1cm - will need MRCP as outpatient Hypothyroidism secondary to thyroidectomy. TSH high last admission and levothyroxine dose was adjusted. outpatient follow up for repeat labs in 4-6 weeks as previously recommended Time Attestation Discharge Coordination Time (in mins): 35 Quality: Safe Use of Opioids Does Pt have an Active Cancer Diagnosis on the Problem List?: No Quality: Stroke Does the patient have a stroke diagnosis?: No Physical Exam Vital Signs: Vital Signs: Last Vital Signs Temp 97.7 F 07/25/23 07:53 Pulse 84 07/25/23 08:03 Resp 18 07/25/23 07:53 BP 143/69 H 07/25/23 08:03 Pulse Ox 93 07/25/23 07:53 O2 Del Method Room Air 07/25/23 07:53 BMI result Body Mass Index 20.0 Const: General: cooperative, comfortable, no acute distress, alert and awake Nutritional Appearance: average body habitus Orientation/consciousness: patient oriented x3 Resp: Effort & Inspection: normal respiratory effort, able to speak in complete sentences, no respiratory distress and no use of accessory muscles Cardio: Rate: regular rate GI: Inspection: No distended Palpation (GI): Soft to palpation and nontender Neuro: General: patient oriented x3, moves all extremities and CN's II-XI intact bilaterally DS: Data Data Completed and Pending Completed studies during hospitalization [Text1]: Procedures Control Bleeding in Gastrointestinal Tract, Via Natural or Artificial Opening Endoscopic (07/13/23) Excision of Ascending Colon, Via Natural or Artificial Opening Endoscopic, Diagnostic (07/13/23) Excision of Duodenum, Via Natural or Artificial Opening Endoscopic, Diagnostic (07/13/23) Excision of Sigmoid Colon, Via Natural or Artificial Opening Endoscopic, Diagnostic (07/13/23) Excision of Stomach, Pylorus, Via Natural or Artificial Opening Endoscopic, Diagnostic (07/13/23) Introduction of Other Therapeutic Substance into Lower GI, Via Natural or Artificial Opening Endoscopic (07/13/23) Reposition Right Fibula, External Approach (02/08/21) Reposition Right Tibia with Internal Fixation Device, Open Approach (02/08/21) Reposition Right Tibia, External Approach (02/08/21) Transfusion of Nonautologous Red Blood Cells into Peripheral Vein, Percutaneous Approach (07/13/23) Labs on day of discharge: Laboratory Results - last 24 hr 07/25/23 07:38 WBC 12.5 H RBC 4.23 Hgb 9.6 L Hct 31.3 L MCV 74.0 L MCH 22.7 L MCHC 30.7 L RDW 24.9 H Plt Count 283 MPV 9.9 Absolute Nucleated RBC 0.000 Nucleated RBC % (auto) 0.0 Preliminary micro results at discharge 07/21/23 21:20 Blood Culture - Preliminary Blood - Venous No growth after 48 hours. 07/21/23 20:39 Blood Culture - Preliminary Blood - Venous No growth after 48 hours. Discharge Plan Discharge Anticipated Discharge Date/Time: 07/25/23 10:53 Patient Disposition: Home, Self-Care Discharge Diagnosis: enterocolitis GI bleeding Referrals: Cesar Estrada MD [Primary Care Provider] - 1 Week Mike Ruiz MD [Physician] - 1 Week Discharge Medications: New metronidazole 500 mg tablet 500 mg PO Q8H 4 Days Qty: 12 0RF cefuroxime axetil 250 mg tablet 250 mg PO Q12H 4 Days Qty: 8 0RF docusate sodium [Colace] 100 mg capsule 100 mg PO DAILY Qty: 60 0RF Continued atorvastatin 10 mg tablet 10 mg PO DAILY valsartan 320 mg tablet 320 mg PO DAILY@1200 estradiol 0.01 % (0.1 mg/gram) cream 1 g vaginal SUWE metoprolol succinate 50 mg tablet extended release 24 hr 50 mg PO BID digoxin [Digox] 125 mcg (0.125 mg) tablet 125 mcg PO DAILY@1800 levothyroxine [Synthroid] 100 mcg Tablet 100 mcg PO DAILY@0600 Qty: 90 0RF omeprazole 20 mg Capsule,Delayed Release(Dr/Ec) 20 mg PO BID@0630,1630 Qty: 180 0RF pramoxine 1 % Foam 1 appl MO BID Qty: 15 1RF nifedipine 30 mg tablet extended release 24hr 30 mg PO DAILY@0900 Protocol: Hold for SBP< HOLD for SBP < : 90 Held Eliquis 5 mg tablet 5 mg PO BID Hold Instructions: Resume on 07/29 Discharge Orders: Discharge Order (Routine); Ordered 07/25/23 Ordered By: Jessie Chung Diet: high fiber diet Activity on Discharge: As tolerated Stand Alone Forms: Patient Portal Discharge page Print Language: [place] Care Plan Goals: See below Health Concerns: Enterocolitis GI bleeding Plan of Treatment: Complete 4 more days of antibiotics as prescribed GI bleeding likely secondary to internal hemorrhoids - continue to use pramoxine rectal foam as previously prescribed. Twice daily x1 week and then as needed for hemorrhoids. Recommend high-fiber diet, avoid straining during bowel movements. Outpatient follow-up with GI as previously recommended Hold Eliquis until July 29 Recommend MRCP to evaluate dilation of the pancreatic duct Assessment: See discharge summary Patient Instructions: Diverticulosis Diet (GEN)
--- NOTE | 2023-07-25 11:24 | MHC.CM.PN ---
Patient has been medically cleared for dc to home today, self care. CM met with Patient at bedside and addressed IMM with her, providing Patient with the original and a copy has been placed on the chart.
[2023-07-25 11:34] VITALS: BP 131/75; PULSE 74; RESP 18; TEMP 36.6; O2SAT 94
[2023-07-25 11:51] VITALS: BP 131/75
[2023-07-25] MEDS: Valsartan 320 MG TABLET PO (11:51)
== END 2023-07-25 14:38 | disposition home or self-care (01) | DRG 392 ==
LOC: HO.ED 18:36 → HO.EDOVER 22:01 → HO.IMC 07-22 17:20
PROVIDERS: Admitting Provider Internal Medicine; Emergency Provider Emergency Medicine Emergency Medical Services; PCP Internal Medicine; Visit Provider Physician Assistant Medical
DX: A09 Infectious gastroenteritis and colitis, unspecified (principal); E89.0 Postprocedural hypothyroidism; I48.91 Unspecified atrial fibrillation; I10 Essential (primary) hypertension; E78.5 Hyperlipidemia, unspecified; K64.8 Other hemorrhoids; Z20.822 Contact with and (suspected) exposure to COVID-19; Z79.890 Hormone replacement therapy; Z79.899 Other long term (current) drug therapy
CPT/HCPCS: 0241U; 36415; 74177; 74178; 80053; 80162; 82272; 83605; 83690; 83735; 85025; 85027; 85610; 85730; 86140; 86850; 86900; 86901; 87040; 99285; C9113; J0696; J1836; J2270; J2405; J2543; J7120; Q9967

== ENCOUNTER → 2023-07-21 21:34 | Outpatient (BNV) | payer MEDICARE, SELFPAY | PROVIDERS: Admitting Provider Internal Medicine; Emergency Provider Emergency Medicine Emergency Medical Services; PCP Internal Medicine; Visit Provider Internal Medicine | DX: R10.9 Unspecified abdominal pain (principal); K92.2 Gastrointestinal hemorrhage, unspecified | CPT/HCPCS: 99222; 99232; 99233; 99239 ==

== ENCOUNTER → 2023-07-21 21:34 | Outpatient (BNV) | payer MEDICARE, SELFPAY | PROVIDERS: Admitting Provider Internal Medicine; Emergency Provider Emergency Medicine Emergency Medical Services; PCP Internal Medicine; Visit Provider Internal Medicine | DX: R10.9 Unspecified abdominal pain (principal); R19.7 Diarrhea, unspecified; R11.10 Vomiting, unspecified; K92.2 Gastrointestinal hemorrhage, unspecified | CPT/HCPCS: 99222 ==